=== PATIENT | male | born 1950 | race Caucasian/White ===

== ENCOUNTER 2017-02-25 14:32 | Emergency (ER) | payer OTHER, BC ==
[~2017-02-25] VITALS: Ht 167.6 cm; Wt 87.5 kg
[~2017-02-25 14:32] MED LIST: ACET-2619 PO; CLON0.5T PO; Oxcarbazepine PO; PREG225C PO; RIVA15TA1 PO; TAMS0.4C97 PO; VENL150T PO; ZONI100C5 PO; [UNRECOGNIZED DRUG - CODE] PO; [UNRECOGNIZED DRUG - CODE] PO
[2017-02-25 14:35] VITALS: BP 119/73
[2017-02-25] MEDS ORDERED: ACETAMINOPHEN 325 MG TAB PO ONE (14:55)
[2017-02-25 16:12] VITALS: BP 121/71
== END 2017-02-25 16:11 | disposition home or self-care (01) ==
LOC: MED 14:32
DX: M79.674 Pain in right toe(s) (principal)
CPT/HCPCS: 73630; 99284; Q0092

== ENCOUNTER 2017-03-04 09:45 | Emergency (ER) | payer OTHER, BC ==
[~2017-03-04] VITALS: Ht 167.6 cm; Wt 86.6 kg
[2017-03-04 09:53] VITALS: BP 158/113
--- NOTE | 2017-03-04 10:20 | NUR ---
PT BIB CAREGIVER FOR EVALUATION OF URINARY FREQUENCY X2 DAYS. HX SEIZURE DISORDER, BPH, ANXIETY, GERD, DEPRESSION, DVT RIGHT LEG. DENIES N/V/D; SKIN IS PINK/WARM/DRY; AAOX4 WITH EVEN AND STEADY GAIT; LUNGS CLEAR BL; HR EVEN AND REGULAR; PT DENIES ANY FEVER, CP, SOB, OR COUGH AT THIS TIME; PATIENT STATES PAIN OF 0/10 AT THIS TIME; VSS; PATIENT POSITIONED FOR COMFORT; HOB ELEVATED; BEDRAILS UP X2; BED DOWN. ER MD MADE AWARE OF PT STATUS.
--- NOTE | 2017-03-04 10:22 | NUR ---
DR GARCIA EVALUATING THE PT WITH TRACK HELPER AT BEDSIDE
--- NOTE | 2017-03-04 10:49 | NUR ---
PT TAKEN TO CT VIA [facility]
[2017-03-04 10:52] LABS: BASOPHILS # (AUTO) 0.2 K/uL (0.00-0.22); EOSINOPHILS # (AUTO) 0.5 K/uL (0-0.4); MEAN CORPUSCULAR HEMOGLOBIN 29 pg (27-31)
[2017-03-04 10:57] LABS: BASOPHILS % (AUTO) 2.1 % (0.0-2.0); EOSINOPHILS % (AUTO) 6.9 % (0.0-4.0); HEMATOCRIT 50.7 % (36-52); LYMPHOCYTES # (AUTO) 1.3 K/uL (2.0-11.5); LYMPHOCYTES % (AUTO) 16.2 % (20.5-51.1); MEAN CORPUSCULAR HGB CONC 34 g/dL (33-37); MEAN CORPUSCULAR VOLUME 85 fL (80-94); MONOCYTES # (AUTO) 0.5 K/uL (0.8-1.0); MONOCYTES % (AUTO) 6.6 % (1.7-9.3); NEUTROPHILS # (AUTO) 5.3 K/uL (1.8-7.7); NEUTROPHILS % (AUTO) 68.2 % (42.2-75.2); PLATELET COUNT (AUTO) 193 K/uL (140-450); RED BLOOD CELL COUNT(AUTO) 5.94 MIL/uL (4.20-6.10); RED CELL DISTRIBUTION WIDTH 12.1 % (11.6-13.7)
[2017-03-04 11:06] LABS: ANION GAP 11.1 (8-16); CALCIUM 9.5 mg/dL (8.5-10.1); CARBON DIOXIDE 28.4 mmol/L (21-32); CREATININE 1.3 mg/dL (0.7-1.3); POTASSIUM 3.5 mmol/L (3.5-5.1)
[2017-03-04 11:11] LABS: ALBUMIN 3.9 g/dL (3.4-5.0); INR 1.3 (0.8-1.2); PARTIAL THROMBOPLASTIN TIME 28.8 secs (22-35.6); PROTHROMBIN TIME 12.9 secs (10.8-13.4); TOTAL BILIRUBIN 0.5 mg/dL (0.0-1.0); TOTAL PROTEIN, SERUM 7.2 g/dL (6.4-8.2); WHITE BLOOD COUNT (AUTO) 7.8 K/uL (4.8-10.8)
[2017-03-04 12:07] LABS: APPEARANCE,URINE CLEAR (CLEAR); BILIRUBIN,URINE NEGATIVE (NEGATIVE); BLOOD, URINE NEGATIVE (NEGATIVE); COLOR,URINE YELLOW (YELLOW); LEUKOCYTE ESTERASE ,URINE NEGATIVE (NEGATIVE); NITRITE, URINE NEGATIVE (NEGATIVE); PROTEIN,URINE NEGATIVE (NEGATIVE); UGLUCOSE NEGATIVE (NEGATIVE); UROBILINOGEN,URINE 0.2 EU/dL (0.2 - 1)
[2017-03-04 12:15] VITALS: BP 128/78
--- NOTE | 2017-03-04 12:15 | NUR ---
Patient discharged with v/s stable. Written and verbal after care instructions given and explained. Patient verbalized understanding. Ambulatory with steady gait. All questions addressed prior to discharge. Advised to follow up with PMD.
== END 2017-03-04 12:15 | disposition home or self-care (01) ==
LOC: MED 09:45
DX: R32 Unspecified urinary incontinence (principal); R53.1 Weakness; Z86.718 Personal history of other venous thrombosis and embolism; J45.909 Unspecified asthma, uncomplicated; Z85.828 Personal history of other malignant neoplasm of skin; F03.90 Unspecified dementia, unspecified severity, without behavioral disturbance, psychotic disturbance, mood disturbance, and anxiety
CPT/HCPCS: 36415; 70450; 71010; 80053; 81003; 84484; 85025; 85610; 85730; 93005; 99285; Q0092

== ENCOUNTER 2017-08-25 17:02 | Emergency (ER) | payer OTHER, BC ==
[~2017-08-25] VITALS: Ht 172.7 cm; Wt 85.5 kg
[~2017-08-25 17:02] MED LIST changes: +RISP1TAB PO; -[UNRECOGNIZED DRUG - CODE] PO
[2017-08-25 17:11] VITALS: BP 151/115
[2017-08-25] MEDS ORDERED: ONDANSETRON 4 MG/2 ML VIAL IVP ONE (17:15)
[2017-08-25] MEDS ORDERED: DICYCLOMINE HCL LIQUID 20 MG, ALUMINUM HYD/MAG/SIMETHICONE 30 ML, LIDOCAINE VISCOUS 2% ... PO ONE ×3 (17:15)
[2017-08-25] MEDS ORDERED: FAMOTIDINE 20 MG/2 ML VIAL IVP ONE (17:15)
[2017-08-25] MEDS ORDERED: NITROGLYCERIN 2% 1 GM PKT TP ONE (17:15)
[2017-08-25] MEDS ORDERED: ASPIRIN 325 MG TAB PO ONE (17:15)
[2017-08-25 17:58] LABS: BASOPHILS # (AUTO) 0.3 K/uL (0.00-0.22); EOSINOPHILS # (AUTO) 0.2 K/uL (0-0.4); HEMOGLOBIN 17.2 g/dL (12.0-18.0); LYMPHOCYTES # (AUTO) 0.9 K/uL (2.0-11.5); MEAN CORPUSCULAR HEMOGLOBIN 28 pg (27-31); MEAN CORPUSCULAR HGB CONC 33 g/dL (33-37); MEAN CORPUSCULAR VOLUME 86 fL (80-94); MONOCYTES # (AUTO) 0.2 K/uL (0.8-1.0); NEUTROPHILS # (AUTO) 6.3 K/uL (1.8-7.7); PLATELET COUNT (AUTO) 171 K/uL (140-450); RED BLOOD CELL COUNT(AUTO) 6.18 MIL/uL (4.20-6.10); RED CELL DISTRIBUTION WIDTH 12.4 % (11.6-13.7); WHITE BLOOD COUNT (AUTO) 7.9 K/uL (4.8-10.8)
--- NOTE | 2017-08-25 18:00 | NUR ---
PATIENT IS A 67 MALE BIB SELF FOR CHEST PAIN HAS A [facility] CALLED AND ACCEPTED TRANSFER IS TAKING PLACE AT THIS WRITING.
[2017-08-25 18:08] VITALS: BP 170/104
--- NOTE | 2017-08-25 18:09 | NUR ---
Patient discharged with v/s stable. Written and verbal after care instructions given and explained. Patient verbalized understanding. Ambulance Transport with [facility] TO [facility] All questions addressed prior to discharge. Advised to follow up with PMD.
--- NOTE | 2017-08-25 18:20 | NUR ---
UNABLE TO ESTABLISH IV AFTER SEVERAL ATTEMPTS, ALSO DUE TO TIME CONSTRAINTS NO MEDS WERE GIVEN WE WERE A NURSE SHORT AND I COULD NOT LEAVE PATIENT TO GET MEDS.
[2017-08-25 18:52] LABS: PROTHROMBIN TIME 10.7 secs (10.8-13.4)
== END 2017-08-25 18:20 | disposition short-term general hospital (02) ==
LOC: MED 17:02
DX: I21.3 ST elevation (STEMI) myocardial infarction of unspecified site (principal); Z85.828 Personal history of other malignant neoplasm of skin; F03.90 Unspecified dementia, unspecified severity, without behavioral disturbance, psychotic disturbance, mood disturbance, and anxiety
CPT/HCPCS: 36415; 71045; 83880; 84484; 85025; 85610; 85730; 93005; 99291; Q0092

== ENCOUNTER 2017-09-08 14:36 | Emergency (ER) | payer OTHER, BC ==
[~2017-09-08] VITALS: Ht 172.7 cm; Wt 83.1 kg
[2017-09-08 16:10] VITALS: BP 135/85
--- NOTE | 2017-09-08 18:38 | NUR ---
PATIENT PRESENTS TO ED WITH right dorsal hand skin tear . PT STATES [he almost fell in the restroom while voiding---injured self when breaking fall by holding self against restroom wall] . DENIES N/V/D; SKIN IS PINK/cool/DRY; AAOX4 WITH EVEN AND STEADY GAIT; LUNGS CLEAR BL; HR EVEN AND REGULAR; PT DENIES ANY FEVER, CP, SOB, OR COUGH AT THIS TIME; PATIENT STATES PAIN OF 6/10 AT THIS TIME; VSS; PATIENT POSITIONED FOR COMFORT; HOB ELEVATED; BEDRAILS UP X2; BED DOWN. ER MD MADE AWARE OF PT STATUS.
[2017-09-08] MEDS ORDERED: NEOMYCIN/POLYMYXIN/BACITRACIN 0.9 GM/1 PKT TP ONE (18:45)
--- NOTE | 2017-09-08 19:13 | NUR ---
neosporin applied and gauze placed----
[2017-09-08 19:23] VITALS: BP 122/79
--- NOTE | 2017-09-08 19:23 | NUR ---
Patient discharged with v/s stable. Written and verbal after care instructions given and explained. Patient alert, oriented and verbalized understanding of instructions. Wheel Chair Assisted with to detention. All questions addressed prior to discharge. ID band removed. Patient advised to follow up with PMD. Rx of NEOSPORIN given. Patient educated on indication of medication including possible reaction and side effects. Opportunity to ask questions provided and answered.
== END 2017-09-08 19:23 | disposition home or self-care (01) ==
LOC: MED 14:36
DX: S60.221A Contusion of right hand, initial encounter (principal); I25.2 Old myocardial infarction; Z85.828 Personal history of other malignant neoplasm of skin; W22.01XA Walked into wall, initial encounter; Y93.89 Activity, other specified; Y92.89 Other specified places as the place of occurrence of the external cause; Y99.8 Other external cause status
CPT/HCPCS: 90471; 90715; 99283

== ENCOUNTER 2018-05-23 23:02 | Emergency (ER) | payer OTHER, BC ==
[~2018-05-23] VITALS: Ht 162.6 cm; Wt 77.1 kg
[2018-05-23 23:05] VITALS: BP 134/87
[2018-05-24] MEDS ORDERED: XALOS OP (00:19)
[2018-05-24] MEDS ORDERED: LEVO5TAB32 PO (00:19)
[2018-05-24] MEDS ORDERED: VITE200 PO (00:19)
[2018-05-24] MEDS ORDERED: CALCIUM +D3 (00:19)
[2018-05-24] MEDS ORDERED: FIBER CAPSULE (00:19)
[2018-05-24] MEDS ORDERED: ROSU5TAB PO (00:19)
[2018-05-24] MEDS ORDERED: RANI-485 PO (00:19)
[2018-05-24] MEDS ORDERED: VITD1000 PO (00:19)
[2018-05-24] MEDS ORDERED: TICA90TA PO (00:19)
[2018-05-24] MEDS ORDERED: VITB12 PO (00:19)
[2018-05-24] MEDS ORDERED: DOCU-61 PO (00:19)
[2018-05-24] MEDS ORDERED: RISP0.5T3 PO (00:26)
[2018-05-24] MEDS: NACL 0.9% 1,000 ML IV ONE (01:52)
[2018-05-24 01:53] LABS: HEMATOCRIT 46.5 % (36-52); HEMOGLOBIN 15.7 g/dL (12.0-18.0); MEAN CORPUSCULAR HEMOGLOBIN 30 pg (27-31); MEAN CORPUSCULAR HGB CONC 34 g/dL (33-37); MEAN CORPUSCULAR VOLUME 87.9 fL (80-94); PLATELET COUNT (AUTO) 169 K/uL (140-450); RED BLOOD CELL COUNT(AUTO) 5.28 MIL/uL (4.20-6.10); RED CELL DISTRIBUTION WIDTH 13.3 % (11.6-13.7); WHITE BLOOD COUNT (AUTO) 6.4 K/uL (4.8-10.8)
[2018-05-24 02:04] LABS: EOSINOPHILS % (MANUAL) 3 % (0-4); LYMPHOCYTES % (MANUAL) 27 % (20-46); MONOCYTES % (MANUAL) 9 % (5-12)
[2018-05-24 02:06] LABS: ANION GAP 10.5 (8-16); CARBON DIOXIDE 26.4 mmol/L (21-32); POTASSIUM 4.9 mmol/L (3.5-5.1)
[2018-05-24 02:08] LABS: APPEARANCE,URINE BLOODY (CLEAR); BILIRUBIN,URINE NEGATIVE (NEGATIVE); BLOOD, URINE 3+ (NEGATIVE); COLOR,URINE BLOODY (YELLOW); LEUKOCYTE ESTERASE ,URINE NEGATIVE (NEGATIVE); NITRITE, URINE NEGATIVE (NEGATIVE); PH,URINE 7.5 (5.0-9.0); UGLUCOSE NEGATIVE (NEGATIVE)
[2018-05-24 02:09] LABS: RBC,URINE TOO NUMEROUS TO COUN /HPF (0-5); WBC,URINE 0-5 (RARE) /HPF (0-5)
[2018-05-24 02:13] LABS: ALBUMIN 3.8 g/dL (3.4-5.0); TOTAL BILIRUBIN 0.3 mg/dL (0.0-1.0)
[2018-05-24 03:57] VITALS: BP 164/92
== END 2018-05-24 03:58 | disposition home or self-care (01) ==
LOC: MED 23:02
DX: R31.9 Hematuria, unspecified (principal); N20.0 Calculus of kidney; F03.90 Unspecified dementia, unspecified severity, without behavioral disturbance, psychotic disturbance, mood disturbance, and anxiety; Z85.828 Personal history of other malignant neoplasm of skin; Z79.899 Other long term (current) drug therapy
CPT/HCPCS: 36415; 80053; 81001; 83690; 85025; 99285; C1758; J7030

== ENCOUNTER 2018-06-09 17:58 | Emergency (ER) | payer OTHER, BC ==
[~2018-06-09] VITALS: Ht 177.8 cm; Wt 95.3 kg
[~2018-06-09 17:58] MED LIST changes: +CALCIUM +D3; +DOCU-61 PO; +FIBER CAPSULE; +LEVO5TAB32 PO; +RANI-485 PO; +RISP0.5T3 PO; -RISP1TAB PO; +ROSU5TAB PO; +TICA90TA PO; +VITB12 PO; +VITD1000 PO; +VITE200 PO; +XALOS OP
--- NOTE | 2018-06-09 17:58 | NUR ---
PT BIBA ALS TO BED 7
[2018-06-09 18:06] VITALS: BP 158/100
--- NOTE | 2018-06-09 18:10 | NUR ---
PATIENT BIBA W/C/O "2 SEIZURES TODAY." CAREGIVER STATES THE FIRST ONE WAS WITNESSED BY FAMILY, WAS A GRAN MAL AND LASTED FOR 2 MINS. THE SECOND SEZIURE WAS WITNESSED BY CAREGIVER WHO STATED THE PT WAS STANDING UP, PEEING, AND STARTED TO HAVE A SEZIURE. AND HELPED PT TO THE FLOOR BUT THE PT HIT HIS HEAD TO THE SINK. PT HAS SMALL BUMP ON BACK HEAD. DENIES ANY PAIN, PERRLA INTACT. PT POST ICTAL AT THIS TIME BUT KNOWS HIS NAME, BIRTHDAY AND [facility]. HX: SEZIURES, HTN, [place] IN 2017, DEMENTIA AND BLOOD CLOTS. NKA. DENIES N/V/D; SKIN IS PINK/WARM/DRY; LUNGS CLEAR BL; HR EVEN AND REGULAR; PT DENIES ANY FEVER, CP, SOB, OR COUGH AT THIS TIME; VSS; PATIENT POSITIONED FOR COMFORT; HOB ELEVATED; BEDRAILS UP X2; BED DOWN. ER MD MADE AWARE OF PT STATUS.
--- NOTE | 2018-06-09 18:13 | NUR ---
Patient being evaluated by physician at bedside.
[2018-06-09] MEDS ORDERED: ZONI100C5 PO (18:20)
[2018-06-09] MEDS ORDERED: LORazepam 2 MG/ML VIAL IVP ONE (18:20)
[2018-06-09] MEDS ORDERED: OXCA300T PO (18:20)
--- NOTE | 2018-06-09 18:37 | NUR ---
PT TAKEN TO CT IN [facility]
--- NOTE | 2018-06-09 18:47 | NUR ---
PT RETURNED FROM CT
--- NOTE | 2018-06-09 19:00 | NUR ---
16FR TEMPLE CATHETER INSERTED, PT TOLERATED WELL. URINE COLLECTED AND SENT TO LAB.
[2018-06-09 19:08] LABS: BASOPHILS % (AUTO) 0.2 % (0.0-2.0); EOSINOPHILS % (AUTO) 0.6 % (0.0-4.0); HEMATOCRIT 51.3 % (36-52); HEMOGLOBIN 17.4 g/dL (12.0-18.0); LYMPHOCYTES # (AUTO) 0.4 K/uL (2.0-11.5); LYMPHOCYTES % (AUTO) 6.7 % (20.5-51.1); MEAN CORPUSCULAR HEMOGLOBIN 30 pg (27-31); MEAN CORPUSCULAR HGB CONC 34 g/dL (33-37); MEAN CORPUSCULAR VOLUME 88.1 fL (80-94); MONOCYTES # (AUTO) 0.3 K/uL (0.8-1.0); MONOCYTES % (AUTO) 4.6 % (1.7-9.3); NEUTROPHILS # (AUTO) 5.4 K/uL (1.8-7.7); NEUTROPHILS % (AUTO) 87.9 % (42.2-75.2); PLATELET COUNT (AUTO) 194 K/uL (140-450); RED BLOOD CELL COUNT(AUTO) 5.82 MIL/uL (4.20-6.10); WHITE BLOOD COUNT (AUTO) 6.2 K/uL (4.8-10.8)
--- NOTE | 2018-06-09 19:13 | NUR ---
Patient being evaluated by physician at bedside. Addendum: 06/09/18 at 1914 by LINDSEY GIOVANNY)
--- NOTE | 2018-06-09 19:15 | NUR ---
PT LYING IN BED, STATED HE WAS NOT HAVING PAIN AT THIS TIME. VITALS STABLE.
--- NOTE | 2018-06-09 19:17 | NUR ---
report given to security shift manager nurse for continue of care. pt is resting in bed, no s/s of distress, vss, denies pain.
--- NOTE | 2018-06-09 19:17 | NUR ---
SEIZURE PRECAUTIONS IN PLACE. ER MADE AWARE
[2018-06-09 19:29] LABS: APPEARANCE,URINE HAZY (CLEAR); COLOR,URINE YELLOW (YELLOW)
[2018-06-09 19:30] LABS: BILIRUBIN,URINE NEGATIVE (NEGATIVE); BLOOD, URINE TRACE (NEGATIVE); LEUKOCYTE ESTERASE ,URINE NEGATIVE (NEGATIVE); NITRITE, URINE NEGATIVE (NEGATIVE); UGLUCOSE NEGATIVE (NEGATIVE)
[2018-06-09 19:31] LABS: RBC,URINE 3-10 (FEW) /HPF (0-5); WBC,URINE 0-5 (RARE) /HPF (0-5)
[2018-06-09 19:38] LABS: PROTHROMBIN TIME 12.1 secs (10.8-13.4)
[2018-06-09 20:10] LABS: ANION GAP 12.3 (8-16); ASPARTATE AMINOTRANSFERASE 23 U/L (15-37); CARBON DIOXIDE 25.7 mmol/L (21-32); CHLORIDE 96 mmol/L (98-107); CREATININE 1.2 mg/dL (0.7-1.3); GFR ARICAN-AMERICAN 78 mL/min (>90); GLUCOSE 125 mg/dL (74-106); SODIUM SERUM 130 mmol/L (136-145); TOTAL BILIRUBIN 0.5 mg/dL (0.0-1.0); UREA NITROGEN, BLOOD 12 mg/dL (7-18)
[2018-06-09 20:11] LABS: ACETAMINOPHEN < 0.5 ug/ml (10-30); FREE T4 (FREE THYROXINE) 0.75 ng/dL (0.76-1.46); PHENYTOIN (DILANTIN) < 0.5 ug/ml (10.0-20.0); SALICYLATE < 2.8 mg/dL (2.8-20.0); THYROID STIMULATING HORMONE 5.77 uIU/mL (0.34-3.74)
--- NOTE | 2018-06-09 20:40 | NUR ---
F/C D/C. PT TOLERATED WELL.
[2018-06-09 20:43] VITALS: BP 147/81
--- NOTE | 2018-06-09 20:43 | NUR ---
Patient discharged with v/s stable. Written and verbal after care instructions given and explained. Patient verbalized understanding. Wheel Chair Assisted with by caregiver. All questions addressed prior to discharge. Advised to follow up with PMD.
[2018-06-10 12:53] LABS: T3 UPTAKE 23 % (24-39)
== END 2018-06-09 20:43 | disposition home or self-care (01) ==
LOC: MED 17:58
DX: S09.90XA Unspecified injury of head, initial encounter (principal); G40.909 Epilepsy, unspecified, not intractable, without status epilepticus; F03.90 Unspecified dementia, unspecified severity, without behavioral disturbance, psychotic disturbance, mood disturbance, and anxiety; Z79.899 Other long term (current) drug therapy; Z85.828 Personal history of other malignant neoplasm of skin; W22.03XA Walked into furniture, initial encounter; Y93.89 Activity, other specified; Y92.89 Other specified places as the place of occurrence of the external cause; Y99.8 Other external cause status
CPT/HCPCS: 36415; 70450; 71045; 80053; 80173; 80185; 81001; 82550; 82948; 83605; 83735; 84439; 84443; 84479; 84484; 85025; 85379; 85610; 85730; 96374; 99285; G0480; G0482; J2060

== ENCOUNTER 2018-08-08 16:16 | Inpatient (IN) | payer OTHER, BC ==
[~2018-08-08] VITALS: Ht 165.1 cm; Wt 58.5 kg
[~2018-08-08 16:16] MED LIST changes: +OXCA300T PO
--- NOTE | 2018-08-08 16:20 | NUR ---
nursing students inserted iv right forearm 22ga---pt c/o pain after 10 mins noted infiltration -----heat bad applied; iv d/c'd
[2018-08-08 16:22] VITALS: BP 134/95
--- NOTE | 2018-08-08 16:29 | NUR ---
PT AMBULATES WITH WALKER ASSISTANCE TO BED 11
--- NOTE | 2018-08-08 16:43 | NUR ---
PATIENT PRESENTS TO ED WITH C/O LEFT GREAT TOE INGROWN REDNESS SWELLING TENDER >4 DAYS . DENIES N/V/D; SKIN IS PINK/WARM/DRY; AAOX4 WITH EVEN AND STEADY GAIT; LUNGS CLEAR BL; HR EVEN AND REGULAR; PT DENIES ANY FEVER, CP, SOB, OR COUGH AT THIS TIME; PATIENT STATES PAIN OF 7/10 AT THIS TIME; VSS; PATIENT POSITIONED FOR COMFORT; HOB ELEVATED; BEDRAILS UP X2; BED DOWN. ER MD MADE AWARE OF PT STATUS.
[2018-08-08] MEDS ORDERED: NACL 0.9% 500 ML IV SCH (16:44)
[2018-08-08] MEDS ORDERED: PIPERACILLIN/TAZOBACTAM 3.375 GM in DEXT 5% MINI-BAG PLUS 50 ML IV ONE (16:45)
[2018-08-08] MEDS ORDERED: NEOMYCIN/POLYMYXIN/BACITRACIN 0.9 GM/1 PKT TP ONE (16:45)
[2018-08-08] MEDS ORDERED: ONDANSETRON 4 MG/2 ML VIAL IM/IVP PRN (16:50)
[2018-08-08] MEDS ORDERED: LORazepam 2 MG/ML VIAL IM/IVP PRN (16:50)
[2018-08-08] MEDS ORDERED: ZOLPIDEM 5 MG TAB PO PRN (16:50)
[2018-08-08] MEDS ORDERED: HYDROcodone/APAP 5/325 MG 1 TAB TAB PO PRN (16:50)
[2018-08-08] MEDS ORDERED: ACETAMINOPHEN 325 MG TAB PO PRN (16:50)
[2018-08-08] MEDS ORDERED: DOCUSATE SODIUM 100 MG GELCAP PO PRN (16:50)
[2018-08-08] MEDS ORDERED: INFLUENZA VIRUS VACCINE QUAD 0.5 ML SYR IMVAC PRN (16:55)
[2018-08-08] MEDS ORDERED: PIPERACILLIN/TAZOBACTAM 3.375 GM VIAL IV ONE ×2 (17:06→20:46)
[2018-08-08 17:25] LABS: BASOPHILS # (AUTO) 0.1 K/uL (0.00-0.22); BASOPHILS % (AUTO) 1.3 % (0.0-2.0); EOSINOPHILS # (AUTO) 0.4 K/uL (0-0.4); EOSINOPHILS % (AUTO) 7.2 % (0.0-4.0); HEMATOCRIT 47.9 % (36-52); HEMOGLOBIN 16.1 g/dL (12.0-18.0); LYMPHOCYTES # (AUTO) 0.6 K/uL (2.0-11.5); LYMPHOCYTES % (AUTO) 11.9 % (20.5-51.1); MEAN CORPUSCULAR HEMOGLOBIN 30 pg (27-31); MEAN CORPUSCULAR HGB CONC 34 g/dL (33-37); MEAN CORPUSCULAR VOLUME 88.4 fL (80-94); MONOCYTES # (AUTO) 0.3 K/uL (0.8-1.0); MONOCYTES % (AUTO) 5.7 % (1.7-9.3); NEUTROPHILS # (AUTO) 3.8 K/uL (1.8-7.7); NEUTROPHILS % (AUTO) 73.9 % (42.2-75.2); PLATELET COUNT (AUTO) 195 K/uL (140-450); RED BLOOD CELL COUNT(AUTO) 5.42 MIL/uL (4.20-6.10); RED CELL DISTRIBUTION WIDTH 13.1 % (11.6-13.7); WHITE BLOOD COUNT (AUTO) 5.2 K/uL (4.8-10.8)
--- NOTE | 2018-08-08 17:27 | NUR ---
XRAY AT BEDSIDE
[2018-08-08 17:35] LABS: ANION GAP 12.1 (8-16); CARBON DIOXIDE 27.5 mmol/L (21-32); CREATININE 1.4 mg/dL (0.7-1.3); POTASSIUM 4.6 mmol/L (3.5-5.1)
[2018-08-08 17:40] LABS: MAGNESIUM 2.3 mg/dL (1.8-2.4); TOTAL BILIRUBIN 0.3 mg/dL (0.0-1.0)
[2018-08-08 17:42] LABS: PROTHROMBIN TIME 10.5 secs (10.8-13.4)
[2018-08-08 17:51] LABS: PHOSPHORUS 3.6 mg/dL (2.5-4.9); THYROID STIMULATING HORMONE 2.03 uIU/mL (0.34-3.74)
--- NOTE | 2018-08-08 17:56 | NUR ---
x-rays completed at bedside labs collected samples
--- NOTE | 2018-08-08 18:08 | NUR ---
PT TAKEN TO TELE FLOOR BY SERENA CHACON AND LUCAS MUELLER
[2018-08-08] MEDS: NACL 0.9% 1,000 ML IV SCH (18:20)
--- NOTE | 2018-08-08 18:20 | NUR ---
RECEIVED PT FROM ER NURSE VIA [facility], PT IS AWAKE AND ALERT AND AMBULATED WITH ASSIST TO THE BED, PT USES WALKER, MADE COMFORTABLE ON THE BED, SIDE RAILS UP AND PADDED, CALL LIGHT WITHIN REACH, SEIZURE PRECAUTION ENFORCED. PT HAS AN IV LINE ON THE LEFT HAND G. 22. PT HAS A LEFT BIG TOE WOUND FROM AN INGROWN, SERVICED BY CRIMINAL ANALYST, NO SOB NOTED AND WILL ENDORSE PT TO TRAVELING BUYER NURSE.
--- NOTE | 2018-08-08 18:22 | NUR ---
Pt transferred to Tele via [facility] ROOM 105-A REPORT GIVEN TO RN
--- NOTE | 2018-08-08 18:30 | NUR ---
MRSA SWAB DONE TO PT AND SAMPLE WAS SENT TO LAB. ARM BANDS PLACED AND FALL PRECAUTION INITIATED.
[2018-08-08] MEDS ORDERED: NITROGLYCERIN 0.4 MG TAB SL PRN (19:05)
[2018-08-08] MEDS ORDERED: LORazepam 2 MG/ML VIAL IVP PRN (19:05)
--- NOTE | 2018-08-08 19:25 | NUR ---
ENDORSED PT TO HELICOPTER UTILITY AIRCREWMAN NURSEWILBUR FOR CONTINUITY OF CARE, PT IS STILL EATING HIS DINNER WITH ON THE BEDSIDE. PT IS STABLE.
--- NOTE | 2018-08-08 19:26 | NUR ---
RECEIVED BEDSIDE REPORT. PT IS A&O X4. RESPIRATIONS ARE EQUAL AND UNLABORED. SEIZURE PRECAUTION ENFORCED. MADE COMFORTABLE ON THE BED, SIDE RAILS UP AND PADDED, CALL LIGHT WITHIN REACH. PT HAS AN IV LINE ON THE LEFT HAND G. 22. INFUSING PER ORDERS. PT HAS A LEFT BIG TOE WOUND FROM AN INGROWN, SERVICED BY TAPE RECORDER MECHANIC DONE EARLIER. UA PENDING PT IS AWARE. URINAL AT BEDISDE. PTS JEREMY IS AT BEDSIDE IS CONCERN ABOUT PATIENT RECEIVING ALL HIS HOME MEDS AT NIGHT. WILL FOLLOW UP. SAFETY MEASURES ARE IN PLACE.
[2018-08-08 20:00] VITALS: BP 157/91
[2018-08-08] MEDS: VENLAFAXINE XR 75 MG CAPER PO SCH (20:46)
[2018-08-08] MEDS: risperiDONE 1 MG TAB PO SCH (20:46)
[2018-08-08] MEDS: PREGABALIN 50 MG CAP PO SCH (20:48)
[2018-08-08] MEDS: OXcarbazepine 150 MG TAB PO SCH (20:49)
[2018-08-08] MEDS: METOPROLOL 25 MG TAB PO SCH (20:49)
[2018-08-08] MEDS: PIPER/TAZO 3.375GM/D5W PREMIX 50 ML IV SCH (20:50)
[2018-08-08] MEDS ORDERED: MEMANTINE 10 MG TAB PO ONE (20:55)
[2018-08-08] MEDS ORDERED: ZONISAMIDE 400 MG PO SCH (21:00)
[2018-08-08] MEDS: clonazePAM 0.5 MG TAB PO SCH (21:07)
--- NOTE | 2018-08-08 21:13 | NUR ---
ALL PATIENTS MEDS WERE GIVEN PTS WAS CONCERN THAT HE RECEIVES ZONISAMIDE. IS AWARE PT RECEIVED ALL HIS MEDS. WILL CONTINUE TO MONITOR. ALL NEEDS MET AT THIS TIME.
--- NOTE | 2018-08-08 21:25 | NUR ---
PT'S JEREMY WAS CONCERN ABOUT PT'S MEDICATIONS AT BED TIME SPECIALLY ZONISAMIDE(ZONEGRAN).BECAUSE WE DON'T CARRY THIS MED PHARMACY DIDN'T VERIFY THAT.BUT WE HAD PT'S MED HERE.TALKED W/RESIDENT .SHE SAID BECAUSE PT'S IS SO CONCERN ABOUT THAT GIVE TONIGHT.DOSE FOR TONIGHT GIVEN AND CALLED JEREMY (PT'S )AND TOLD HER THAT MED GIVEN TO PT.
[2018-08-08] MEDS ORDERED: TAMSULOSIN 0.4 MG CAP PO SCH (22:00)
[2018-08-08] MEDS ORDERED: MEMANTINE 10 MG TAB PO SCH (22:00)
--- NOTE | 2018-08-08 22:30 | NUR ---
ASSISTED PT WITH URINAL. UA COLLECTED AND SENT TO LAB. REPOSITION PT FOR COMFORT. ALL NEEDS MET AT THIS TIME. CALL LIGHT WITHIN REACH.
[2018-08-08 23:54] VITALS: BP 131/84
--- NOTE | 2018-08-08 23:57 | NUR ---
VITAL SIGNS ARE WITHIN NORMAL LIMITS. PT DENIES ANY PAIN. SAFETY MEASURES ARE IN PLACE. CALL LIGHT WITHIN REACH
[2018-08-09 01:43] LABS: APPEARANCE,URINE CLEAR (CLEAR); BILIRUBIN,URINE NEGATIVE (NEGATIVE); BLOOD, URINE NEGATIVE (NEGATIVE); COLOR,URINE YELLOW (YELLOW); LEUKOCYTE ESTERASE ,URINE NEGATIVE (NEGATIVE); NITRITE, URINE NEGATIVE (NEGATIVE); PH,URINE 7.5 (5.0-9.0); UGLUCOSE NEGATIVE (NEGATIVE)
[2018-08-09 01:50] LABS: BARBITURATE, URINE NEG. ng/ml (NEG <=200); BENZODIAZEPINE, URINE NEG. ng/mL (NEG <=200); CANNABINOID, URINE NEG. ng/mL (NEG <=50); COCAINE, URINE NEG. ng/mL (NEG <=300); OPIATE, URINE NEG. ng/mL (NEG <=2000); PHENCYCLIDINE SCREEN,URINE NEG. ng/mL (NEG <=25)
[2018-08-09 03:58] VITALS: BP 106/72
--- NOTE | 2018-08-09 04:03 | NUR ---
VITAL SIGNS ARE WITHIN NORMAL LIMITS. ALL NEEDS MET AT THIS TIME. CALL LIGHT WITHIN REACH
[2018-08-09] MEDS: PIPER/TAZO 3.375GM/D5W PREMIX 50 ML IV SCH ×3 (05:54→20:02)
[2018-08-09] MEDS: PANTOPRAZOLE 40 MG TABEC PO SCH (05:54)
--- NOTE | 2018-08-09 05:54 | NUR ---
ZOSYN NOW INFUSING PER ORDERS. DUE MEDICATION GIVEN. PT TOLERATED WELL. ALL NEEDS MET AT THIS TIME. WILL CONTINUE TO MONITOR.
[2018-08-09] MEDS ORDERED: PIPERACILLIN/TAZOBACTAM 3.375 GM VIAL IV ONE (05:58)
--- NOTE | 2018-08-09 06:10 | NUR ---
PATIENT HAS BEEN SCREENED AND CATEGORIZED MODERATE NUTRITION RISK. PATIENT WILL BE SEEN WITHIN 3-5 DAYS OF ADMISSION. 08/11/18-08/14/18 ABHIJEET SHORT MS, RDN
--- NOTE | 2018-08-09 07:26 | NUR ---
ENDORSED PATIENT TO DAY SHIFT RN. PT IN STABLE CONDITION.
[2018-08-09 07:30] LABS: BASOPHILS # (AUTO) 0.1 K/uL (0.00-0.22); BASOPHILS % (AUTO) 1.3 % (0.0-2.0); EOSINOPHILS # (AUTO) 0.3 K/uL (0-0.4); EOSINOPHILS % (AUTO) 6.4 % (0.0-4.0); HEMATOCRIT 44.4 % (36-52); HEMOGLOBIN 14.9 g/dL (12.0-18.0); LYMPHOCYTES # (AUTO) 1.7 K/uL (2.0-11.5); LYMPHOCYTES % (AUTO) 32.5 % (20.5-51.1); MEAN CORPUSCULAR HEMOGLOBIN 30 pg (27-31); MEAN CORPUSCULAR HGB CONC 34 g/dL (33-37); MEAN CORPUSCULAR VOLUME 87.8 fL (80-94); MONOCYTES # (AUTO) 0.5 K/uL (0.8-1.0); MONOCYTES % (AUTO) 8.5 % (1.7-9.3); NEUTROPHILS # (AUTO) 2.7 K/uL (1.8-7.7); NEUTROPHILS % (AUTO) 51.3 % (42.2-75.2); PLATELET COUNT (AUTO) 178 K/uL (140-450); RED BLOOD CELL COUNT(AUTO) 5.06 MIL/uL (4.20-6.10); RED CELL DISTRIBUTION WIDTH 12.7 % (11.6-13.7); WHITE BLOOD COUNT (AUTO) 5.4 K/uL (4.8-10.8)
--- NOTE | 2018-08-09 07:30 | NUR ---
RECEIVED PT FROM FIRST LINE PRODUCTION SUPERVISOR NURSEWILBUR, PT IS AWAKE AND SEATED ON THE BED WITH SIDE RAILS UP, PADDED AND CALL LIGHT WITHIN REACH, FALL AND SEIZURE PRECAUTION PRECAUTION INITIATED, PT HAS AN IV LINE ON THE LEFT HAND G. 22 WITH NS AT 40ML/HR, INFUSING AND INTACT. PT HAS A DRESSING IN PLACE ON THE LEFT FOOT. PT DENIES PAIN AND NO SOB NOTED. WILL CONTINUE TO MONITOR PT.
[2018-08-09 07:41] LABS: ANION GAP 11.3 (8-16); CARBON DIOXIDE 25.7 mmol/L (21-32); CREATININE 1.1 mg/dL (0.7-1.3)
[2018-08-09 07:46] LABS: CHOL/HDL RATIO 2.3 (1-4.5)
[2018-08-09 08:00] VITALS: BP 119/75
--- NOTE | 2018-08-09 08:20 | NUR ---
PT IS AWAKE AND VITAL WERE TAKEN AND IS WITHIN NORMAL LIMIT. NO SIGN OF DISTRESS NOTED AND WILL CONTINUE TO MONITOR PT.
[2018-08-09] MEDS ORDERED: TAMSULOSIN 0.4 MG CAP PO SCH (09:00)
[2018-08-09] MEDS: PREGABALIN 50 MG CAP PO SCH ×2 (09:11→20:04)
[2018-08-09] MEDS: LISINOPRIL 5 MG TAB PO SCH (09:12)
[2018-08-09] MEDS: ECOTRIN 81 MG TABEC PO SCH (09:13)
[2018-08-09] MEDS: ATORVASTATIN 20 MG TAB PO SCH (09:14)
[2018-08-09] MEDS: TAMSULOSIN 0.4 MG CAP PO SCH (09:15)
[2018-08-09] MEDS: METOPROLOL 25 MG TAB PO SCH ×2 (09:15→20:05)
--- NOTE | 2018-08-09 09:15 | NUR ---
PT IS AWAKE AND STILL EATING HIS BREAKFAST, BP WAS CHECKED PRIOR TO MEDICATION ADMINISTRATION AND IS WITHIN NORMAL LIMIT. MEDICATIONS WERE GIVEN AND PT TOLERATED IT. NO SIGN OF DISTRESS NOTED AND WILL CONTINUE TO MONITOR PT.
[2018-08-09] MEDS: clonazePAM 0.5 MG TAB PO SCH ×2 (09:20→20:15)
[2018-08-09] MEDS: OXcarbazepine 150 MG TAB PO SCH ×2 (09:49→20:08)
[2018-08-09 12:00] VITALS: BP 110/62
--- NOTE | 2018-08-09 12:14 | NUR ---
PT IS AWAKE AND SEATED ON THE BED, IV MEDICATION GIVEN VIA PIGGYBACK, PT TOLERATED IT AND NO REACTION NOTED. WILL CONTINUE TO MONITOR PT.
--- NOTE | 2018-08-09 13:40 | NUR ---
PT REFUSES EKG
--- NOTE | 2018-08-09 15:20 | NUR ---
TALKED TO PT AND INFORMED OF THE NEED TO BE REPOSITIONED AND CLEANED BUT THE PT REFUSED AND SAID THAT HE IS FINE AND HE AHD BEEN MOVING BY HIMSELF ON THE BED. INFORMED ACTING FINANCIAL COMPLIANCE OFFICER ON DUTY, DEJON SANCHEZ.
[2018-08-09 16:00] VITALS: BP 102/56
--- NOTE | 2018-08-09 16:15 | NUR ---
PT WAS REPOSITIONED AND ASSISTED TO URINATE BUT NO URINE CAME OUT, ENCOURAGE AND GAVE WATER TO DRINK. WILL MONITOR PT.
[2018-08-09] MEDS ORDERED: MEMANTINE 10 MG TAB PO SCH (17:00)
--- NOTE | 2018-08-09 17:15 | NUR ---
PT IS AWAKE AND ORAL MEDICATION WAS GIVEN AN DPT TOLERATED IT. NO SIGN OF DISTRESS NOTED. WILL MONITOR.
[2018-08-09] MEDS: NACL 0.9% 1,000 ML IV SCH (17:17)
--- NOTE | 2018-08-09 17:30 | NUR ---
PT'S CALLED AND WAS INFORMED TO GET THE PT'S MEDICATIONS AND BRING IT HOME, VERBALIZED THAT SHE WILL COME IN AN HOUR TO SEE THE PT AND GET THE MEDICATIONS.
[2018-08-09] MEDS ORDERED: traZODone 50 MG TAB PO SCH (18:30)
--- NOTE | 2018-08-09 18:45 | NUR ---
PT JUST FINISHED EATING HIS DINNER, ORAL MEDICATION GIVEN AND PT TOLERATED IT. NO SIGN OF DISTRESS NOTED AND WILL CONTINUE TO MONITOR PT.
--- NOTE | 2018-08-09 19:15 | NUR ---
ENDORSED PT TO COSTUME DESIGNER NURSEWILBUR FOR CONTINUITY OF CARE. PT IS STABLE AT THIS TIME.
--- NOTE | 2018-08-09 19:16 | NUR ---
RECEIVED BEDSIDE REPORT. PT IS A&O X4. RESPIRATIONS ARE EQUAL AND UNLABORED. SEIZURE PRECAUTION ENFORCED. MADE COMFORTABLE ON THE BED, SIDE RAILS UP AND PADDED, CALL LIGHT WITHIN REACH. PT HAS AN IV LINE ON THE LEFT HAND G. 22. INFUSING PER ORDERS. PT HAS A LEFT BIG TOE WOUND FROM AN INGROWN NAIL, SERVICED BY ENGINE DESIGNER DONE LAST NIGHT. PT SISTER IN LAW AT BEDSIDE WILL BE TAKING PTS HOME MEDS HOME. PLAN OF CARE DISCUSSED.SAFETY MEASURES ARE IN PLACE.
[2018-08-09 19:55] VITALS: BP 115/71
--- NOTE | 2018-08-09 20:02 | NUR ---
DUE MEDICATIONS GIVEN. PT TOLERATED WELL. VITAL SIGNS ARE WITHIN NORMAL LIMITS. ALL NEEDS MET AT THIS TIME . CALL LIGHT WITHIN REACH.
[2018-08-09] MEDS: risperiDONE 1 MG TAB PO SCH (20:06)
[2018-08-09] MEDS: VENLAFAXINE XR 75 MG CAPER PO SCH (20:07)
[2018-08-09] MEDS ORDERED: ZONISAMIDE 100MG CAP PO SCH (21:00)
--- NOTE | 2018-08-09 21:55 | NUR ---
PT SLEEPING COMFORTABLY IN BED. RESPIRATIONS ARE EQUAL AND UNLABORED. CALL LIGHT WITHIN REACH.
[2018-08-10] VITALS: BP 126/79
--- NOTE | 2018-08-10 00:15 | NUR ---
VITAL SIGNS ARE WITHIN NORMAL LIMITS. PT DENIES ANY SOB OR PAIN AT THIS TIME. ALL NEEDS MET. SAFETY MEASURES ARE IN PLACE. WILL CONTINUE TO MONITOR.
[2018-08-10 04:00] VITALS: BP 107/76
--- NOTE | 2018-08-10 04:00 | NUR ---
VITAL SIGN ARE WITHIN NORMAL LIMITS. NO DISTRESS NOTED. ALL NEEDS MET AT THIS TIME.
[2018-08-10] MEDS: PIPER/TAZO 3.375GM/D5W PREMIX 50 ML IV SCH (04:49)
[2018-08-10] MEDS: PANTOPRAZOLE 40 MG TABEC PO SCH (06:11)
--- NOTE | 2018-08-10 06:16 | NUR ---
DUE MEDICATIONS GIVEN. PT TOLERATED WELL. ASSISTED PT WITH URINAL. SAFETY MEASURES ARE IN PLACE. WILL CONTINUE TO MONITOR.
--- NOTE | 2018-08-10 07:29 | NUR ---
ENDORSED TO RN. PT STABLE CONDITION.
[2018-08-10] MEDS ORDERED: APAP/BUTAL/CAFF 325/50/40 MG 1 TAB PO ONE (07:30)
--- NOTE | 2018-08-10 07:30 | NUR ---
RECEIVED PT AAO WITH PERIODS OF CONFUSION. NO SOB NOTED. NO C/O PAIN AT THIS TIME. IV TO LT FOREARM PATENT AND INTACT. CHEST CLEAR. ABDOMEN SOFT, BOWEL SOUNDS PRESENT. LEFT FOOT WRAPPED WITH GAUZE AND BRYAN BANDAGE, DRESSING DRY AND INTACT. INSTRUCTED PT TO CALL FOR ASSISTANCE, CALL LIGHT WITHIN REACH, VERBALIZED PARTIAL UNDERSTANDING.
[2018-08-10] MEDS ORDERED: SULF-59 PO (07:52)
[2018-08-10] MEDS ORDERED: LACT10CA1 PO (07:53)
[2018-08-10 08:00] VITALS: BP 116/74
--- NOTE | 2018-08-10 09:00 | NUR ---
PT CONSUMED ALMOST 100% OF BREAKFAST SERVED.
[2018-08-10] MEDS: METOPROLOL 25 MG TAB PO SCH (09:16)
[2018-08-10] MEDS: OXcarbazepine 150 MG TAB PO SCH (09:16)
[2018-08-10] MEDS: ECOTRIN 81 MG TABEC PO SCH (09:16)
[2018-08-10] MEDS: ATORVASTATIN 20 MG TAB PO SCH (09:17)
[2018-08-10] MEDS: PREGABALIN 50 MG CAP PO SCH (09:17)
[2018-08-10] MEDS: LISINOPRIL 5 MG TAB PO SCH (09:17)
[2018-08-10] MEDS: clonazePAM 0.5 MG TAB PO SCH (09:18)
[2018-08-10] MEDS: TAMSULOSIN 0.4 MG CAP PO SCH (09:22)
--- NOTE | 2018-08-10 10:00 | NUR ---
SPOKE WITH PT'S JEREMY OVER THE PHONE STATED PT'S BEEF SPECIALIST WILL BE HERE TO TAX STAFF ACCOUNTANT BUT SHE NEEDS TO DROP BY FIRST TO TAX STAFF ACCOUNTANT PT'S DISCHARGE PRESCRIPTIONS THAT WAS ELECTRONICALLY SENT BY DR. NUNEZ'S RESIDENT EARLIER.
--- NOTE | 2018-08-10 11:30 | NUR ---
DISCHARGE INSTRUCTIONS GIVEN TO PT AND ANI (HUMAN SERVICES CASE MANAGER). BOTH VERBALIZED FULL UNDERSTANDING OF THE INSTRUCTIONS GIVEN AND THE NEED TO FOLLOW UP WITH OWN PCP (DR. GARRETT) AND PODIATRY (DR. JEWELL). ARM BANDS AND IV REMOVED, CANNULA TIP INTACT.
--- NOTE | 2018-08-10 11:40 | NUR ---
PT WHEELED TO THE PARKING LOT IN STABLE CONDITION. NO COMPLAINTS MADE. PT IS DISCHARGE HOME WITH PROP WORKER.
--- NOTE | 2018-08-10 14:58 | NUR ---
CHART REVIEW DONE.
== END 2018-08-10 11:40 | disposition home or self-care (01) | DRG 602 ==
LOC: MED 16:16 → MTU 16:52
PROVIDERS: ADMIT General Practice; ATTEND General Practice
PROC: 0HBRXZZ Excision of Toe Nail, External Approach (ICD-10-PCS; principal; 2018-08-08)
PROC: 0HBRXZZ Excision of Toe Nail, External Approach (ICD-10-PCS; 2018-08-08)
PROC: 0HBRXZZ Excision of Toe Nail, External Approach (ICD-10-PCS; 2018-08-08)
PROC: 0HBRXZZ Excision of Toe Nail, External Approach (ICD-10-PCS; 2018-08-08)
PROC: 0HBRXZZ Excision of Toe Nail, External Approach (ICD-10-PCS; 2018-08-08)
PROC: 0HBRXZZ Excision of Toe Nail, External Approach (ICD-10-PCS; 2018-08-08)
PROC: 0HBRXZZ Excision of Toe Nail, External Approach (ICD-10-PCS; 2018-08-08)
PROC: 0HBRXZZ Excision of Toe Nail, External Approach (ICD-10-PCS; 2018-08-08)
PROC: 0HBRXZZ Excision of Toe Nail, External Approach (ICD-10-PCS; 2018-08-08)
PROC: 0HBRXZZ Excision of Toe Nail, External Approach (ICD-10-PCS; 2018-08-08)
PROC: 3E0234Z Introduction of Serum, Toxoid and Vaccine into Muscle, Percutaneous Approach (ICD-10-PCS; 2018-08-08)
DX: L03.032 Cellulitis of left toe (principal); N17.0 Acute kidney failure with tubular necrosis; E87.1 Hypo-osmolality and hyponatremia; G40.909 Epilepsy, unspecified, not intractable, without status epilepticus; F32.9 Major depressive disorder, single episode, unspecified; N40.0 Benign prostatic hyperplasia without lower urinary tract symptoms; L60.0 Ingrowing nail; F03.90 Unspecified dementia, unspecified severity, without behavioral disturbance, psychotic disturbance, mood disturbance, and anxiety; K21.9 Gastro-esophageal reflux disease without esophagitis; E78.00 Pure hypercholesterolemia, unspecified; H40.9 Unspecified glaucoma; E78.5 Hyperlipidemia, unspecified; L60.3 Nail dystrophy; E83.51 Hypocalcemia; Z79.899 Other long term (current) drug therapy; Z85.828 Personal history of other malignant neoplasm of skin; I25.2 Old myocardial infarction; Z95.5 Presence of coronary angioplasty implant and graft; Z86.718 Personal history of other venous thrombosis and embolism; Z87.820 Personal history of traumatic brain injury; Z91.81 History of falling; Z23 Encounter for immunization
CPT/HCPCS: 36415; 71045; 73660; 80048; 80053; 80305; 81003; 83036; 83605; 83690; 83735; 83880; 84100; 84134; 84443; 84484; 85025; 85379; 85610; 85730; 87040; 87081; 87086; 90715; 93005; 99285; J2543; J7030; J7060; Q0092

== ENCOUNTER 2018-10-06 17:38 | Emergency (ER) | payer OTHER, BC ==
[~2018-10-06] VITALS: Ht 167.6 cm; Wt 72.1 kg
[~2018-10-06 17:38] MED LIST changes: +CYAN100T65 PO; +LACT10CA1 PO; -RANI-485 PO; +RANI-745 PO; +SULF-59 PO; -TICA90TA PO; -VITB12 PO
[2018-10-06 17:40] VITALS: BP 119/90
--- NOTE | 2018-10-06 18:20 | NUR ---
PT BIBA TO BED 3 AT THIS TIME.
--- NOTE | 2018-10-06 18:38 | NUR ---
Assumed patient care, nursing assessment completed.
[2018-10-06] MEDS ORDERED: MORPHINE SULFATE 4 MG/ML SYR IM ONE (18:50)
[2018-10-06] MEDS ORDERED: ONDANSETRON 4 MG ODT PO ONE (18:50)
--- NOTE | 2018-10-06 19:10 | NUR ---
IM/PO MEDS GIVEN- NADR AT THIS TIME
--- NOTE | 2018-10-06 19:40 | NUR ---
SEIZURE PRECAUTIONS IN PLACE. AT BEDSIDE. WILL CONTINUE TO MONITOR.
[2018-10-06 20:35] VITALS: BP 141/92
--- NOTE | 2018-10-06 20:35 | NUR ---
Patient discharged with v/s stable. Written and verbal after care instructions given and explained. Patient alert, oriented and verbalized understanding of instructions. Wheel Chair Assisted with to car. All questions addressed prior to discharge. ID band removed. Patient advised to follow up with PMD. Rx of NORCO given. Patient educated on indication of medication including possible reaction and side effects. Opportunity to ask questions provided and answered.
== END 2018-10-06 20:35 | disposition home or self-care (01) ==
LOC: MED 17:38
DX: S42.295A Other nondisplaced fracture of upper end of left humerus, initial encounter for closed fracture (principal); S49.91XA Unspecified injury of right shoulder and upper arm, initial encounter; Z85.828 Personal history of other malignant neoplasm of skin; W10.9XXA Fall (on) (from) unspecified stairs and steps, initial encounter; Y93.89 Activity, other specified; Y92.89 Other specified places as the place of occurrence of the external cause; Y99.8 Other external cause status
CPT/HCPCS: 29105; 73030; 96372; 99283; J2270; Q0162

== ENCOUNTER 2018-11-08 09:32 | Emergency (ER) | payer OTHER, BC ==
[~2018-11-08] VITALS: Ht 165.1 cm; Wt 73.0 kg
[2018-11-08 09:35] VITALS: BP 161/91
--- NOTE | 2018-11-08 09:46 | NUR ---
PATIENT WHEELCHAIR ASSISTED TO BED 8.
--- NOTE | 2018-11-08 09:50 | NUR ---
68/M BIB SISTER IN LAW FROM HOME. PT HAD 3 SEIZURE THIS MORNING. PT AAOX4, SPEECH CLEAR/DELAYED. PER SISTER IN LAW PT NOT AT BASELINE.MEDHX:SEIZURE, STENTS, CRANIOTOMY, HTN,FRACTURE LEFT SHOULDER. PATIENT STATES PAIN OF 0/10 AT THIS TIME. PATIENT POSITIONED FOR COMFORT; HOB ELEVATED; BEDRAILS UP X2; BED DOWN. ER MD MADE AWARE OF PT STATUS.
[2018-11-08] MEDS ORDERED: CLON0.5T PO (09:54)
[2018-11-08] MEDS ORDERED: ZONI100C5 PO (09:54)
[2018-11-08] MEDS ORDERED: OXCA600T2 PO (09:54)
[2018-11-08] MEDS ORDERED: OXCA300T PO (09:54)
[2018-11-08] MEDS ORDERED: ROSU5TAB PO (09:57)
[2018-11-08] MEDS ORDERED: TAMS0.4C96 PO (09:57)
[2018-11-08] MEDS ORDERED: PREG225C PO (09:57)
[2018-11-08] MEDS ORDERED: MEMA10TA PO (09:57)
[2018-11-08] MEDS ORDERED: CLOP75TA55 PO (09:57)
[2018-11-08] MEDS ORDERED: RIVA20TA PO (09:57)
[2018-11-08] MEDS ORDERED: PREG300C PO (09:57)
[2018-11-08] MEDS ORDERED: RISP0.5T3 PO (10:01)
[2018-11-08] MEDS ORDERED: VENL150C1 PO (10:01)
[2018-11-08] MEDS ORDERED: RANI-745 PO (10:01)
[2018-11-08] MEDS ORDERED: LEVO5TAB32 PO (10:01)
[2018-11-08] MEDS ORDERED: VITD1000 PO (10:01)
[2018-11-08] MEDS ORDERED: CYAN25006 PO (10:01)
[2018-11-08] MEDS ORDERED: [UNRECOGNIZED DRUG - CODE] PO (10:04)
[2018-11-08] MEDS ORDERED: ACET-2619 PO (10:04)
[2018-11-08] MEDS ORDERED: VITE200 PO (10:04)
[2018-11-08] MEDS ORDERED: LATA7.5D OP (10:04)
--- NOTE | 2018-11-08 10:46 | NUR ---
PT'S UNABLE TO PROVIDE URINE AT THIS TIME.
[2018-11-08 10:50] LABS: BASOPHILS # (AUTO) 0.1 K/uL (0.00-0.22); BASOPHILS % (AUTO) 1.1 % (0.0-2.0); EOSINOPHILS # (AUTO) 0.1 K/uL (0-0.4); EOSINOPHILS % (AUTO) 2.9 % (0.0-4.0); HEMATOCRIT 45.3 % (36-52); HEMOGLOBIN 15.5 g/dL (12.0-18.0); LYMPHOCYTES # (AUTO) 0.7 K/uL (2.0-11.5); LYMPHOCYTES % (AUTO) 13.7 % (20.5-51.1); MEAN CORPUSCULAR HEMOGLOBIN 30 pg (27-31); MEAN CORPUSCULAR HGB CONC 34 g/dL (33-37); MEAN CORPUSCULAR VOLUME 87.4 fL (80-94); MONOCYTES # (AUTO) 0.4 K/uL (0.8-1.0); MONOCYTES % (AUTO) 7.9 % (1.7-9.3); NEUTROPHILS # (AUTO) 3.7 K/uL (1.8-7.7); NEUTROPHILS % (AUTO) 74.4 % (42.2-75.2); PLATELET COUNT (AUTO) 221 K/uL (140-450); RED BLOOD CELL COUNT(AUTO) 5.18 MIL/uL (4.20-6.10); RED CELL DISTRIBUTION WIDTH 13.4 % (11.6-13.7)
--- NOTE | 2018-11-08 10:59 | NUR ---
X RAY AT BEDSIDE.
[2018-11-08 11:28] LABS: ALBUMIN 3.9 g/dL (3.4-5.0); ANION GAP 18.2 (8-16); CARBON DIOXIDE 22.6 mmol/L (21-32); MAGNESIUM 2.1 mg/dL (1.8-2.4); POTASSIUM 3.8 mmol/L (3.5-5.1); TOTAL BILIRUBIN 0.3 mg/dL (0.0-1.0)
[2018-11-08] MEDS ORDERED: NACL 0.9% 500 ML IV ONE (12:40)
--- NOTE | 2018-11-08 13:12 | NUR ---
Keith paniagua in ED - 11/08/18 at 1316 by MED1 PT TAKEN TO CT VIA [facility], ACCOMPANIED BY SAS DEVELOPER ANALYST.
[2018-11-08 13:16] LABS: APPEARANCE,URINE CLEAR (CLEAR); BILIRUBIN,URINE NEGATIVE (NEGATIVE); BLOOD, URINE NEGATIVE (NEGATIVE); COLOR,URINE YELLOW (YELLOW); LEUKOCYTE ESTERASE ,URINE NEGATIVE (NEGATIVE); NITRITE, URINE NEGATIVE (NEGATIVE); PH,URINE 6.5 (5.0-9.0); UGLUCOSE NEGATIVE (NEGATIVE)
--- NOTE | 2018-11-08 13:16 | NUR ---
PT TAKEN TO CT VIA GURMATI, ACCOMPANIED BY SERAFIN CERDA AND CARLOS ALBERTO EMT.
--- NOTE | 2018-11-08 14:09 | NUR ---
LAB AT BEDSIDE
[2018-11-08 14:32] LABS: POTASSIUM 4.2 mmol/L (3.5-5.1)
[2018-11-08 14:33] LABS: ANION GAP 13.2 (8-16)
--- NOTE | 2018-11-08 15:28 | NUR ---
SPOKE WITH FAMILY TO WASTEWATER TREATMENT PLANT OPERATOR PT. ANI SHOULD BE ON THE WAY.
[2018-11-08 15:33] VITALS: BP 148/92
--- NOTE | 2018-11-08 15:33 | NUR ---
Patient discharged with v/s stable. Written and verbal after care instructions given and explained. Patient verbalized understanding. Ambulatory with ASSISTANCE. All questions addressed prior to discharge. Advised to follow up with PMD.
== END 2018-11-08 15:33 | disposition home or self-care (01) ==
LOC: MED 09:32
DX: G40.909 Epilepsy, unspecified, not intractable, without status epilepticus (principal); F03.90 Unspecified dementia, unspecified severity, without behavioral disturbance, psychotic disturbance, mood disturbance, and anxiety; Z79.1 Long term (current) use of non-steroidal anti-inflammatories (NSAID); Z85.828 Personal history of other malignant neoplasm of skin; Z79.899 Other long term (current) drug therapy; Z79.2 Long term (current) use of antibiotics; Z88.2 Allergy status to sulfonamides
CPT/HCPCS: 36415; 70450; 71045; 80048; 80053; 81003; 82948; 83735; 85025; 99284; Q0092; C1758; J7030

== ENCOUNTER 2018-11-21 16:58 | Emergency (ER) | payer OTHER, BC ==
[~2018-11-21] VITALS: Ht 165.1 cm; Wt 72.6 kg
[~2018-11-21 16:58] MED LIST changes: +CLOP75TA55 PO; +CYAN25006 PO; +LATA7.5D OP; +MEMA10TA PO; +OXCA600T2 PO; +PREG300C PO; +RIVA20TA PO; +TAMS0.4C96 PO; +VENL150C1 PO; +[UNRECOGNIZED DRUG - CODE] PO
[2018-11-21 17:09] VITALS: BP 118/76
--- NOTE | 2018-11-21 17:15 | NUR ---
68 Y MALE BIB WITH C/O BLEEDING IN URINE, STATED INSERTED TEMPLE CATHETER 3 DAYS AGO WHILE AT UROLOGIST, LIGHT RED COLORED URINE NOTED. DENIES PAIN. NO OTHER SYMPTOMS. VSS AT THIS TIME. AT BEDSIDE. BED IS DOWN, LOCKED, BED RAIL X 1, ERMD NOTIFIED. HX OF HEART DISEASE, SEIZURE, KIDNEY STONE, NEURO SURGERY AND HEART SURGERY, FRATURE OF LEFT SHOULDER LAST MONTH.
--- NOTE | 2018-11-21 17:33 | NUR ---
DR SEGURA AT BEDSIDE
[2018-11-21] MEDS ORDERED: LEVOFLOXACIN 500 MG TAB PO ONE (17:40)
--- NOTE | 2018-11-21 17:54 | NUR ---
XRAY AT BEDSIDE
[2018-11-21 18:14] LABS: APPEARANCE,URINE HAZY (CLEAR); BILIRUBIN,URINE NEGATIVE (NEGATIVE); BLOOD, URINE 3+ (NEGATIVE); COLOR,URINE ORANGE (YELLOW); LEUKOCYTE ESTERASE ,URINE 3+ (NEGATIVE); NITRITE, URINE NEGATIVE (NEGATIVE); PH,URINE 6.5 (5.0-9.0); UGLUCOSE NEGATIVE (NEGATIVE)
[2018-11-21 18:22] LABS: RBC,URINE TOO NUMEROUS TO COUN /HPF (0-5); WBC,URINE TOO MANY TO COUNT /HPF (0-5)
--- NOTE | 2018-11-21 19:00 | NUR ---
VSS AT THIS TIME, PT IN BED, AT BEDSIDE
[2018-11-21 19:38] VITALS: BP 118/74
--- NOTE | 2018-11-21 19:38 | NUR ---
Patient discharged with v/s stable. Written and verbal after care instructions given and explained. Patient alert, oriented and verbalized understanding of instructions. Ambulatory with steady gait. All questions addressed prior to discharge. ID band removed. Patient advised to follow up with PMD. Rx of LEVAQUIN given. Patient educated on indication of medication including possible reaction and side effects. Opportunity to ask questions provided and answered.
== END 2018-11-21 19:38 | disposition home or self-care (01) ==
LOC: MED 16:58
DX: N39.0 Urinary tract infection, site not specified (principal); F03.90 Unspecified dementia, unspecified severity, without behavioral disturbance, psychotic disturbance, mood disturbance, and anxiety; Z85.828 Personal history of other malignant neoplasm of skin; Z79.1 Long term (current) use of non-steroidal anti-inflammatories (NSAID); Z79.2 Long term (current) use of antibiotics; Z79.01 Long term (current) use of anticoagulants; Z79.899 Other long term (current) drug therapy; Z88.2 Allergy status to sulfonamides
CPT/HCPCS: 74018; 81001; 87086; 99284; Q0092; 87186

== ENCOUNTER 2018-12-05 13:25 | Emergency (ER) | payer OTHER, BC ==
[~2018-12-05] VITALS: Ht 167.6 cm; Wt 66.2 kg
[2018-12-05 13:32] VITALS: BP 120/80
--- NOTE | 2018-12-05 13:32 | NUR ---
68 Y MALE BIB SISTER C/O UNWITNESSED SEIZURE, PER SISTER PT WAS SWEATING AND INCOTINENT URINATION EVERY MORINING X3 DAYS, AND PT HAD SAME SYMPTOMS FOR PREVIOUS SEIZURE. DENIES ANY INJURY, DENIES SOB, CP, N/V/D. NEURO INTACT. AA0X4. VSS AT THIS TIME. BED IS DOWN, LOCKED, BED RAIL X 1, ERMD TO SEE PT. HX- SEIZURE, KIDNEY STONE, HEART STENT, BRAIN SURGERY RX- SEE MED RECON
--- NOTE | 2018-12-05 13:34 | NUR ---
DR SKELTON BEDSIDE
--- NOTE | 2018-12-05 13:35 | NUR ---
SEIZURE PRECAUTIONS IN PLACE
--- NOTE | 2018-12-05 13:38 | NUR ---
PT PLACED ON MONITOR
--- NOTE | 2018-12-05 13:46 | NUR ---
LAB AT BEDSIDE
[2018-12-05 14:01] LABS: BASOPHILS # (AUTO) 0.1 K/uL (0.00-0.22); BASOPHILS % (AUTO) 1.3 % (0.0-2.0); EOSINOPHILS # (AUTO) 0.1 K/uL (0-0.4); EOSINOPHILS % (AUTO) 3.1 % (0.0-4.0); HEMOGLOBIN 15.7 g/dL (12.0-18.0); LYMPHOCYTES # (AUTO) 0.8 K/uL (2.0-11.5); LYMPHOCYTES % (AUTO) 17.8 % (20.5-51.1); MEAN CORPUSCULAR HEMOGLOBIN 30 pg (27-31); MEAN CORPUSCULAR HGB CONC 34 g/dL (33-37); MEAN CORPUSCULAR VOLUME 86.9 fL (80-94); MONOCYTES # (AUTO) 0.3 K/uL (0.8-1.0); MONOCYTES % (AUTO) 6.2 % (1.7-9.3); NEUTROPHILS # (AUTO) 3.2 K/uL (1.8-7.7); NEUTROPHILS % (AUTO) 71.6 % (42.2-75.2); PLATELET COUNT (AUTO) 214 K/uL (140-450); RED BLOOD CELL COUNT(AUTO) 5.29 MIL/uL (4.20-6.10); RED CELL DISTRIBUTION WIDTH 13.5 % (11.6-13.7); WHITE BLOOD COUNT (AUTO) 4.5 K/uL (4.8-10.8)
[2018-12-05 14:18] LABS: ALBUMIN 3.5 g/dL (3.4-5.0); CARBON DIOXIDE 24.5 mmol/L (21-32); CREATININE 1.1 mg/dL (0.7-1.3); POTASSIUM 3.5 mmol/L (3.5-5.1); TOTAL BILIRUBIN 0.4 mg/dL (0.0-1.0)
[2018-12-05] MEDS ORDERED: CEPH250C16 PO (14:41)
--- NOTE | 2018-12-05 14:56 | NUR ---
VSS AT THIS TIME, AA0X4, PT SITTING IN BED, SISTER BEDSIDE
[2018-12-05 15:07] LABS: APPEARANCE,URINE CLEAR (CLEAR); BILIRUBIN,URINE NEGATIVE (NEGATIVE); BLOOD, URINE NEGATIVE (NEGATIVE); COLOR,URINE YELLOW (YELLOW); LEUKOCYTE ESTERASE ,URINE NEGATIVE (NEGATIVE); NITRITE, URINE NEGATIVE (NEGATIVE); PH,URINE 7.5 (5.0-9.0); UGLUCOSE NEGATIVE (NEGATIVE)
[2018-12-05 15:36] VITALS: BP 128/79
== END 2018-12-05 15:34 | disposition home or self-care (01) ==
LOC: MED 13:25
DX: N39.44 Nocturnal enuresis (principal); Z85.828 Personal history of other malignant neoplasm of skin; F03.90 Unspecified dementia, unspecified severity, without behavioral disturbance, psychotic disturbance, mood disturbance, and anxiety; I10 Essential (primary) hypertension; Z79.899 Other long term (current) drug therapy
CPT/HCPCS: 36415; 80053; 81003; 85025; 99283

== ENCOUNTER 2020-03-14 22:53 | Emergency (ER) | payer OTHER, BC ==
[~2020-03-14] VITALS: Ht 154.9 cm; Wt 59.9 kg
[~2020-03-14 22:53] MED LIST changes: +CEPH250C16 PO; -CYAN25006 PO; -RIVA20TA PO; -TAMS0.4C96 PO; -VENL150C1 PO; -XALOS OP; +ZONI100C22 PO; -ZONI100C5 PO; -[UNRECOGNIZED DRUG - CODE] PO; -[UNRECOGNIZED DRUG - CODE] PO
[2020-03-14 23:14] VITALS: BP 124/72
--- NOTE | 2020-03-14 23:54 | NUR ---
PT IN BED AWAKE AND HE IS HERE FOR ACCIDETALLY BITE HER LT LOWER LIP. BLEEDING CONTROLLED. DR JOSE AT THE BEDSIDE.
--- NOTE | 2020-03-15 | NUR ---
MOUTH CARE DONE AND GAUZE APPLIED TO HER LIP. NO ACTIVE BLEEDING NOTED. PT FOR D/C PER DR JOSE ORDER
[2020-03-15 00:08] VITALS: BP 124/72
--- NOTE | 2020-03-15 00:08 | NUR ---
Patient discharged with v/s stable. Written and verbal after care instructions given and explained. Currently patient alert, oriented and verbalized understanding of instructions. at bedside and also able to verbalize understanding of d/c instructions. signed d/c paperwork to pt having Dementia Dx. Ambulatory with steady gait. All questions addressed prior to discharge. ID band removed. Opportunity to ask questions provided and answered.
== END 2020-03-15 00:08 | disposition home or self-care (01) ==
LOC: MED 22:53
DX: S01.511A Laceration without foreign body of lip, initial encounter (principal); F03.90 Unspecified dementia, unspecified severity, without behavioral disturbance, psychotic disturbance, mood disturbance, and anxiety; I10 Essential (primary) hypertension; I51.89 Other ill-defined heart diseases; R56.9 Unspecified convulsions; Z85.9 Personal history of malignant neoplasm, unspecified; Z85.841 Personal history of malignant neoplasm of brain; Z79.899 Other long term (current) drug therapy; X58.XXXA Exposure to other specified factors, initial encounter; Y93.89 Activity, other specified; Y92.89 Other specified places as the place of occurrence of the external cause; Y99.8 Other external cause status
CPT/HCPCS: 99282

== ENCOUNTER 2020-05-01 14:00 | Emergency (ER) | payer OTHER, BC ==
[~2020-05-01] VITALS: Ht 165.1 cm; Wt 63.0 kg
[~2020-05-01 14:00] MED LIST changes: -CYAN100T65 PO; +VITB12 PO
[2020-05-01 14:07] VITALS: BP 112/66
--- NOTE | 2020-05-01 14:15 | NUR ---
BIB C/O LEFT HAND PAIN & SWELLING X TODAY AND C/O LEFT UPPER ARM LAC WOUND S/P LOSS OF BALANCE & FALL X 4 DAYS. LAST SEIZURE 04/09/20 MED HX: HEART ATTACK & STENT, DEMENTIA, SEIZURE, BLOOD CLOT BOTH LEGS, LEFT SHOULDER FRACTURE
--- NOTE | 2020-05-01 14:19 | NUR ---
Patient being evaluated by DR PRITCHARD at bedside.
--- NOTE | 2020-05-01 14:29 | NUR ---
PT SKIN TEAR CLEANED AND IRRIGATED WITH NORMAL SALINE AND 4X4 GUAZE PADS, DERMABOND APPLIED ON SKIN TEAR PER ERMD ORDERS, ERMD NOTIFIED
--- NOTE | 2020-05-01 14:37 | NUR ---
U/S TECH AT BEDSIDE
--- NOTE | 2020-05-01 15:09 | NUR ---
XRAY AT BEDSIDE
[2020-05-01] MEDS: cephALEXin 500 MG CAP PO ONE (15:56)
[2020-05-01 16:10] VITALS: BP 130/84
--- NOTE | 2020-05-01 16:10 | NUR ---
Patient discharged with v/s stable. Written and verbal after care instructions given and explained. Patient alert, oriented and verbalized understanding of instructions. Wheel Chair Assisted with to car. at side. All questions addressed prior to discharge. ID band removed. Patient advised to follow up with PMD. Rx of Keflex given. Patient educated on indication of medication including possible reaction and side effects. Opportunity to ask questions provided and answered.
--- NOTE | 2020-05-01 17:58 | NUR ---
Cipro 500mg BID x 7 days called to [facility] at [address] [place] [address]. Pt made aware of prescription.
== END 2020-05-01 16:10 | disposition home or self-care (01) ==
LOC: MED 14:00
DX: S50.312D Abrasion of left elbow, subsequent encounter (principal); F03.90 Unspecified dementia, unspecified severity, without behavioral disturbance, psychotic disturbance, mood disturbance, and anxiety; I51.9 Heart disease, unspecified; X58.XXXD Exposure to other specified factors, subsequent encounter
CPT/HCPCS: 73130; 93971; 99284; Q0092

== ENCOUNTER 2020-06-16 23:50 | Emergency (ER) | payer OTHER, BC ==
[~2020-06-16] VITALS: Ht 170.2 cm; Wt 63.0 kg
[2020-06-17 00:04] VITALS: BP 127/83
--- NOTE | 2020-06-17 00:10 | NUR ---
PT TAKEN TO BED 11 VIA WHEELCHAIR.
--- NOTE | 2020-06-17 00:15 | NUR ---
ERMD AT BEDSIDE. PERFORMING ULTRASOUND ON BLADDER. ABOUT 100 MLS VISIBLE.
--- NOTE | 2020-06-17 00:15 | NUR ---
70 YO M BIB WITH C/C OF URINARY RETENTION PER STATEMENT. STATED HE USUALLY URINATES 5XS A DAY, URINATING 2XS A DAY FOR THE PAST 4DAYS. NO VISIBLE DISTENTION OBSERVED. NO DISTENTION PALPATED. PT DENIED PAIN. STATED PT HAS HAD A CATH IN PAST ABOUT 1 YR AGO. BED LOCKED IN LOWEST POSITION, SIDE RAILS X2. AT BEDSIDE. SEIZURE PADS IN PLACE. 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
[2020-06-17 00:54] VITALS: BP 127/83
--- NOTE | 2020-06-17 00:54 | NUR ---
Patient discharged with v/s stable. Written and verbal after care instructions given and explained. Patient verbalized understanding. Wheel Chair Assisted with to car. All questions addressed prior to discharge. Advised to follow up with PMD.
== END 2020-06-17 00:54 | disposition home or self-care (01) ==
LOC: MED 23:50
DX: R39.12 Poor urinary stream (principal); E86.0 Dehydration; N40.0 Benign prostatic hyperplasia without lower urinary tract symptoms; I51.89 Other ill-defined heart diseases; F03.90 Unspecified dementia, unspecified severity, without behavioral disturbance, psychotic disturbance, mood disturbance, and anxiety; Z95.5 Presence of coronary angioplasty implant and graft; Z85.841 Personal history of malignant neoplasm of brain
CPT/HCPCS: 99281

== ENCOUNTER 2020-08-18 21:07 | Inpatient (IN) | payer OTHER, BC, SELFPAY ==
[~2020-08-18] VITALS: Ht 167.6 cm; Wt 65.3 kg
--- NOTE | 2020-08-18 21:09 | NUR ---
PT BIBA TO BED 06.
[2020-08-18 21:14] VITALS: BP 145/88
--- NOTE | 2020-08-18 21:21 | NUR ---
ERMD AT BEDSIDE EVALUATING PT
--- NOTE | 2020-08-18 21:28 | NUR ---
PT TAKEN TO CT SCAN VIA [facility]
--- NOTE | 2020-08-18 21:29 | NUR ---
70 Y/O MALE BIBA PER EMS, PT HAD 3 GRAND MAL SEIZURES THIS AM AND WAS DISCHARGED FROM [facility] WITH A UTI. CALLED , STATES HE IS NOT AT HIS BASELINE. PT IS MUMBLING, CONFUSED. MEDHX: SEIZURES, HEART ATTACK, DEMENTIA, BLOOD CLOTS ALLERGIES: PE Addendum: 08/18/20 at 2134 by [email or web address] ALLERGIES: PENICILLINS, CODEINE, SULFA DRUGS
--- NOTE | 2020-08-18 21:34 | NUR ---
CALLED JEREMY, UPDATED ON PT STATUS [phone]
--- NOTE | 2020-08-18 21:35 | NUR ---
PER , CONCERNED WITH PT'S BILAT DVT. REQUESTING FOR AN ULTRASOUND TO BE DONE. DR MORGAN MADE AWARE.
--- NOTE | 2020-08-18 21:53 | NUR ---
LAB AT BEDSIDE
[2020-08-18 22:13] LABS: BASOPHILS % (AUTO) 0.5 % (0.0-2.0); EOSINOPHILS % (AUTO) 0.2 % (0.0-4.0); HEMOGLOBIN 14.5 g/dL (12.0-18.0); LYMPHOCYTES # (AUTO) 0.5 K/uL (2.0-11.5); LYMPHOCYTES % (AUTO) 9.5 % (20.5-51.1); MEAN CORPUSCULAR HEMOGLOBIN 32 pg (27-31); MEAN CORPUSCULAR HGB CONC 35 g/dL (33-37); MEAN CORPUSCULAR VOLUME 91.5 fL (80-94); MONOCYTES # (AUTO) 0.4 K/uL (0.8-1.0); MONOCYTES % (AUTO) 6.8 % (1.7-9.3); NEUTROPHILS # (AUTO) 4.5 K/uL (1.8-7.7); PLATELET COUNT (AUTO) 163 K/uL (140-450); RED CELL DISTRIBUTION WIDTH 13.1 % (11.6-13.7); WHITE BLOOD COUNT (AUTO) 5.4 K/uL (4.8-10.8)
[2020-08-18 22:25] LABS: APPEARANCE,URINE CLEAR (CLEAR); BILIRUBIN,URINE NEGATIVE (NEGATIVE); BLOOD, URINE 2+ (NEGATIVE); COLOR,URINE YELLOW (YELLOW); LEUKOCYTE ESTERASE ,URINE NEGATIVE (NEGATIVE); NITRITE, URINE NEGATIVE (NEGATIVE); UGLUCOSE NEGATIVE (NEGATIVE)
[2020-08-18 22:32] LABS: ALBUMIN 3.9 g/dL (3.4-5.0); ASPARTATE AMINOTRANSFERASE 35 U/L (15-37); CHLORIDE 96 mmol/L (98-107); GFR ARICAN-AMERICAN 96 mL/min (>90); GLUCOSE 115 mg/dL (74-106); POTASSIUM 3.4 mmol/L (3.5-5.1); SODIUM SERUM 130 mmol/L (136-145); TOTAL BILIRUBIN 0.4 mg/dL (0.0-1.0); UREA NITROGEN, BLOOD 15 mg/dL (7-18)
[2020-08-18 22:37] LABS: BARBITURATE, URINE NEGATIVE ng/ml (NEG <=200); BENZODIAZEPINE, URINE NEGATIVE ng/mL (NEG <=200); CANNABINOID, URINE NEGATIVE ng/mL (NEG <=50); COCAINE, URINE NEGATIVE ng/mL (NEG <=300); OPIATE, URINE NEGATIVE ng/mL (NEG <=2000); PHENCYCLIDINE SCREEN,URINE NEGATIVE ng/mL (NEG <=25)
[2020-08-18 22:40] LABS: WBC,URINE NONE SEEN /HPF (0-5)
[2020-08-18 22:41] LABS: ANION GAP 12.6 (8-16); CARBON DIOXIDE 24.8 mmol/L (21-32)
[2020-08-18 22:45] LABS: VALPROIC ACID < 3 ug/ml (50-100)
[2020-08-18 22:56] LABS: PHENYTOIN (DILANTIN) < 0.5 ug/ml (10.0-20.0)
--- NOTE | 2020-08-18 23:02 | NUR ---
JERAMIE SWAB COLLECTED AND HANDED TO MANAGER RISK MANAGEMENT
--- NOTE | 2020-08-18 23:15 | NUR ---
RECEIVED CALL FROM PT'S , UPDATED ON PT STATUS, ALL QUESTIONS AND CONCERNS ANSWERED AT THIS TIME
[2020-08-18] MEDS ORDERED: PSYL0.529 PO (23:52)
[2020-08-18] MEDS ORDERED: VITA-204 PO (23:52)
[2020-08-18] MEDS ORDERED: VITD400 PO (23:52)
[2020-08-18] MEDS ORDERED: RIVA20TA PO (23:52)
[2020-08-18] MEDS ORDERED: OXCA300S5 PO (23:52)
[2020-08-18] MEDS ORDERED: LEVO5TAB32 PO (23:52)
[2020-08-18] MEDS ORDERED: PREG225C PO (23:52)
--- NOTE | 2020-08-19 01:20 | NUR ---
PT HAS EYES CLOSED, RESPIRATIONS EVEN AND UNLABORED, CHEST RISE IS SYMMETRICAL. WILL CONTINUE TO MONITOR.
[2020-08-19] MEDS ORDERED: LORazepam 2 MG/ML VIAL IVP PRN (01:39)
[2020-08-19] MEDS: NACL 0.9% 1,000 ML IV SCH ×2 (03:10→17:56)
--- NOTE | 2020-08-19 04:02 | NUR ---
PT HAS EYES CLOSED, RESPIRATIONS EVEN AND UNLABORED, CHEST RISE IS SYMMETRICAL. WILL CONTINUE TO MONITOR.
--- NOTE | 2020-08-19 06:53 | NUR ---
S/W JEREMY, WHO STATED PT HAS BEEN COMPLAINING ABOUT BILATERAL LEG PAIN AND HAS HAD PREVIOUS DVTS; THIS BEHAVIOR HAPPENED IN THE PAST AND PATIENT WAS THEN DIAGNOSED WITH DVT. PER JEREMY HER CONCERN IS RECURRENT DVT. ALL THIS INFORMATION RELATED TO PRIMARY RN.
--- NOTE | 2020-08-19 07:01 | NUR ---
PATIENT HAS BEEN SCREENED AND CATEGORIZED LOW NUTRITION RISK. PATIENT WILL BE SEEN WITHIN 7 DAYS OF ADMISSION. 08/27/20 ABHIJEET SHORT MS, RDN
--- NOTE | 2020-08-19 07:21 | NUR ---
REPORT GIVEN TO EULA LYONS FOR CONTINUITY OF CARE
[2020-08-19] MEDS ORDERED: ZOLPIDEM 5 MG TAB PO PRN (08:45)
[2020-08-19] MEDS ORDERED: HYDROcodone/APAP 7.5/325 MG 1 TAB PO PRN (08:45)
[2020-08-19] MEDS ORDERED: ONDANSETRON 4 MG/2 ML VIAL IM/IVP PRN (08:45)
[2020-08-19] MEDS ORDERED: POTASSIUM CHLORIDE 10 MEQ TABER PO PRN (08:45)
[2020-08-19] MEDS ORDERED: ACETAMINOPHEN 325 MG TAB PO PRN (08:45)
[2020-08-19] MEDS ORDERED: guaiFENesin DM 200/20 MG-10 ML 10 ML UDC PO PRN (08:45)
[2020-08-19] MEDS ORDERED: DOCUSATE SODIUM 100 MG GELCAP PO PRN (08:45)
[2020-08-19] MEDS ORDERED: LEVOCETIRIZINE DIHYDROCHLORIDE PO SCH (09:00)
[2020-08-19] MEDS ORDERED: OXcarbazepine 150 MG TAB PO SCH ×2 (09:00→21:00)
[2020-08-19] MEDS ORDERED: levETIRAcetam 100 MG/ML VIAL IV ONE ×2 (09:43→22:48)
[2020-08-19] MEDS: clonazePAM 0.5 MG TAB PO SCH ×2 (09:52→22:56)
[2020-08-19] MEDS: CLOPIDOGREL 75 MG TAB PO SCH (09:52)
[2020-08-19] MEDS: PANTOPRAZOLE 40 MG TABEC PO SCH (09:52)
[2020-08-19] MEDS: risperiDONE 1 MG TAB PO SCH (09:52)
[2020-08-19] MEDS: levETIRAcetam 500 MG in NACL 0.9% 100 ML IV SCH ×2 (09:53→23:02)
[2020-08-19] MEDS: PREGABALIN 50 MG CAP PO SCH ×2 (10:27→23:01)
[2020-08-19 11:09] LABS: PROTHROMBIN TIME 12.8 secs (10.8-13.4)
[2020-08-19 11:23] LABS: FREE T4 (FREE THYROXINE) 0.72 ng/dL (0.76-1.46); MAGNESIUM 2.1 mg/dL (1.8-2.4); PHOSPHORUS 2.7 mg/dL (2.5-4.9); THYROID STIMULATING HORMONE 4.68 uIU/mL (0.34-3.74)
[2020-08-19 11:42] LABS: CHOL/HDL RATIO 1.6 (1-4.5)
--- NOTE | 2020-08-19 15:34 | NUR ---
S/W , JAMEL UPDATED JAMEL ON PTS STATUS. ALSO WAS ABLE TO HAVE PT SPEAK TO JAMEL VIA PHONE; JAMEL STATES SOME RETURN TO COGNITIVE FUNCTION NOTED. PT RESTING COMFORTABLY. VSS, IN NAD, WILL CTM.
--- NOTE | 2020-08-19 15:43 | NUR ---
FAMILY CONTACT INFO JAMEL () [phone]
--- NOTE | 2020-08-19 17:45 | NUR ---
Patient will be admitted to care of [facility]. Admited to TELEMETRY. Will go to room 124-B. Belongings list completed. Report to SERENA ELLISON. ALL QUESTIONS ANSWERED, ENDORSED PT IN STABLE CONDITION, IN NAD, VSS. PTS JAMEL IN AGREEMENT WITH ADMISSION. BELONGINGS TRANSFERRED WITH PT.
--- NOTE | 2020-08-19 17:55 | NUR ---
RECEIVED PATIENT FROM ED NURSE. PATIENT ADMITTED FOR SEIZURE AND ALOC. PATIENT AWAKE AND ALERT, EYE OPENING AND TRACKING. PATIENT ABLE TO RESPOND TO SIMPLE QUESTIONS WITH CLEAR SLOW SPEECH. RESP EVEN AND UNLABORED ON ROOM AIR. DENIED OF PAIN AT THIS TIME. RFA 22G INFUSING NS 60ML/HR. BRUISING NOTED TO ARMS AND LEGS, WITH REDNESS NOTED TO BUTTOCKS. SKIN INTACT. SEIZURE PRECAUTION IN PLACE. MRSA COLLECTED AND SENT TO LAB. HOB ELEVATED. SAFETY MEASURES IN PLACE. CALL LIGHT WITHIN REACH. WILL CONTINUE TO MONITOR.
[2020-08-19 19:02] LABS: BASOPHILS % (AUTO) 0.4 % (0.0-2.0); EOSINOPHILS # (AUTO) 0.1 K/uL (0-0.4); EOSINOPHILS % (AUTO) 1.5 % (0.0-4.0); HEMATOCRIT 40.7 % (36-52); LYMPHOCYTES # (AUTO) 0.9 K/uL (2.0-11.5); LYMPHOCYTES % (AUTO) 18.3 % (20.5-51.1); MEAN CORPUSCULAR HEMOGLOBIN 32 pg (27-31); MEAN CORPUSCULAR HGB CONC 34 g/dL (33-37); MEAN CORPUSCULAR VOLUME 91.6 fL (80-94); MONOCYTES # (AUTO) 0.4 K/uL (0.8-1.0); MONOCYTES % (AUTO) 7.5 % (1.7-9.3); NEUTROPHILS # (AUTO) 3.6 K/uL (1.8-7.7); NEUTROPHILS % (AUTO) 72.3 % (42.2-75.2); PLATELET COUNT (AUTO) 165 K/uL (140-450); RED BLOOD CELL COUNT(AUTO) 4.44 MIL/uL (4.20-6.10); RED CELL DISTRIBUTION WIDTH 13.5 % (11.6-13.7)
[2020-08-19 19:08] LABS: ANION GAP 15.8 (8-16); CARBON DIOXIDE 22.6 mmol/L (21-32); CREATININE 0.7 mg/dL (0.6-1.3); POTASSIUM 3.4 mmol/L (3.5-5.1)
--- NOTE | 2020-08-19 19:45 | NUR ---
ENDORSED PATIENT TO NIGHT NURSE. PATIENT IN STABLE CONDITION.
[2020-08-19] MEDS: TAMSULOSIN 0.4 MG CAP PO SCH (22:55)
[2020-08-19] MEDS: MEMANTINE 10 MG TAB PO SCH (22:55)
[2020-08-20] MEDS ORDERED: PNEUMOCOCCAL VACCINE 23 MCG/0.5 ML VIAL IMVAC SCH (05:05)
[2020-08-20 06:10] LABS: BASOPHILS % (AUTO) 0.3 % (0.0-2.0); EOSINOPHILS % (AUTO) 0.1 % (0.0-4.0); HEMATOCRIT 42.8 % (36-52); HEMOGLOBIN 14.5 g/dL (12.0-18.0); LYMPHOCYTES # (AUTO) 0.6 K/uL (2.0-11.5); MEAN CORPUSCULAR HEMOGLOBIN 31 pg (27-31); MEAN CORPUSCULAR HGB CONC 34 g/dL (33-37); MEAN CORPUSCULAR VOLUME 92.6 fL (80-94); MONOCYTES # (AUTO) 0.5 K/uL (0.8-1.0); MONOCYTES % (AUTO) 6.7 % (1.7-9.3); NEUTROPHILS # (AUTO) 5.8 K/uL (1.8-7.7); PLATELET COUNT (AUTO) 182 K/uL (140-450); RED BLOOD CELL COUNT(AUTO) 4.62 MIL/uL (4.20-6.10); RED CELL DISTRIBUTION WIDTH 13.2 % (11.6-13.7); WHITE BLOOD COUNT (AUTO) 6.8 K/uL (4.8-10.8)
[2020-08-20 06:36] LABS: ANION GAP 15.1 (8-16); CARBON DIOXIDE 22.4 mmol/L (21-32); CREATININE 0.9 mg/dL (0.6-1.3); POTASSIUM 3.5 mmol/L (3.5-5.1)
[2020-08-20 06:40] LABS: LYMPHOCYTES % (AUTO) 8.2 % (20.5-51.1); NEUTROPHILS % (AUTO) 84.7 % (42.2-75.2)
--- NOTE | 2020-08-20 07:25 | NUR ---
RECEIVED PATIENT FROM NIGHT NURSE. PATIENT IN BED SLEEPING, CHEST NOTED RISING. RESP EVEN AND UNLABORED ON ROOM AIR. NO NOTED ACUTE S/S DISTRESS. RFA 22G INFUSING NS 60ML/HR. HOB ELEVATED. SAFETY MEASURES IN PLACE. CALL LIGHT WITHIN REACH. WILL CONTINUE TO MONITOR.
[2020-08-20 08:00] VITALS: BP 128/78
[2020-08-20 08:06] LABS: T4 (THYROXINE) 4.8 ug/dL (4.5-12.0)
[2020-08-20] MEDS ORDERED: OXcarbazepine 150 MG TAB PO SCH (09:00)
[2020-08-20] MEDS: PANTOPRAZOLE 40 MG TABEC PO SCH (09:46)
[2020-08-20] MEDS: levETIRAcetam 500 MG in NACL 0.9% 100 ML IV SCH ×2 (09:46→20:34)
[2020-08-20] MEDS: risperiDONE 1 MG TAB PO SCH (09:46)
[2020-08-20] MEDS: PREGABALIN 50 MG CAP PO SCH ×2 (09:47→20:31)
[2020-08-20] MEDS: CLOPIDOGREL 75 MG TAB PO SCH (09:47)
[2020-08-20] MEDS: clonazePAM 0.5 MG TAB PO SCH ×2 (09:48→20:31)
[2020-08-20] MEDS: NACL 0.9% 1,000 ML IV SCH (09:50)
--- NOTE | 2020-08-20 09:55 | NUR ---
PATIENT IN BED AWAKE AND ALERT, ORIENTED X3. EYE OPENING SPONTANEOUS. RESP EVEN AND UNLABORED ON ROOM AIR. DENIED OF PAIN OR SOB. PATIENT SLEPT THROUGH THE NIGHT. NO REPORTED EPISODES OF SEIZURES. SEIZURE PRECAUTION IN PLACE. RFA 22G INFUSING NS 60ML/HR. MORNING ROUTINE MEDICATIONS GIVEN. PATIENT TOLERATED WELL. FLUIDS GIVEN. HOB ELEVATED. SAFETY MEASURES IN PLACE. PATIENT ABLE TO MAKE NEEDS KNOWN. CALL LIGHT WITHIN REACH. WILL CONTINUE TO MONITOR.
[2020-08-20 12:00] VITALS: BP 134/76
--- NOTE | 2020-08-20 13:15 | NUR ---
SPOKE TO , OFELIA ABOUT PATIENT BASELINE AT HOME. PATIENT MORE RESPONSIVE, TALKATIVE AND ASKING FOR FOOD MORE OFTEN. SPOKE TO PATIENT OVER THE PHONE AND STATED HE IS NOT IN HIS NORMAL BASELINE. PATIENT IS RESPONSIVE WITH SLOWER SPEECH BUT CLEAR. NO NOTED DISTRESS AT THIS TIME. DENIED OF PAIN. ABLE TO MAKE NEEDS KNOWN. CALL LIGHT WITHIN REACH. WILL CONTINUE TO MONITOR.
--- NOTE | 2020-08-20 13:15 | NUR ---
DC PLANIN YRS OLD MALE PATIENT WAS ADMITTED FROM HOME WITH A DX OF ALOC AND SEIZURE. PT HAS A HX OF SEIZURE. CXR SHOWED PNEUMONIA, RAPID COVID TEST NEGATIVE. EEG DONE READ BY DR ALEMAN CHANGED SEIZURE MEDICATION OK TO DC FROM NEURO STANDPOINT AND F/U WITH HIS NEUROLOGIST. DC PLAN AWAITING FOR MENTAL STATUS TO BE IMPROVED CM TO FOLLOW.
--- NOTE | 2020-08-20 15:35 | NUR ---
PATIENT IN BED SLEEPING, CHEST NOTED RISING. NO NOTED ACUTE S/S DISTRESS AT THIS TIME. CALL LIGHT WITHIN REACH. WILL CONTINUE TO MONITOR.
[2020-08-20] MEDS: LEVOTHYROXINE 0.05 MG TAB PO SCH (15:49)
[2020-08-20 16:00] VITALS: BP 141/93
--- NOTE | 2020-08-20 17:20 | NUR ---
PATIENT IN BED SLEEPING. NO NOTED ACUTE S/S DISTRESS. CALL LIGHT WITHIN REACH. WILL CONTINUE TO MONITOR.
--- NOTE | 2020-08-20 19:48 | NUR ---
ENDORSED PATIENT TO NIGHT NURSE. PATIENT IN STABLE CONDITION.
[2020-08-20 20:00] VITALS: BP 160/79
--- NOTE | 2020-08-20 20:10 | NUR ---
RECEIVED REPORT FROM CHARGE NURSE. PT IN BED RESTING. AAOX2-4, WITH MOMENTS OF CONFUSION. RESPIRATIONS ARE EVEN AND UNLABORED TO ROOM AIR. ABDOMEN IS SOFT AND NON-TENDER, ACTIVE BOWEL SOUNDS NOTED. SKIN IS WARM, DRY, AND INTACT. PT NOTED WITH BRUISES ON ARMS. PT WITH IV ACCESS ON RIGHT FOREARM G22 PATENT AND INTACT, IVF INFUSING WELL. PT DENIES ANY PAIN OR DISCOMFORT AT THIS TIME. NO REQUESTS MADE. SAFETY MEASURES IN PLACE, SEIZURE PRECAUTIONS IN PLACE. WILL CONTINUE TO MONITOR.
[2020-08-20] MEDS: TAMSULOSIN 0.4 MG CAP PO SCH (20:28)
[2020-08-20] MEDS: MEMANTINE 10 MG TAB PO SCH (20:30)
[2020-08-20] MEDS: OXcarbazepine 150 MG TAB PO SCH (20:30)
--- NOTE | 2020-08-20 20:34 | NUR ---
VS STABLE. PT IN BED WITH HOB ELEVATED. SCHEDULED MEDS GIVEN ORDERED. NO S/SX OF PAIN NOTED. PT KEPT COMFORTABLE. SAFETY MEASURES IN PLACE. CALL LIGHT WITHIN REACH. WILL CONTINUE TO MONITOR.
[2020-08-21] VITALS: BP 128/73
--- NOTE | 2020-08-21 00:04 | NUR ---
VS STABLE. PT NOT IN DISTRESS. DENIES ANY PAIN AT THIS TIME. PT REPOSITIONED COMFORTABLY IN BED. NO REQUESTS MADE. SAFETY MEASURES IN PLACE. WILL CONTINUE TO MONITOR.
--- NOTE | 2020-08-21 02:12 | NUR ---
PT ASLEEP. PT NOT IN DISTRESS. VISIBLE CHEST RISE AND FALL NOTED. NO S/SX OF PAIN OR DISCOMFORT. SAFETY MEASURES IN PLACE. CALL LIGHT WITHIN REACH. WILL CONTINUE TO MONITOR.
[2020-08-21 04:00] VITALS: BP 144/85
[2020-08-21] MEDS: NACL 0.9% 1,000 ML IV SCH (04:08)
--- NOTE | 2020-08-21 04:23 | NUR ---
VS STABLE. PT IN BED RESTING. PT NOT IN DISTRESS. DENIES ANY PAIN OR DISCOMFORT. PT REPOSITIONED COMFORTABLY IN BED. SAFETY MEASURES IN PLACE. CALL LIGHT WITHIN REACH. WILL CONTINUE TO MONITOR.
[2020-08-21] MEDS: LEVOTHYROXINE 0.05 MG TAB PO SCH (06:10)
[2020-08-21 06:11] LABS: BASOPHILS % (AUTO) 0.4 % (0.0-2.0); EOSINOPHILS # (AUTO) 0.1 K/uL (0-0.4); HEMATOCRIT 37.9 % (36-52); HEMOGLOBIN 13.3 g/dL (12.0-18.0); LYMPHOCYTES # (AUTO) 0.8 K/uL (2.0-11.5); LYMPHOCYTES % (AUTO) 13.8 % (20.5-51.1); MEAN CORPUSCULAR HEMOGLOBIN 32 pg (27-31); MEAN CORPUSCULAR HGB CONC 35 g/dL (33-37); MEAN CORPUSCULAR VOLUME 91.5 fL (80-94); MONOCYTES # (AUTO) 0.5 K/uL (0.8-1.0); MONOCYTES % (AUTO) 8.3 % (1.7-9.3); NEUTROPHILS # (AUTO) 4.7 K/uL (1.8-7.7); NEUTROPHILS % (AUTO) 76.5 % (42.2-75.2); PLATELET COUNT (AUTO) 168 K/uL (140-450); RED BLOOD CELL COUNT(AUTO) 4.14 MIL/uL (4.20-6.10); RED CELL DISTRIBUTION WIDTH 13.2 % (11.6-13.7); WHITE BLOOD COUNT (AUTO) 6.2 K/uL (4.8-10.8)
[2020-08-21 06:45] LABS: ANION GAP 14.7 (8-16); CARBON DIOXIDE 22.5 mmol/L (21-32); CREATININE 0.8 mg/dL (0.6-1.3); POTASSIUM 3.2 mmol/L (3.5-5.1)
--- NOTE | 2020-08-21 07:23 | NUR ---
RECEIVED PT FROM INDUSTRIAL TRACTOR DRIVER NURSE, PT IS RESTING IN BED, ON ROOM AIR, IV NOTED TO RFA RUNNING 60ML/HR WITH NS, SZ PRECAUTIONS IN PLACE, SAFETY AND FALL PRECAUTIONS IN PLACE, WILL CONTINUE TO MONITOR.
--- NOTE | 2020-08-21 07:35 | NUR ---
ENDORSED TO DAY SHIFT NURSE FOR CONTINUITY OF CARE
[2020-08-21 08:00] VITALS: BP 148/84
--- NOTE | 2020-08-21 09:22 | NUR ---
PATIENT HAS BEEN RE-SCREENED AND RE-CATEGORIZED MODERATE NUTRITIONAL RISK. PT WILL BE SEEN WITHIN 3-5 DAYS FROM ADMISSION 08/23/[address]
[2020-08-21] MEDS: risperiDONE 1 MG TAB PO SCH (09:44)
[2020-08-21] MEDS: OXcarbazepine 150 MG TAB PO SCH (09:44)
[2020-08-21] MEDS: PANTOPRAZOLE 40 MG TABEC PO SCH (09:45)
[2020-08-21] MEDS: PREGABALIN 50 MG CAP PO SCH (09:45)
[2020-08-21] MEDS: CLOPIDOGREL 75 MG TAB PO SCH (09:45)
[2020-08-21] MEDS: clonazePAM 0.5 MG TAB PO SCH (09:46)
[2020-08-21] MEDS: levETIRAcetam 500 MG in NACL 0.9% 100 ML IV SCH (09:47)
--- NOTE | 2020-08-21 09:57 | NUR ---
SCHEDULED MEDICATIONS ADMINISTERED, PT VERBALIZED UNDERSTANDING , WILL CONTINUE TO MONITOR.
[2020-08-21] MEDS ORDERED: SYN.05 PO (13:34)
[2020-08-21] MEDS ORDERED: OXCA150T28 PO (13:34)
--- NOTE | 2020-08-21 14:07 | NUR ---
PT STATED HE WAS HUNGRY, DR MONTANA MD ORDER TO BEGIN CARDIAC DIET.
--- NOTE | 2020-08-21 14:22 | NUR ---
SOCIAL WORK NOTE: Patient's Orientation Unable To Assess Information Provided By JEREMY HARRIS - Comments SW WAS UNABLE TO MEET PATIENT AT BEDSIDE. SW COMPLETED ASSESSMENT WITH PATIENT'S . Perioperative Nurse, Realtionship and Phone Number JEREMY VILLASENOR [phone] Healthcare Power of Brewer Helper No Does Patient Have a POLST No Identifying Problems No Social Work Triggers Is A Social Work Consult Needed No Mandate Report Filed No Explanation Of Identifying Problems PATIENT IS A 70-YEAR-OLD MALE ADMITTED FOR SEIZURE AND ALOC. PATIENT HAS PMHX OF SEIZURES. Admitted From Home Pre-Admission Level Of Functioning Status Assist With ADL Prior Resources/Services Used In Last 12 Months No Prior Resources Used Prior DME Walker Dialysis Comments N/A Living Situation House Lives With Spouse Patient Had Caregiver No Home Support No Caregiver Issues Financial Issues No Known Financial Issue Referral To The Financial Counselor Needed No Factors/Needs No D/C Needs Identified Pt/Rep Participated In Discharge Plan Yes Patient/Family Agress With Discharge Plan Yes Discharge Plan Comments TENTATIVE DISCHARGE PLAN IS FOR PATIENT TO RETURN HOME. DC Plan Status Initiated
[2020-08-21 15:56] VITALS: BP 146/92
--- NOTE | 2020-08-21 17:30 | NUR ---
PT DISCHARGED TO HOME WITH , DISCHARGE INSTRUCTIONS PROVIDED.
== END 2020-08-21 17:35 | disposition home or self-care (01) | DRG 101 ==
LOC: MED 21:07 → MTU 08-19 01:40
PROVIDERS: ADMIT Family Medicine; ATTEND Family Medicine
PROC: 4A00X4Z Measurement of Central Nervous Electrical Activity, External Approach (ICD-10-PCS; principal; 2020-08-20)
DX: G40.909 Epilepsy, unspecified, not intractable, without status epilepticus (principal); E87.1 Hypo-osmolality and hyponatremia; Z20.822 Contact with and (suspected) exposure to COVID-19; E78.5 Hyperlipidemia, unspecified; E87.6 Hypokalemia; F03.90 Unspecified dementia, unspecified severity, without behavioral disturbance, psychotic disturbance, mood disturbance, and anxiety; I25.10 Atherosclerotic heart disease of native coronary artery without angina pectoris; F32.9 Major depressive disorder, single episode, unspecified; N40.0 Benign prostatic hyperplasia without lower urinary tract symptoms; Z86.718 Personal history of other venous thrombosis and embolism; Z87.820 Personal history of traumatic brain injury; Z95.5 Presence of coronary angioplasty implant and graft; Z88.5 Allergy status to narcotic agent; Z88.0 Allergy status to penicillin; Z88.2 Allergy status to sulfonamides; Z79.899 Other long term (current) drug therapy
CPT/HCPCS: 36415; 70450; 71045; 80048; 80053; 80185; 80305; 81001; 82140; 82150; 83036; 83690; 83735; 83880; 84100; 84436; 84439; 84443; 84479; 84484; 85025; 85610; 85730; 87081; 93005; 93925; 93970; 97116; 97161-GP; 99285; C1758; G0482; J1953; J7030

== ENCOUNTER 2020-12-29 03:55 | Emergency (ER) | payer OTHER, BC ==
[~2020-12-29] VITALS: Ht 167.6 cm; Wt 57.6 kg
[~2020-12-29 03:55] MED LIST changes: -ACET-2619 PO; -CALCIUM +D3; -CEPH250C16 PO; -FIBER CAPSULE; -LACT10CA1 PO; +OXCA150T28 PO; -OXCA300T PO; -OXCA600T2 PO; -Oxcarbazepine PO; +PSYL0.529 PO; -RIVA15TA1 PO; +RIVA20TA PO; -SULF-59 PO; +SYN.05 PO; +VITA-204 PO; -VITE200 PO
[2020-12-29 04:02] VITALS: BP 135/82
--- NOTE | 2020-12-29 04:26 | NUR ---
Patient being evaluated by physician at bedside.
--- NOTE | 2020-12-29 04:30 | NUR ---
70 Y/O MALE CAME TO THE ED WITH ON BED SIDE C/O RT GROIN PAIN. PT STATED, "IT HURTS (POINTING RT GROIN AREA) SPECIALLY WHEN I STAND." PER , PT RATED SHARP PAIN OF 5/10 THAT IS NON RADIATING. RT GROIN AREA HAS BULGING AND SWELLING HERNIA, BUT NO REDNESS AND IS NOT WARM TO TOUCH. PT IS A&OX4, AMBULATORY WITH ASSISTIVE DEVICE. PMH: HEART ATTACK, ENLARGED PROSTATE, BLOOD CLOTS ON BILATERAL LOWER LEGS, DEMENTIA, SEIZURES ALLERGIES: PENICILLIN, SULFA
[2020-12-29] MEDS ORDERED: ACETAMINOPHEN EXTRA STRENGTH 500 MG TAB PO ONE (04:45)
[2020-12-29 05:44] VITALS: BP 135/82
--- NOTE | 2020-12-29 05:44 | NUR ---
LEFT WITHOUT DISCHARGE PAPERS
== END 2020-12-29 05:44 | disposition home or self-care (01) ==
LOC: MED 03:55
DX: K40.90 Unilateral inguinal hernia, without obstruction or gangrene, not specified as recurrent (principal); F03.90 Unspecified dementia, unspecified severity, without behavioral disturbance, psychotic disturbance, mood disturbance, and anxiety; Z88.0 Allergy status to penicillin; Z88.2 Allergy status to sulfonamides; Z88.5 Allergy status to narcotic agent; Z79.899 Other long term (current) drug therapy
CPT/HCPCS: 99282

== ENCOUNTER 2021-01-19 19:27 | Emergency (ER) | payer OTHER, BC ==
[~2021-01-19] VITALS: Ht 167.6 cm; Wt 60.8 kg
[2021-01-19 19:33] VITALS: BP 155/88
[2021-01-19 20:22] LABS: EOSINOPHILS # (AUTO) 0.2 K/uL (0-0.4); HEMATOCRIT 41.1 % (36-52); HEMOGLOBIN 13.8 g/dL (12.0-18.0); LYMPHOCYTES # (AUTO) 0.6 K/uL (2.0-11.5); LYMPHOCYTES % (AUTO) 18.9 % (20.5-51.1); MEAN CORPUSCULAR HEMOGLOBIN 29 pg (27-31); MEAN CORPUSCULAR HGB CONC 34 g/dL (33-37); MEAN CORPUSCULAR VOLUME 86.6 fL (80-94); MONOCYTES # (AUTO) 0.3 K/uL (0.8-1.0); MONOCYTES % (AUTO) 8.6 % (1.7-9.3); NEUTROPHILS # (AUTO) 2.2 K/uL (1.8-7.7); NEUTROPHILS % (AUTO) 66.5 % (42.2-75.2); PLATELET COUNT (AUTO) 169 K/uL (140-450); RED BLOOD CELL COUNT(AUTO) 4.74 MIL/uL (4.20-6.10); RED CELL DISTRIBUTION WIDTH 14.9 % (11.6-13.7); WHITE BLOOD COUNT (AUTO) 3.2 K/uL (4.8-10.8)
[2021-01-19 20:33] LABS: ANION GAP 20.4 (8-16); CARBON DIOXIDE 22.7 mmol/L (21-32); CREATININE 1.1 mg/dL (0.6-1.3); POTASSIUM 4.1 mmol/L (3.5-5.1)
[2021-01-19 21:37] VITALS: BP 143/93
== END 2021-01-19 21:15 | disposition home or self-care (01) ==
LOC: MED 19:27
DX: R56.9 Unspecified convulsions (principal); F03.90 Unspecified dementia, unspecified severity, without behavioral disturbance, psychotic disturbance, mood disturbance, and anxiety; I11.9 Hypertensive heart disease without heart failure; Z88.2 Allergy status to sulfonamides; Z88.0 Allergy status to penicillin; Z88.5 Allergy status to narcotic agent; Z79.899 Other long term (current) drug therapy
CPT/HCPCS: 36415; 70450; 80048; 81002; 85025; 99284

== ENCOUNTER 2021-04-08 20:38 | Inpatient (IN) | payer OTHER, BC ==
[~2021-04-08] VITALS: Ht 170.2 cm; Wt 54.0 kg
--- NOTE | 2021-04-08 21:07 | NUR ---
PT BIBA FOR CHEST WALL PAIN THAT STARTED 5 DAYS AGO. EKG IN FIELD SHOWED NSR WITH NO ST ELEVATION. PT IS A/O X2 AND SLIGHTLY CONFUSED D/T DEMENTIA. [facility] AND D/CD. PMH- H/A, SZ, DEMENTIA
--- NOTE | 2021-04-08 21:07 | NUR ---
BIBA TO ER BED 4
[2021-04-08] MEDS ORDERED: IBUPROFEN 600 MG TAB PO ONE (21:20)
[2021-04-08 21:31] VITALS: BP 120/74
[2021-04-08 22:13] LABS: BASOPHILS # (AUTO) 0.1 K/uL (0.00-0.22); BASOPHILS % (AUTO) 1.3 % (0.0-2.0); EOSINOPHILS # (AUTO) 0.2 K/uL (0-0.4); EOSINOPHILS % (AUTO) 4.9 % (0.0-4.0); HEMATOCRIT 37.6 % (36-52); HEMOGLOBIN 12.4 g/dL (12.0-18.0); LYMPHOCYTES # (AUTO) 1.1 K/uL (2.0-11.5); LYMPHOCYTES % (AUTO) 22.7 % (20.5-51.1); MEAN CORPUSCULAR HEMOGLOBIN 28 pg (27-31); MEAN CORPUSCULAR HGB CONC 33 g/dL (33-37); MEAN CORPUSCULAR VOLUME 83.3 fL (80-94); MONOCYTES # (AUTO) 0.7 K/uL (0.8-1.0); MONOCYTES % (AUTO) 15.2 % (1.7-9.3); NEUTROPHILS # (AUTO) 2.6 K/uL (1.8-7.7); NEUTROPHILS % (AUTO) 55.9 % (42.2-75.2); PLATELET COUNT (AUTO) 186 K/uL (140-450); RED BLOOD CELL COUNT(AUTO) 4.51 MIL/uL (4.20-6.10); RED CELL DISTRIBUTION WIDTH 14.9 % (11.6-13.7); WHITE BLOOD COUNT (AUTO) 4.7 K/uL (4.8-10.8)
[2021-04-08 22:37] LABS: ALBUMIN 3.1 g/dL (3.4-5.0); ANION GAP 9.7 (8-16); CARBON DIOXIDE 26.7 mmol/L (21-32); POTASSIUM 3.4 mmol/L (3.5-5.1); TOTAL BILIRUBIN 0.2 mg/dL (0.0-1.0)
--- NOTE | 2021-04-08 23:16 | NUR ---
PT SLEEPING IN BED. CHEST RISE AND FALL EVEN AND UNLABORED. NO SIGNS OF DISTRESS
--- NOTE | 2021-04-09 01:37 | NUR ---
PT ASLEEP IN BED. EVEN CHEST RISE AND FALL NOTED
[2021-04-09] MEDS ORDERED: SYN.05 PO (03:54)
[2021-04-09] MEDS ORDERED: OXCA300S PO (03:54)
[2021-04-09] MEDS ORDERED: PREG225C PO (03:54)
[2021-04-09] MEDS ORDERED: CLOP75TA55 PO (03:54)
[2021-04-09] MEDS ORDERED: KEP500 PO (03:54)
[2021-04-09] MEDS ORDERED: PREG300C PO (04:06)
[2021-04-09] MEDS ORDERED: CLON0.5T PO (04:06)
[2021-04-09] MEDS ORDERED: ROSU5TAB PO (04:06)
[2021-04-09] MEDS ORDERED: RISP0.5T3 PO (04:06)
[2021-04-09] MEDS ORDERED: LEVO0.5S3 PO (04:06)
[2021-04-09] MEDS ORDERED: MEMA5TAB PO (04:06)
[2021-04-09] MEDS ORDERED: TAMS0.4C96 PO (04:06)
[2021-04-09] MEDS ORDERED: OXCA600T2 PO (04:06)
[2021-04-09] MEDS ORDERED: RIVA15TA1 PO (04:06)
[2021-04-09] MEDS ORDERED: VENL150C1 PO (04:06)
[2021-04-09] MEDS ORDERED: ZONI100C22 PO (04:06)
[2021-04-09 06:59] LABS: BASOPHILS % (AUTO) 1.1 % (0.0-2.0); EOSINOPHILS # (AUTO) 0.2 K/uL (0-0.4); EOSINOPHILS % (AUTO) 5.7 % (0.0-4.0); HEMATOCRIT 40.4 % (36-52); HEMOGLOBIN 13.3 g/dL (12.0-18.0); LYMPHOCYTES # (AUTO) 1.2 K/uL (2.0-11.5); LYMPHOCYTES % (AUTO) 28.7 % (20.5-51.1); MEAN CORPUSCULAR HEMOGLOBIN 28 pg (27-31); MEAN CORPUSCULAR HGB CONC 33 g/dL (33-37); MONOCYTES # (AUTO) 0.8 K/uL (0.8-1.0); MONOCYTES % (AUTO) 18.3 % (1.7-9.3); NEUTROPHILS # (AUTO) 1.9 K/uL (1.8-7.7); NEUTROPHILS % (AUTO) 46.2 % (42.2-75.2); PLATELET COUNT (AUTO) 182 K/uL (140-450); RED BLOOD CELL COUNT(AUTO) 4.81 MIL/uL (4.20-6.10); RED CELL DISTRIBUTION WIDTH 14.8 % (11.6-13.7); WHITE BLOOD COUNT (AUTO) 4.1 K/uL (4.8-10.8)
--- NOTE | 2021-04-09 07:10 | NUR ---
report and transfer of care recieved from maximo peña.
[2021-04-09] MEDS ORDERED: ONDANSETRON 4 MG/2 ML VIAL IVP PRN (08:25)
[2021-04-09] MEDS ORDERED: ZOLPIDEM 5 MG TAB PO PRN (08:25)
[2021-04-09] MEDS ORDERED: LORazepam 2 MG/ML VIAL IM/IVP PRN (08:25)
[2021-04-09] MEDS ORDERED: MAG SULF 2000 MG/WATER PREMIX 50 ML IV PRN (08:25)
[2021-04-09] MEDS ORDERED: MORPHINE SULFATE 2 MG/ML SYR IVP PRN (08:25)
[2021-04-09] MEDS ORDERED: POTASSIUM CHLORIDE 10 MEQ TABER PO PRN (08:25)
[2021-04-09] MEDS ORDERED: HYDROcodone/APAP 5/325 MG 1 TAB TAB PO PRN (08:25)
[2021-04-09] MEDS ORDERED: SODIUM PHOS / POTASSIUM PHOS 1 PKT PDR PO PRN (08:25)
[2021-04-09] MEDS ORDERED: DOCUSATE SODIUM 100 MG GELCAP PO PRN (08:25)
[2021-04-09 08:33] LABS: ANION GAP 12.2 (8-16); CARBON DIOXIDE 25.5 mmol/L (21-32); POTASSIUM 3.7 mmol/L (3.5-5.1)
[2021-04-09 08:34] LABS: ALBUMIN 3.5 g/dL (3.4-5.0); TOTAL BILIRUBIN 0.2 mg/dL (0.0-1.0)
[2021-04-09] MEDS ORDERED: CYANOCOBALAMIN 100 MCG TAB PO SCH (09:00)
[2021-04-09] MEDS ORDERED: VENLAFAXINE XR 75 MG CAPER PO SCH ×2 (09:00→17:00)
[2021-04-09 09:42] LABS: FREE T4 (FREE THYROXINE) 0.61 ng/dL (0.76-1.46); PHOSPHORUS 2.9 mg/dL (2.5-4.9); THYROID STIMULATING HORMONE 1.83 uIU/mL (0.34-3.74)
--- NOTE | 2021-04-09 10:00 | NUR ---
PATIENT GIVEN MEAL TRAY AT BEDSIDE.
[2021-04-09] MEDS: CLOPIDOGREL 75 MG TAB PO SCH (10:22)
[2021-04-09] MEDS: levETIRAcetam 500 MG TAB PO SCH ×2 (10:22→23:09)
[2021-04-09] MEDS: clonazePAM 0.5 MG TAB PO SCH ×2 (10:22→23:09)
[2021-04-09] MEDS: CHOLECALCIFEROL 1,000 IU TAB PO SCH (10:22)
[2021-04-09] MEDS: NACL 0.9% 1,000 ML IV SCH ×2 (10:22→19:13)
--- NOTE | 2021-04-09 10:22 | NUR ---
PATIENT GIVEN SCHEDULED AM MEDS, TOLERATED WELL. VSS.
[2021-04-09] MEDS: RIVAROXABAN 15 MG TAB PO SCH (11:41)
[2021-04-09] MEDS: OXcarbazepine 150 MG TAB PO SCH ×2 (11:41→23:10)
--- NOTE | 2021-04-09 12:20 | NUR ---
TEMPLE CATHETER INSERTED PER MD ORDER, STERILE TECHNIQUE USED. URINE OUTPUT 700ML.
[2021-04-09 12:56] LABS: APPEARANCE,URINE CLEAR (CLEAR); BILIRUBIN,URINE NEGATIVE (NEGATIVE); BLOOD, URINE NEGATIVE (NEGATIVE); COLOR,URINE YELLOW (YELLOW); LEUKOCYTE ESTERASE ,URINE NEGATIVE (NEGATIVE); NITRITE, URINE NEGATIVE (NEGATIVE); PH,URINE 7.5 (5.0-9.0); UGLUCOSE NEGATIVE (NEGATIVE)
[2021-04-09 13:10] LABS: BARBITURATE, URINE NEGATIVE ng/ml (NEG <=200); BENZODIAZEPINE, URINE NEGATIVE ng/mL (NEG <=200); CANNABINOID, URINE NEGATIVE ng/mL (NEG <=50); COCAINE, URINE NEGATIVE ng/mL (NEG <=300); OPIATE, URINE NEGATIVE ng/mL (NEG <=2000); PHENCYCLIDINE SCREEN,URINE NEGATIVE ng/mL (NEG <=25)
[2021-04-09 13:35] LABS: PROTHROMBIN TIME 10.8 secs (10.8-13.4)
--- NOTE | 2021-04-09 14:28 | NUR ---
Forestry Hunter at bedside.
[2021-04-09] MEDS ORDERED: ACETAMINOPHEN EXTRA STRENGTH 500 MG TAB PO PRN (14:40)
--- NOTE | 2021-04-09 16:06 | NUR ---
PATIENT IN BED RESTING, RR EVEN AND UNLABORED.
--- NOTE | 2021-04-09 16:56 | NUR ---
PER PHARMACY, PLEASE BRING PATIENTS HOME MEDS IN AM THEY ARE WITH PATIENT AT BEDSIDE.
[2021-04-09] MEDS ORDERED: LEVOCETIRIZINE DIHYDROCHLORIDE PO SCH (17:00)
[2021-04-09] MEDS ORDERED: MEMANTINE 10 MG TAB PO SCH ×2 (17:00)
[2021-04-09] MEDS ORDERED: ZONISAMIDE PO SCH (17:00)
[2021-04-09] MEDS ORDERED: CRUSHER, PILL MC ONE (17:36)
[2021-04-09] MEDS: risperiDONE 1 MG TAB PO SCH (17:42)
--- NOTE | 2021-04-09 18:20 | NUR ---
PATIENT GIVEN MEAL TRAY AT BEDSIDE.
--- NOTE | 2021-04-09 18:50 | NUR ---
1,700 ML OF URINE OUTPUT EMPTIED FROM TEMPLE COLLECTION BAG
--- NOTE | 2021-04-09 19:49 | NUR ---
REPORT AND TRANSFER OF CARE GIVEN TO SERENA HUTTON.
[2021-04-09] MEDS ORDERED: NON-FORMULARY ITEM (Ranitidine HCl (Zantac) 1 TAB) PO SCH (21:00)
[2021-04-09] MEDS ORDERED: PREGABALIN 300 MG PO SCH (21:00)
[2021-04-09] MEDS ORDERED: VENLAFAXINE HCL 150 MG PO SCH (21:00)
[2021-04-09] MEDS ORDERED: LATANOPROST OP SCH (21:00)
--- NOTE | 2021-04-09 21:57 | NUR ---
ambulated patient to the bathroom.
--- NOTE | 2021-04-09 22:10 | NUR ---
attempted to call for updates-- no answer at this time
[2021-04-09] MEDS: TAMSULOSIN 0.4 MG CAP PO SCH (23:08)
[2021-04-09] MEDS: PREGABALIN 50 MG CAP PO SCH (23:12)
[2021-04-10] MEDS: NACL 0.9% 1,000 ML IV SCH ×2 (04:25→14:34)
--- NOTE | 2021-04-10 07:10 | NUR ---
Pt report given to Jaylin LYONS. Transfer of care at this time.
--- NOTE | 2021-04-10 07:11 | NUR ---
patient to CT via [facility]
[2021-04-10] MEDS: LEVOTHYROXINE 0.05 MG TAB PO SCH (07:23)
--- NOTE | 2021-04-10 07:23 | NUR ---
patient back from CT
--- NOTE | 2021-04-10 07:29 | NUR ---
report received from maximo bates. transfer of care received
[2021-04-10 07:58] LABS: BASOPHILS % (AUTO) 1.1 % (0.0-2.0); EOSINOPHILS # (AUTO) 0.2 K/uL (0-0.4); EOSINOPHILS % (AUTO) 4.7 % (0.0-4.0); HEMATOCRIT 40.3 % (36-52); HEMOGLOBIN 13.6 g/dL (12.0-18.0); LYMPHOCYTES # (AUTO) 0.9 K/uL (2.0-11.5); LYMPHOCYTES % (AUTO) 22.8 % (20.5-51.1); MEAN CORPUSCULAR HEMOGLOBIN 28 pg (27-31); MEAN CORPUSCULAR HGB CONC 34 g/dL (33-37); MEAN CORPUSCULAR VOLUME 81.2 fL (80-94); MONOCYTES # (AUTO) 0.4 K/uL (0.8-1.0); MONOCYTES % (AUTO) 10.3 % (1.7-9.3); NEUTROPHILS # (AUTO) 2.5 K/uL (1.8-7.7); NEUTROPHILS % (AUTO) 61.1 % (42.2-75.2); PLATELET COUNT (AUTO) 188 K/uL (140-450); RED BLOOD CELL COUNT(AUTO) 4.96 MIL/uL (4.20-6.10); RED CELL DISTRIBUTION WIDTH 14.9 % (11.6-13.7); WHITE BLOOD COUNT (AUTO) 4.1 K/uL (4.8-10.8)
[2021-04-10 08:11] LABS: ALBUMIN 3.2 g/dL (3.4-5.0); ANION GAP 9.8 (8-16); CARBON DIOXIDE 26.2 mmol/L (21-32); CREATININE 0.8 mg/dL (0.6-1.3); MAGNESIUM 1.9 mg/dL (1.8-2.4); TOTAL BILIRUBIN 0.3 mg/dL (0.0-1.0)
[2021-04-10] MEDS ORDERED: PREGABALIN 25 MG CAP ONE (08:19)
[2021-04-10] MEDS: levETIRAcetam 500 MG TAB PO SCH ×2 (08:31→20:40)
[2021-04-10] MEDS: ATORVASTATIN 20 MG TAB PO SCH (08:32)
[2021-04-10] MEDS: clonazePAM 0.5 MG TAB PO SCH ×2 (08:32→20:40)
[2021-04-10] MEDS: FAMOTIDINE 20 MG TAB PO SCH (08:33)
[2021-04-10] MEDS: CLOPIDOGREL 75 MG TAB PO SCH (08:34)
[2021-04-10] MEDS: OXcarbazepine 150 MG TAB PO SCH ×2 (08:35→20:42)
[2021-04-10] MEDS: CHOLECALCIFEROL 1,000 IU TAB PO SCH (08:36)
[2021-04-10] MEDS: RIVAROXABAN 15 MG TAB PO SCH (08:36)
--- NOTE | 2021-04-10 08:55 | NUR ---
2300 ML REMOVED FROM PT TEMPLE BEDSIDE
--- NOTE | 2021-04-10 08:57 | NUR ---
PATIENT HAS BEEN SCREENED AND CATEGORIZED LOW NUTRITION RISK. PATIENT WILL BE SEEN WITHIN 7 DAYS OF ADMISSION. 04/15/[address]
[2021-04-10] MEDS ORDERED: PREGABALIN PO SCH ×2 (09:00)
[2021-04-10] MEDS ORDERED: PREGABALIN 225 MG PO SCH (09:00)
[2021-04-10] MEDS ORDERED: PSYLLIUM HUSK PO SCH (09:00)
[2021-04-10] MEDS ORDERED: NON-FORMULARY ITEM (Rosuvastatin Calcium* (Crestor*) 1 TAB) PO SCH ×2 (09:00)
[2021-04-10] MEDS ORDERED: CYANOCOBALAMIN 1,000 MCG TAB PO SCH (09:33)
[2021-04-10] MEDS ORDERED: VENLAFAXINE XR 75 MG CAPER PO SCH (09:37)
[2021-04-10] MEDS: PATIENTS OWN CAPSULE PO SCH ×3 (10:17→20:41)
[2021-04-10] MEDS ORDERED: IBUP-1842 PO (10:45)
--- NOTE | 2021-04-10 11:54 | NUR ---
TEMPLE CATHETOR REMOVED BEDSIDE. PT HANDLED REMOVAL WELL. 1000 ML REMOVED FROM CATHETOR. URINAL PROVIDED TO PT FOR VOID TRAIL. WILL CONTINUE TO MONITOR
--- NOTE | 2021-04-10 12:00 | NUR ---
PT HAS BEEN PROVIDED WITH LUNCH TRAY BEDSIDE
--- NOTE | 2021-04-10 13:13 | NUR ---
PT BEDSIDE WITH PATIENT
--- NOTE | 2021-04-10 13:40 | NUR ---
PHYSICAL THERAPIST GIANNA HAS RECOMMENDED HOME HEALTH THERAPY FOR PT DUE TO PT WEAKNESS. DR. CASTILLO HAS BEEN MADE AWARE
--- NOTE | 2021-04-10 14:32 | NUR ---
PT CURRENTLY RESTING WITH EYES OPEN AND EATING BREAD FROM LUNCH. VITAL SIGNS CURRENTLY STABLE. PT SILL ON BINGO CHECKER. BED IN LOWEST POSITION WITH SIDERAIL X2 UP. WILL CONTINUE TO MONITOR
--- NOTE | 2021-04-10 14:32 | NUR ---
ASSESSED TO DETERMINE IF PT HAS URINATED. OF RIGHT NOW PT HAS NOT URINATED. WILL CONTINUE TO MONITOR AND ASSESS FOR URINE OUTPUT
--- NOTE | 2021-04-10 16:47 | NUR ---
pt has yet to urinate at this time. bladder scan performed bedside and currently at 307 mL. will continue to monitor
[2021-04-10] MEDS ORDERED: PATIENTS OWN TABLET PO SCH (17:00)
[2021-04-10] MEDS: VENLAFAXINE XR 75 MG CAPER PO SCH (17:44)
[2021-04-10] MEDS: risperiDONE 1 MG TAB PO SCH (17:44)
--- NOTE | 2021-04-10 19:10 | NUR ---
PT PROVIDED WITH DINNER TRAY
--- NOTE | 2021-04-10 19:11 | NUR ---
Pt report given to SERENA GEE. Transfer of care at this time.
--- NOTE | 2021-04-10 19:14 | NUR ---
REPORT RECEIVED FROM SERENA CHAVEZ. TRANSFER OF CARE AT THIS TIME.
--- NOTE | 2021-04-10 19:16 | NUR ---
pt is sitting up in bed eating dinner, offered to help pt, pt stated "im ok thank you very much". pt denied need to urinate at this time. all needs met at this time, bed locked in lowest position side rails x2.
[2021-04-10] MEDS: LATANOPROST 0.005% OP 2.5 ML BTL OP SCH (20:38)
[2021-04-10] MEDS: TAMSULOSIN 0.4 MG CAP PO SCH (20:40)
[2021-04-10] MEDS: PREGABALIN 50 MG CAP PO SCH (20:41)
[2021-04-10] MEDS: ACETAMINOPHEN 325 MG TAB PO PRN (20:45)
--- NOTE | 2021-04-10 21:00 | NUR ---
PT FINISHED DINNER 90% CONSUMED. 200 CC OF FLUIDS.
--- NOTE | 2021-04-10 22:21 | NUR ---
BLADDER SCAN SHOWS 560CC.
--- NOTE | 2021-04-10 22:55 | NUR ---
PT IS RESTING, EQUAL RISE AND FALL OF CHEST WALL. VSS, PT IS IN STABLE CONDITION. ALL NEEDS MET AT THIS TIME. BED LOCKED IN LOWEST POSITION, SIDE RAILS X2.
--- NOTE | 2021-04-10 23:06 | NUR ---
CALLED AND UPDATED ABOUT PT'S STATUS AND ADMISSION.
--- NOTE | 2021-04-10 23:30 | NUR ---
REPORT GIVEN TO SERENA ARROYO.
--- NOTE | 2021-04-10 23:45 | NUR ---
RECEIVED REPORT FROM SAHARA GEE RN FOR ADMIT TO [facility] ROOM 121B. PT ARRIVED AAOX4. NO APPARENT S/S OF ACUTE DISTRESS. BREATHING EVEN AND UNLABORED ON RA WITH O2 SAT OF 100%. NO C/O CP, SOB OR PAIN. R AC 20G INTACT/APTEN Addendum: 04/11/21 at 0714 by Kathy Bahena RN R AC 20G INTACT/PATENT WITH NS@100ML/HR. POC AND WHITE COMMUNICATION BOARD UPDATED. BED IN LOW/LOCKED POSITION. CALL LIGHT WITHIN REACH. PT ENCOURAGED TO CALL FOR ANY NEEDS/ASSISTANCE. WILL CONTINUE TO MONITOR.
--- NOTE | 2021-04-10 23:48 | NUR ---
Patient will be admitted to care of . Admited to TELE. Will go to room 121B. Belongings list completed. Report to SERENA ARROYO.
[2021-04-11] MEDS: NACL 0.9% 1,000 ML IV SCH ×3 (00:25→20:25)
[2021-04-11 00:29] VITALS: BP 119/74
[2021-04-11 04:00] VITALS: BP 139/96
[2021-04-11 06:16] LABS: BASOPHILS # (AUTO) 0.1 K/uL (0.00-0.22); BASOPHILS % (AUTO) 1.2 % (0.0-2.0); EOSINOPHILS # (AUTO) 0.2 K/uL (0-0.4); EOSINOPHILS % (AUTO) 5.5 % (0.0-4.0); HEMATOCRIT 39.3 % (36-52); HEMOGLOBIN 12.9 g/dL (12.0-18.0); LYMPHOCYTES # (AUTO) 1.2 K/uL (2.0-11.5); MEAN CORPUSCULAR HEMOGLOBIN 28 pg (27-31); MEAN CORPUSCULAR HGB CONC 33 g/dL (33-37); MEAN CORPUSCULAR VOLUME 83.8 fL (80-94); MONOCYTES # (AUTO) 0.5 K/uL (0.8-1.0); MONOCYTES % (AUTO) 12.7 % (1.7-9.3); NEUTROPHILS # (AUTO) 2.2 K/uL (1.8-7.7); NEUTROPHILS % (AUTO) 51.6 % (42.2-75.2); PLATELET COUNT (AUTO) 195 K/uL (140-450); RED BLOOD CELL COUNT(AUTO) 4.69 MIL/uL (4.20-6.10); RED CELL DISTRIBUTION WIDTH 14.7 % (11.6-13.7); WHITE BLOOD COUNT (AUTO) 4.2 K/uL (4.8-10.8)
[2021-04-11] MEDS: LEVOTHYROXINE 0.05 MG TAB PO SCH (06:43)
[2021-04-11 07:06] LABS: ALBUMIN 3.1 g/dL (3.4-5.0); ANION GAP 10.8 (8-16); CARBON DIOXIDE 25.2 mmol/L (21-32); CREATININE 0.9 mg/dL (0.6-1.3); TOTAL BILIRUBIN 0.1 mg/dL (0.0-1.0)
--- NOTE | 2021-04-11 07:14 | NUR ---
REPORT GIVEN TO STEPH LYONS FOR CONTINUITY OF CARE. PT SITTING UP AAOX4. NO APPARENT S/S OF ACUTE DISTRESS. BREATHING EVEN AND UNLABORED. BED IN LOW/LOCKED POSITION. CALL LIGHT WITHIN REACH. ALL NEEDS MET AT THIS TIME.
--- NOTE | 2021-04-11 08:05 | NUR ---
RECEIVED REPORT FROM PM RN. PT CURRENTLY SITTING UP IN BED, EYES CLOSED, RESPONDS TO NAME. PT HAS C/O PAIN OR DISCOMFORT AT THIS TIME. A0X3. BED AT LOWEST, CALL LIGHT AT REACH. WILL CONT MONITORING..
[2021-04-11 08:10] VITALS: BP 145/87
[2021-04-11] MEDS: CHOLECALCIFEROL 1,000 IU TAB PO SCH (08:33)
[2021-04-11] MEDS: ATORVASTATIN 20 MG TAB PO SCH (08:34)
[2021-04-11] MEDS: levETIRAcetam 500 MG TAB PO SCH ×2 (08:35→23:04)
[2021-04-11] MEDS: OXcarbazepine 150 MG TAB PO SCH ×2 (08:36→23:13)
[2021-04-11] MEDS: FAMOTIDINE 20 MG TAB PO SCH (08:37)
[2021-04-11] MEDS: clonazePAM 0.5 MG TAB PO SCH ×2 (08:40→21:00)
[2021-04-11] MEDS: CLOPIDOGREL 75 MG TAB PO SCH (08:41)
[2021-04-11] MEDS: RIVAROXABAN 15 MG TAB PO SCH (08:42)
[2021-04-11] MEDS: PATIENTS OWN CAPSULE PO SCH ×3 (09:00→21:00)
--- NOTE | 2021-04-11 09:20 | NUR ---
PTS PREGABALIN MEDICATION FROM HOME WAS NOT GIVEN BECAUSE PER PHARMACY IT WAS GIVEN LAST NIGHT.
[2021-04-11 12:04] VITALS: BP 141/88
[2021-04-11 16:00] VITALS: BP 121/77
--- NOTE | 2021-04-11 16:25 | NUR ---
SPOKE TO JEREMY AND SHE STATED BEING UPSET BECAUSE SHE DOESNT THINK HENRY IS READY TO BE DC'D DUE TO HIM STILL C/O PAIN AND NO SOURCE OF PAIN HAS BEEN FOUND YET. SHE SAID SHE CANNOT TAKE HIM LIKE THAT. SHE BELIEVES HE HAS A FRACTURE SOMEWHERE AND WOULD LIKE FOR A CT OF THE BACK TO BE DONE. SHE ALSO STATED BEING UPSET THAT NO DOCTOR HAS SPOKEN TO HER SINCE HES BEEN HERE. I MADE DR CASTILLO AWARE OF ALL THIS. I ALSO INFORMED PRESIDENT AND CHIEF OPERATING OFFICER. WILL CONT MONITORING.
[2021-04-11] MEDS: ACETAMINOPHEN 325 MG TAB PO PRN (17:32)
[2021-04-11] MEDS: VENLAFAXINE XR 75 MG CAPER PO SCH (17:32)
[2021-04-11] MEDS: risperiDONE 1 MG TAB PO SCH (17:33)
--- NOTE | 2021-04-11 19:11 | NUR ---
PER DR CASTILLO, PT WILL BE STAYING FOR NOW UNTIL TESTS COME BACK NEGATIVE. WILL ENDORSE REPORT TO PM RN
[2021-04-11 20:00] VITALS: BP 131/75
[2021-04-11] MEDS: LATANOPROST 0.005% OP 2.5 ML BTL OP SCH (21:00)
[2021-04-11] MEDS: TAMSULOSIN 0.4 MG CAP PO SCH (23:04)
[2021-04-11] MEDS: PREGABALIN 50 MG CAP PO SCH (23:12)
[2021-04-12] VITALS: BP 115/74
[2021-04-12] MEDS: ACETAMINOPHEN 325 MG TAB PO PRN (00:21)
[2021-04-12] MEDS: NACL 0.9% 1,000 ML IV SCH (05:42)
[2021-04-12] MEDS: LEVOTHYROXINE 0.05 MG TAB PO SCH (05:50)
[2021-04-12 06:23] VITALS: BP 123/68
[2021-04-12 06:55] LABS: BASOPHILS # (AUTO) 0.1 K/uL (0.00-0.22); EOSINOPHILS # (AUTO) 0.2 K/uL (0-0.4); EOSINOPHILS % (AUTO) 3.2 % (0.0-4.0); HEMOGLOBIN 12.7 g/dL (12.0-18.0); LYMPHOCYTES # (AUTO) 0.9 K/uL (2.0-11.5); LYMPHOCYTES % (AUTO) 13.5 % (20.5-51.1); MEAN CORPUSCULAR HEMOGLOBIN 27 pg (27-31); MEAN CORPUSCULAR HGB CONC 33 g/dL (33-37); MEAN CORPUSCULAR VOLUME 81.9 fL (80-94); MONOCYTES # (AUTO) 0.6 K/uL (0.8-1.0); MONOCYTES % (AUTO) 9.6 % (1.7-9.3); NEUTROPHILS # (AUTO) 4.8 K/uL (1.8-7.7); NEUTROPHILS % (AUTO) 72.7 % (42.2-75.2); PLATELET COUNT (AUTO) 198 K/uL (140-450); RED BLOOD CELL COUNT(AUTO) 4.63 MIL/uL (4.20-6.10); RED CELL DISTRIBUTION WIDTH 14.7 % (11.6-13.7); WHITE BLOOD COUNT (AUTO) 6.7 K/uL (4.8-10.8)
--- NOTE | 2021-04-12 07:20 | NUR ---
RECEIVED REPORT FROM ABSORPTION OPERATOR RN. PT LAYING ON BED, NO SIGN OF DISTRESS NOTED, BREATHING EVEN UNLABORED, NO COMPLAINS. A0X2. PT ON CARDIA MONITOR ALL SAFETY MEASURES ON PLACE, CALL LIGHT AT REACH.
[2021-04-12 07:21] LABS: ANION GAP 12.3 (8-16); CARBON DIOXIDE 25.5 mmol/L (21-32); CREATININE 0.9 mg/dL (0.6-1.3); MAGNESIUM 1.8 mg/dL (1.8-2.4); POTASSIUM 3.8 mmol/L (3.5-5.1); TOTAL BILIRUBIN 0.2 mg/dL (0.0-1.0)
[2021-04-12] MEDS: CHOLECALCIFEROL 1,000 IU TAB PO SCH (08:18)
[2021-04-12] MEDS: CLOPIDOGREL 75 MG TAB PO SCH (08:18)
[2021-04-12] MEDS: levETIRAcetam 500 MG TAB PO SCH (08:18)
[2021-04-12] MEDS: ATORVASTATIN 20 MG TAB PO SCH (08:19)
[2021-04-12] MEDS: FAMOTIDINE 20 MG TAB PO SCH (08:19)
[2021-04-12] MEDS: clonazePAM 0.5 MG TAB PO SCH (08:20)
[2021-04-12] MEDS: RIVAROXABAN 15 MG TAB PO SCH (08:21)
[2021-04-12] MEDS: OXcarbazepine 150 MG TAB PO SCH (08:22)
--- NOTE | 2021-04-12 08:41 | NUR ---
PT SITTING ON BED NO COMPLAINS, MORNING MEDICATION ADMINISTRATED, REID.ERATED WELL. PT GOT CHANGED AND CLEANED. ALL SAFETY MEASURES ON PLACE. CALLS LIGHT WITHIN REACH
[2021-04-12] MEDS: PATIENTS OWN CAPSULE PO SCH (09:00)
--- NOTE | 2021-04-12 10:40 | NUR ---
PT SITTING ON BED NO COMPLAINS, PT GOT CHANGED AND CLEANED. ALL SAFETY MEASURES ON PLACE. CALLS LIGHT WITHIN REACH
[2021-04-12 12:00] VITALS: BP 128/73
--- NOTE | 2021-04-12 12:35 | NUR ---
PT SITTING ON BED NO COMPLAINS. PT IS EATING LUNCH. ALL SAFETY MEASURES ON PLACE. CALLS LIGHT WITHIN REACH
--- NOTE | 2021-04-12 12:38 | NUR ---
DC PLANNING: ORDERS RECEIVED TO REFER PATIENT TO A SNF. MD RESIDENT DOCUMENTATION STATES THAT THE PATIENT HAS AGREED TO SNF PLACEMENT FOR THE PATIENT. CM TRIED TO REACH THE PATIENTS AT THE NUMBER LISTED IN THE RESIDENTS DOCUMENTATION, NUMBER HAS BEEN DISCONNECTED ([phone]) ALSO CALLED [phone], NUMBER IS DISCONNECTED. LEFT A MESSAGE FOR HIS ON [phone] ASKING FOR A CALL BACK. INFORMATION FAXED TO [facility]. CM WILL FOLLOW FOR NEEDS. Addendum: 04/12/21 at 1411 by Claudette Han CM DC PLANNING: PATIENT ACCEPTED TO [facility], ROOM 102C. ARRANGED FOR TRANSPORT WITH MEDICAL VAN PATIENT IS MEDICARE WITH BS SECONDARY AND DOES NOT REQUIRE AMBULANCE TRANSPORT. MESSAGE LEFT FOR HIS ENDORSING ABOVE AT [phone], CM ALSO TRIED TO SPEAK WITH THE PATIENT TO CONFIRM HIS 'S PHONE NUMBER, HE SMILED BUT DID NOT RESPOND. CM ALSO CALLED OTHER PHONE NUMBERS LISTED FROM [facility] ER [facility]ISITS, BOTH ARE OUT OF SERVICE. CM WILL FOLLOW FOR NEEDS.
--- NOTE | 2021-04-12 14:13 | NUR ---
PT SITTING ON BED NO COMPLAINS, PT PLAN TO BE DISCHARGE,COVID TEST WAS DONE TODAY ALL SAFETY MEASURES ON PLACE. CALLS LIGHT WITHIN REACH
[2021-04-12 15:05] VITALS: BP 128/73
--- NOTE | 2021-04-12 15:20 | NUR ---
FULL REPORT LOTTIE TO NURSE RAISSA SALINAS FROM [facility]
--- NOTE | 2021-04-12 15:30 | NUR ---
PPT SITTING ON BED NO COMPLAINS,PT GOT TRANSFERED TO [facility], IV REMOVED SKIN INTACT, BLEEDING CONTROLLED.
== END 2021-04-12 15:30 | DRG 205 ==
LOC: MED 20:38 → MTU 04-09 01:39
PROVIDERS: ADMIT Family Medicine; ATTEND Family Medicine
DX: M94.0 Chondrocostal junction syndrome [Tietze] (principal); E43 Unspecified severe protein-calorie malnutrition; N17.0 Acute kidney failure with tubular necrosis; N13.2 Hydronephrosis with renal and ureteral calculous obstruction; I25.110 Atherosclerotic heart disease of native coronary artery with unstable angina pectoris; I31.3 Pericardial effusion (noninflammatory); Z68.1 Body mass index [BMI] 19.9 or less, adult; K44.9 Diaphragmatic hernia without obstruction or gangrene; D72.819 Decreased white blood cell count, unspecified; I12.9 Hypertensive chronic kidney disease with stage 1 through stage 4 chronic kidney disease, or unspecified chronic kidney disease; N18.30 Chronic kidney disease, stage 3 unspecified; E03.9 Hypothyroidism, unspecified; F03.90 Unspecified dementia, unspecified severity, without behavioral disturbance, psychotic disturbance, mood disturbance, and anxiety; N32.89 Other specified disorders of bladder; Z20.822 Contact with and (suspected) exposure to COVID-19; E87.6 Hypokalemia; Z86.718 Personal history of other venous thrombosis and embolism; Z98.61 Coronary angioplasty status; Z88.6 Allergy status to analgesic agent; Z88.0 Allergy status to penicillin; Z88.2 Allergy status to sulfonamides; Z79.01 Long term (current) use of anticoagulants; Z79.899 Other long term (current) drug therapy; I25.2 Old myocardial infarction
CPT/HCPCS: 36415; 71045; 71275; 72125; 72128; 72131; 76770; 80053; 80305; 81003; 82150; 83036; 83690; 83735; 83880; 84100; 84154; 84439; 84443; 84484; 85025; 85610; 85730; 87081; 93005; 97110; 97112; 97116; 97163-GP; 97530; 99285; J3420; Q0092; Q9967

== ENCOUNTER 2021-07-27 15:26 | Emergency (ER) | payer OTHER, BC ==
[~2021-07-27] VITALS: Ht 172.7 cm; Wt 68.0 kg
[~2021-07-27 15:26] MED LIST changes: -CLON0.5T PO; +IBUP-1842 PO; +KEP500 PO; +LEVO0.5S3 PO; -LEVO5TAB32 PO; -MEMA10TA PO; +MEMA5TAB PO; -OXCA150T28 PO; +RIVA15TA1 PO; -RIVA20TA PO
[2021-07-27 15:29] VITALS: BP 146/81
--- NOTE | 2021-07-27 15:40 | NUR ---
71/M BIBA FROM HOME. EMS STATES PATIENTS CALLED 911 STATING PATIENTS RIGHT ANKLE HAS BEEN RED AND TENDER, STATING PATIENT HAS HX OF DVTS AND SHE IS AFRAID HE MAY HAVE ANOTHER ONE DEVELOPING. PATIENT IS AWAKE AND ALERT AND ANSWERING QUESTIONS APPROPRIATELY AT BASE LINE. REPORTS 2/10 RIGHT ANKLE TENDERNESS WHEN TOUCHED, SOME REDNESS NOTED BILATERALLY TO LEGS. DENIES CP, SOB, ABDOMINAL PAIN, N/V/D.
--- NOTE | 2021-07-27 16:25 | NUR ---
ULTRASOUND AT BEDSIDE
[2021-07-27 17:46] VITALS: BP 138/77
--- NOTE | 2021-07-27 17:51 | NUR ---
Patient discharged with v/s stable. Written and verbal after care instructions given FOR CARE PLAN and explained. Patient verbalized understanding. PT W/C ASSISTED to car. All questions addressed prior to discharge. Advised to follow up with PMD.
== END 2021-07-27 17:51 | disposition home or self-care (01) ==
LOC: MED 15:26
DX: L53.9 Erythematous condition, unspecified (principal); F03.90 Unspecified dementia, unspecified severity, without behavioral disturbance, psychotic disturbance, mood disturbance, and anxiety; I10 Essential (primary) hypertension; G40.909 Epilepsy, unspecified, not intractable, without status epilepticus; E03.9 Hypothyroidism, unspecified; Z98.890 Other specified postprocedural states; Z79.899 Other long term (current) drug therapy; Z88.0 Allergy status to penicillin; Z88.2 Allergy status to sulfonamides; Z88.8 Allergy status to other drugs, medicaments and biological substances
CPT/HCPCS: 93970; 99284; Q0092

== ENCOUNTER 2021-10-02 02:39 | Emergency (ER) | payer OTHER, BC ==
[~2021-10-02] VITALS: Ht 162.6 cm; Wt 68.0 kg
[2021-10-02 02:43] VITALS: BP 128/74
--- NOTE | 2021-10-02 02:46 | NUR ---
PT PILO ARORAS. TAKEN TO BED 4
--- NOTE | 2021-10-02 02:46 | NUR ---
71 YO/M BIBA FROM HOME, PER [facility] PT CALLED [facility] B/C PT WAS HAVING R EYE PERIORBITAL SWELLING BEGINNING TODAY. PER [facility] DENIES PT HAVING ANY INJURIES. PT REPORTS COMING TO HOSPITAL FOR ONGOING BLURRY VISION WORSE TO R EYE X SEVERAL WEEKS, + SWELLING TO LOWER EYELID. PT DENIES ANY PAIN, OR INJURY TO FACE/EYE. NO TRAUMA NOTED, MINIMAL SWELLING NOTED TO LOWER EYELID. PUPILS AT 3MM PERRL. PT LAYING IN BED LIOCKED IN LOWEST POSITION W X2 SIDERAILS UP FOR PT SAFETY. VSS. BREATHING EVEN AND UNLABORED. NAD NOTED, WILL CONTINUE TO MONITOR. PMH:DEMENTIA, STEMI 2018 W STENT,EPILEPSY, L TEMPORAL LOBE REMOVAL, HYPOTHYROIDISM (PER [facility]) ALLERGIES: CODEINE, SULFA, PENICILLINS (PER [facility])
--- NOTE | 2021-10-02 03:22 | NUR ---
SPOKE W PT JEREMY. PER PT PT ALSO HAS HX OF ENLARGED PROSTATE. PT COMING IN FOR WATERY EYE DISCHARGE, AND SWELLING TO R LOWER EYE LID X1 WEEK. PT ALSO HAD SURGICAL LENSES PUT IN X6 YRS AGO. PT TOOK KEPPRA 500MG. CLONAZEPAM 0.5MG, LEVOTHYROXINA 75MCG, PREGABALIN 225MG, AND PLAVIX 75MG AT 0200. PT ALSO HAS VERY SLOW SPEECH PER BASELINE.
[2021-10-02] MEDS ORDERED: TOMOMETER 1 DEV DEV MC ONE (03:33)
--- NOTE | 2021-10-02 05:41 | NUR ---
NO CHANGES IN PT STATUS. VSS. NO PAIN. BREATHING EVEN AND UNLABORED. NAD NOTED, WILL CONTINUE TO MONITOR.
[2021-10-02 05:43] LABS: ANION GAP 11.4 (8-16); CARBON DIOXIDE 27.3 mmol/L (21-32); CREATININE 1.1 mg/dL (0.6-1.3); POTASSIUM 3.7 mmol/L (3.5-5.1); TOTAL BILIRUBIN 0.2 mg/dL (0.0-1.0)
[2021-10-02] MEDS: TETRACAINE HCL/PF 0.5% OPTH 4 ML BTL OP ONE (06:10)
[2021-10-02] MEDS: FLUORESCEIN OPTH STRIP 1 MG OP ONE (06:11)
--- NOTE | 2021-10-02 06:22 | NUR ---
PT TAKEN TO CT
[2021-10-02 06:35] LABS: BASOPHILS % (AUTO) 1.1 % (0.0-2.0); EOSINOPHILS # (AUTO) 0.3 K/uL (0-0.4); EOSINOPHILS % (AUTO) 6.9 % (0.0-4.0); HEMATOCRIT 48.4 % (36-52); HEMOGLOBIN 15.8 g/dL (12.0-18.0); LYMPHOCYTES # (AUTO) 1.3 K/uL (2.0-11.5); LYMPHOCYTES % (AUTO) 31.2 % (20.5-51.1); MEAN CORPUSCULAR HEMOGLOBIN 27 pg (27-31); MEAN CORPUSCULAR HGB CONC 33 g/dL (33-37); MEAN CORPUSCULAR VOLUME 82.3 fL (80-94); MONOCYTES # (AUTO) 0.4 K/uL (0.8-1.0); MONOCYTES % (AUTO) 9.6 % (1.7-9.3); NEUTROPHILS # (AUTO) 2.1 K/uL (1.8-7.7); NEUTROPHILS % (AUTO) 51.2 % (42.2-75.2); PLATELET COUNT (AUTO) 149 K/uL (140-450); RED BLOOD CELL COUNT(AUTO) 5.88 MIL/uL (4.20-6.10); RED CELL DISTRIBUTION WIDTH 15.2 % (11.6-13.7); WHITE BLOOD COUNT (AUTO) 4.1 K/uL (4.8-10.8)
--- NOTE | 2021-10-02 06:53 | NUR ---
PT RETURN FROM CT
--- NOTE | 2021-10-02 07:17 | NUR ---
Pt report given to SERENA MONCADA. Transfer of care at this time.
--- NOTE | 2021-10-02 07:30 | NUR ---
PTS AT BEDSIDE, UPDATED ON PLAN OF CARE. PTS VERY UPSET AND VERBALLY AGGRESSIVE WITH RN REGARDING CT RESULTS. PTS STATES "I AM SO TIRED AND I TAKE SEIZURE MEDICATION BUT YOU WOULDNT UNDERSTAND BECAUSE YOU ARE NOT ON SEIZURE MEDICATION". RN MADE AWARE SHE WILL HAVE ER MD SPEAK TO HER.
[2021-10-02] MEDS ORDERED: KETO5SOL7 RIGHT EYE (08:52)
[2021-10-02 09:06] VITALS: BP 108/67
== END 2021-10-02 09:06 | disposition home or self-care (01) ==
LOC: MED 02:39
DX: H53.131 Sudden visual loss, right eye (principal); R53.1 Weakness; F03.90 Unspecified dementia, unspecified severity, without behavioral disturbance, psychotic disturbance, mood disturbance, and anxiety; I10 Essential (primary) hypertension; E03.9 Hypothyroidism, unspecified; Z80.0 Family history of malignant neoplasm of digestive organs; Z88.2 Allergy status to sulfonamides; Z88.5 Allergy status to narcotic agent; Z79.899 Other long term (current) drug therapy
CPT/HCPCS: 36415; 70450; 70496; 70498; 80053; 84484; 85025; 93005; 99285; Q9967

== ENCOUNTER 2021-10-17 23:30 | Emergency (ER) | payer OTHER, BC ==
[~2021-10-17] VITALS: Ht 182.9 cm; Wt 81.6 kg
[~2021-10-17 23:30] MED LIST changes: +KETO5SOL7 RIGHT EYE
[2021-10-17 23:32] VITALS: BP 140/82
--- NOTE | 2021-10-17 23:52 | NUR ---
PT ERAN DAIGLE, VIA GURNEY TO BED 06.
[2021-10-18 00:24] LABS: BASOPHILS # (AUTO) 0.1 K/uL (0.00-0.22); BASOPHILS % (AUTO) 1.2 % (0.0-2.0); EOSINOPHILS # (AUTO) 0.4 K/uL (0-0.4); EOSINOPHILS % (AUTO) 8.1 % (0.0-4.0); HEMATOCRIT 39.9 % (36-52); HEMOGLOBIN 13.3 g/dL (12.0-18.0); LYMPHOCYTES # (AUTO) 1.6 K/uL (2.0-11.5); LYMPHOCYTES % (AUTO) 33.7 % (20.5-51.1); MEAN CORPUSCULAR HEMOGLOBIN 27 pg (27-31); MEAN CORPUSCULAR HGB CONC 33 g/dL (33-37); MEAN CORPUSCULAR VOLUME 81.7 fL (80-94); MONOCYTES # (AUTO) 0.5 K/uL (0.8-1.0); MONOCYTES % (AUTO) 10.1 % (1.7-9.3); NEUTROPHILS # (AUTO) 2.2 K/uL (1.8-7.7); NEUTROPHILS % (AUTO) 46.9 % (42.2-75.2); PLATELET COUNT (AUTO) 159 K/uL (140-450); RED BLOOD CELL COUNT(AUTO) 4.89 MIL/uL (4.20-6.10); RED CELL DISTRIBUTION WIDTH 14.6 % (11.6-13.7); WHITE BLOOD COUNT (AUTO) 4.8 K/uL (4.8-10.8)
[2021-10-18 00:45] LABS: ANION GAP 9.1 (8-16); CARBON DIOXIDE 26.3 mmol/L (21-32); POTASSIUM 3.4 mmol/L (3.5-5.1); TOTAL BILIRUBIN 0.2 mg/dL (0.0-1.0)
[2021-10-18] MEDS: NACL 0.9% 1,000 ML IV ONE (00:47)
--- NOTE | 2021-10-18 00:51 | NUR ---
PT'S OFELIA CALLED AND SPOKE WITH DR. SANTANA.
[2021-10-18 01:21] LABS: APPEARANCE,URINE SL CLOUDY (CLEAR); BILIRUBIN,URINE NEGATIVE (NEGATIVE); BLOOD, URINE 3+ (NEGATIVE); COLOR,URINE YELLOW (YELLOW); LEUKOCYTE ESTERASE ,URINE NEGATIVE (NEGATIVE); NITRITE, URINE NEGATIVE (NEGATIVE); PH,URINE 7.5 (5.0-9.0); UGLUCOSE NEGATIVE (NEGATIVE)
[2021-10-18 01:29] LABS: RBC,URINE 20-50 /HPF (0-5); WBC,URINE 0-5 /HPF (0-5)
[2021-10-18] MEDS ORDERED: NITR100C1 PO (03:53)
[2021-10-18] MEDS ORDERED: cefTRIAXone 1,000 MG VIAL ONE (04:00)
--- NOTE | 2021-10-18 04:50 | NUR ---
Pt was incontinent in urine. pt cleaned and regowned. skin intact.
--- NOTE | 2021-10-18 05:00 | NUR ---
spoke with pt's , Misti, over the phone and gave discharge instructions. Per Misti, pt's friend Cheryl Rajesh will diamond picker pt and will sign discharge paperwork.
--- NOTE | 2021-10-18 05:19 | NUR ---
Pt's friend Cheryl arrived and discharge paperwork given. Pt was able to stand and transfer self to wheelchair with assistance. Copies of results given to Cheryl along with discharge instructions.
[2021-10-18 05:21] VITALS: BP 145/71
--- NOTE | 2021-10-18 05:23 | NUR ---
Patient discharged with v/s stable. Written and verbal after care instructions given and explained. Patient alert, oriented and verbalized understanding of instructions. Wheel Chair Assisted with by pt's friend, Cheryl. All questions addressed prior to discharge. ID band removed. Patient advised to follow up with PMD. Rx of Nitrofurantoin given. Patient educated on indication of medication including possible reaction and side effects. Opportunity to ask questions provided and answered.
== END 2021-10-18 05:19 | disposition home or self-care (01) ==
LOC: MED 23:30
DX: N39.0 Urinary tract infection, site not specified (principal); R53.1 Weakness; I10 Essential (primary) hypertension; F03.90 Unspecified dementia, unspecified severity, without behavioral disturbance, psychotic disturbance, mood disturbance, and anxiety; E03.9 Hypothyroidism, unspecified; Z79.899 Other long term (current) drug therapy; Z88.0 Allergy status to penicillin; Z88.2 Allergy status to sulfonamides; Z88.5 Allergy status to narcotic agent
CPT/HCPCS: 36415; 71045; 80053; 81001; 82550; 84484; 85025; 87086; 87426; 87804; 93005; 96361; 96365; 99285; J0696; J7030; Q0092

== ENCOUNTER 2022-11-03 22:11 | Inpatient (IN) | payer OTHER, BC ==
[~2022-11-03] VITALS: Ht 175.3 cm; Wt 68.0 kg
[~2022-11-03 22:11] MED LIST changes: +CHOL100084 PO; +KETO5DRO68 RIGHT EYE; -KETO5SOL7 RIGHT EYE; +NITR100C1 PO; -VITD1000 PO; -ZONI100C22 PO; +ZONI100C97 PO
[2022-11-03 22:15] VITALS: BP 110/69
--- NOTE | 2022-11-03 22:16 | NUR ---
PT PILO BLS. TAKEN TO BED 8
[2022-11-03] MEDS ORDERED: NACL 0.9% 1,000 ML IV ONE (22:35)
[2022-11-03] MEDS ORDERED: AMPICILLIN/SULBACTAM 3 GM in NACL 0.9% 100 ML IV ONE (22:35)
[2022-11-03] MEDS ORDERED: SODI650T2 PO (22:42)
[2022-11-03] MEDS ORDERED: SYN.075 PO (22:42)
[2022-11-03] MEDS ORDERED: DOCU-61 PO (22:42)
[2022-11-03] MEDS ORDERED: LEVO5TAB32 PO (22:42)
[2022-11-03] MEDS ORDERED: TAMS0.4C96 PO (22:42)
[2022-11-03] MEDS ORDERED: ZINC30TA PO (22:42)
[2022-11-03] MEDS ORDERED: PREG225C PO (22:42)
[2022-11-03] MEDS ORDERED: CALC625T27 PO (22:42)
[2022-11-03] MEDS ORDERED: MEMA5TAB PO (22:42)
[2022-11-03] MEDS ORDERED: OXCA300T PO (22:42)
[2022-11-03] MEDS ORDERED: VENL150C4 PO (22:42)
[2022-11-03] MEDS ORDERED: ROSU5TAB PO (22:42)
[2022-11-03] MEDS ORDERED: CLON0.5T PO (22:42)
[2022-11-03] MEDS ORDERED: FAMO-90 PO (22:42)
[2022-11-03] MEDS ORDERED: ZONI100C97 PO (22:42)
[2022-11-03] MEDS ORDERED: RISP0.5T3 PO (22:42)
--- NOTE | 2022-11-03 22:45 | NUR ---
Med-rec reviewed.
--- NOTE | 2022-11-03 22:51 | NUR ---
X-Ray at bedside.
[2022-11-03] MEDS ORDERED: AMPICILLIN/SULBACTAM 3 GM VIAL ONE (22:57)
[2022-11-03 23:00] LABS: BASOPHILS # (AUTO) 0.1 K/uL (0.00-0.22); BASOPHILS % (AUTO) 1.2 % (0.0-2.0); EOSINOPHILS # (AUTO) 0.5 K/uL (0-0.4); EOSINOPHILS % (AUTO) 6.5 % (0.0-4.0); HEMATOCRIT 45.6 % (36-52); HEMOGLOBIN 15.3 g/dL (12.0-18.0); LYMPHOCYTES # (AUTO) 1.5 K/uL (2.0-11.5); LYMPHOCYTES % (AUTO) 20.3 % (20.5-51.1); MEAN CORPUSCULAR HEMOGLOBIN 29 pg (27-31); MEAN CORPUSCULAR HGB CONC 33 g/dL (33-37); MEAN CORPUSCULAR VOLUME 85.4 fL (80-94); MONOCYTES # (AUTO) 0.7 K/uL (0.8-1.0); MONOCYTES % (AUTO) 9.1 % (1.7-9.3); NEUTROPHILS # (AUTO) 4.5 K/uL (1.8-7.7); NEUTROPHILS % (AUTO) 62.9 % (42.2-75.2); PLATELET COUNT (AUTO) 221 K/uL (140-450); RED BLOOD CELL COUNT(AUTO) 5.34 MIL/uL (4.20-6.10); RED CELL DISTRIBUTION WIDTH 14.7 % (11.6-13.7); WHITE BLOOD COUNT (AUTO) 7.2 K/uL (4.8-10.8)
[2022-11-03 23:16] LABS: ALBUMIN 3.5 g/dL (3.4-5.0); ANION GAP 12.4 (8-16); CARBON DIOXIDE 27.9 mmol/L (21-32); CREATININE 1.3 mg/dL (0.6-1.3); POTASSIUM 3.3 mmol/L (3.5-5.1); TOTAL BILIRUBIN 0.3 mg/dL (0.0-1.0)
--- NOTE | 2022-11-03 23:30 | NUR ---
72 Y/O M BIB [facility] FROM HOME PRESENTS WITH L LEG /FOOT PAIN 01/11. L FOOT APPEARS SWOLLEN AND PAINFUL TO TOUCH. PT STATES HE HAS PAIN IN L FOOT. OF PT STATED HE FELL 3X TODAY AMD HAS A PARTIAL TORN LIGAMENT IN R FOOT. STATED PT HAS SOME WHEEZING AND COUGHING THATS UNUSUAL. ACCORDING TO , PT HAS NO BM X10 DAYS, STOOL SOFTERNS AND PRUNE JUICE WITH NO RELIEF. PT A&OX3, SKIN INTACT, RESPIRATIONS EVEN AND UNLABORED. PMH- DEMENTIA. SEE CHART ALLERGIES- PENICILLINS, SULFA ANTIBIOTICS- SEE CHART MEDICATIONS- SEE CHART
--- NOTE | 2022-11-03 23:37 | NUR ---
PT CALLED, UPDATED. CALL BACK NUMBER [phone] JAMEL.
--- NOTE | 2022-11-04 00:02 | NUR ---
Patient returned back from CT scan.
--- NOTE | 2022-11-04 00:07 | NUR ---
ULTRASOUND AT BEDSIDE
--- NOTE | 2022-11-04 01:10 | NUR ---
STRAIGHT CATH SUCCESSFUL, URINE COLLECTED AND SENT TO LAB
--- NOTE | 2022-11-04 01:25 | NUR ---
COVID-19 swab collected and sent to lab.
--- NOTE | 2022-11-04 01:54 | NUR ---
Spoke with patient's family (-Karol) to update patient's status.
[2022-11-04 02:03] LABS: APPEARANCE,URINE CLEAR (CLEAR); BILIRUBIN,URINE NEGATIVE (NEGATIVE); BLOOD, URINE 3+ (NEGATIVE); COLOR,URINE YELLOW (YELLOW); LEUKOCYTE ESTERASE ,URINE NEGATIVE (NEGATIVE); NITRITE, URINE NEGATIVE (NEGATIVE); UGLUCOSE NEGATIVE (NEGATIVE)
[2022-11-04 02:24] LABS: RBC,URINE TOO NUMEROUS TO COUN /HPF (0-5); WBC,URINE 0-5 /HPF (0-5)
[2022-11-04] MEDS ORDERED: cefTRIAXone 1,000 MG VIAL ONE ×2 (03:18→05:15)
--- NOTE | 2022-11-04 04:36 | NUR ---
pt awake and alert. tolerating food well. awaiting admission
--- NOTE | 2022-11-04 07:30 | NUR ---
Pt report given to Archie LYONS. Transfer of care at this time.
--- NOTE | 2022-11-04 08:38 | NUR ---
Patient will be admitted to care of PACO BRADSHAW. Admited to TELEMETRY. Will go to room 107A. Belongings list completed. Report to ROBERTO LYONS.
[2022-11-04 09:00] VITALS: BP 164/96
--- NOTE | 2022-11-04 09:00 | NUR ---
RECEIVED REPORT FROM ER NURSE FOR CONTINUITY OF CARE. PT WAS STABLE UPON TRANSPORT. PT IS A&OX3 BUT GET CONFUSED AT TIMES, SINUS RHYTHM ON THE MONITOR, ON ROOM AIR, AND IS ON BEDREST. PT HAS AN 22G IN HIS RAC THAT IS PATENT AND INTACT. HIS SKIN IS INTACT BUT HAS SOME BRUISING ON UPPER EXTREMITIES. ALL SAFETY MEASURES IN PLACE INCLUDING BED IN LOW POSITION AND SIDE RAILS PADDED.
--- NOTE | 2022-11-04 09:05 | NUR ---
RECEIVED CALLED FROM PTS AND WE WENT OVER PTS MED LIST AND MADE SURE IT WAS CORRECT. TOLD HER THAT THE DR WAS NOT IN YET.
[2022-11-04 09:10] LABS: ANION GAP 16.2 (8-16); CARBON DIOXIDE 21.7 mmol/L (21-32); POTASSIUM 3.9 mmol/L (3.5-5.1)
--- NOTE | 2022-11-04 09:13 | NUR ---
I MESSAGED THE DR ABOUT THE 'S CONCERN WITH PT NOT RECEIVING MORNING MEDICATION YET.
[2022-11-04] MEDS: NACL 0.9% 1,000 ML IV SCH (10:30)
[2022-11-04] MEDS ORDERED: POTASSIUM CHLORIDE 10 MEQ TABER PO PRN (10:30)
[2022-11-04] MEDS ORDERED: MAG SULF 2000 MG/WATER PREMIX 50 ML IV PRN (10:30)
[2022-11-04] MEDS ORDERED: ONDANSETRON 4 MG/2 ML VIAL IVP PRN (10:30)
[2022-11-04] MEDS ORDERED: ACETAMINOPHEN 325 MG TAB PO PRN (10:30)
--- NOTE | 2022-11-04 11:14 | NUR ---
NOTIFIED THAT PT HAS BLOOD IN HIS URINE.
[2022-11-04 12:00] VITALS: BP 174/99
--- NOTE | 2022-11-04 12:15 | NUR ---
NOTIFIED DR OF PTS BP IS 174/99
--- NOTE | 2022-11-04 13:00 | NUR ---
ASKED VERBALLY IF SHE WANTED TO GIVE A DOES OF KEPPRA TO THE PT TO PREVENT SEIZURES AND SHE STATED NOT AT THIS TIME.
--- NOTE | 2022-11-04 13:22 | NUR ---
PTS CALLED TO CHECK ON PT AND IF HE GET HIS MEDICATION YET. NOTIFIED HER THAT HIS MED HAVE BEEN SCHEDULED FOR CERTAIN TIMES AND HE WILL GET THEM WHEN THEY ARE DUE. ALSO THAT WE ARE DOING ALL THAT WE CAN TO PREVENT HIM FROM HAVING A SEIZURE AT THIS TIME AND ALL SAFETY PRECAUTIONS ARE TAKEN.
--- NOTE | 2022-11-04 13:30 | NUR ---
REMINDED DR OF BP AND RECEIVED ORDER FO HYDRALAZINE 10 MG PRN Q6 FOR SBP ABOVE 160.
[2022-11-04 13:46] LABS: PROTHROMBIN TIME 11.4 secs (10.8-13.4)
[2022-11-04 13:59] LABS: AMYLASE 80 U/L (25-115); CHOL/HDL RATIO 1.6 (1-4.5); FREE T4 (FREE THYROXINE) 0.81 ng/dL (0.76-1.46); HDL CHOLESTEROL 68 mg/dL (40-60); LDL (CALC) 37 mg/dL (60-100); LIPASE 306 U/L (73-393); THYROID STIMULATING HORMONE 1.16 uIU/mL (0.34-3.74); TRIGLYCERIDES 30 mg/dL (30-150)
[2022-11-04] MEDS ORDERED: hydrALAZINE 20 MG/ML VIAL IVP PRN (14:15)
--- NOTE | 2022-11-04 15:54 | NUR ---
PATIENT HAS BEEN SCREENED AND CATEGORIZED MODERATE NUTRITION RISK. PATIENT WILL BE SEEN WITHIN 3-5 DAYS OF ADMISSION. REVIEWED BY ALICIA PARIS RD
[2022-11-04 16:00] VITALS: BP 158/90
--- NOTE | 2022-11-04 17:19 | NUR ---
CALLED AGAIN ASKING IF PT HAD RECEIVED ANY MEDICATION AND I INFORMED HER THAT I WAS IN ANOTHER PTS ROOM AND WOULD CALL HER BACK.
--- NOTE | 2022-11-04 17:30 | NUR ---
I GAVE THE A CALL BACK AND GOT A VOICEMAIL. I LEFT HER A MESSAGE ABOUT WHAT WAS GOING ON.
--- NOTE | 2022-11-04 18:37 | NUR ---
ASKED THE DR IF WE COULD START PT ON A DIET. PT WAS ON CARDIAC DIET WITH NO SUGAR AT HOME. Addendum: 11/04/22 at 1839 by Praveena Crowe RN I ASKED THE DR THIS AT 1124 THIS MORNING
--- NOTE | 2022-11-04 19:30 | NUR ---
RECEIVED REPORT FROM DAY SHIFT NURSE ROBERTO FOR CONTINUITY OF CARE. PATIENT IS A&O X 1-3. PATIENT IS ON ROOM AIR, BREATHING IS NORMAL WITH SYMMETRICAL RISE AND FALL OF CHEST. PATIENT'S IV IS A 22G RAC, RUNNING NS AT 50. PATIENT IS LYING IN SEMI-FOWLERS POSITION. BED IS IN LOWEST POSITION, WHEELS LOCKED, CALL LIGHT IN PLACE. WILL CONTINUE TO OBSERVE PATIENT.
--- NOTE | 2022-11-04 19:34 | NUR ---
ENDORSED PT TO TRANSIT DEPARTMENT CLERK NURSE PAUL Gambino FOR CONTINUITY OF CARE. PT STABLE AT THIS TIME.
[2022-11-04 20:00] VITALS: BP 141/93
[2022-11-04] MEDS ORDERED: KETOTIFEN FUMARATE RIGHT EYE SCH (21:00)
[2022-11-04] MEDS ORDERED: PREGABALIN 225 MG PO SCH (21:00)
[2022-11-04] MEDS ORDERED: LATANOPROST OP SCH (21:00)
[2022-11-04] MEDS ORDERED: PREGABALIN 25 MG CAP ONE (21:32)
[2022-11-04] MEDS ORDERED: PREGABALIN 50 MG CAP ONE (21:33)
[2022-11-04] MEDS: OXcarbazepine 150 MG TAB PO SCH (21:36)
[2022-11-04] MEDS: SODIUM BICARBONATE 650 MG TAB PO SCH (21:38)
[2022-11-04] MEDS: levETIRAcetam 500 MG TAB PO SCH (21:39)
[2022-11-04] MEDS: DOCUSATE SODIUM 100 MG GELCAP PO SCH (21:39)
[2022-11-04] MEDS: PREGABALIN PO SCH ×2 (21:40)
[2022-11-04] MEDS: LATANOPROST 0.005% OP 2.5 ML BTL OP SCH (21:46)
--- NOTE | 2022-11-04 22:15 | NUR ---
SPOKE WITH PATIENT'S (JAMEL) ON PHONE. SHE INQUIRED ABOUT PATIENT'S MEDICATION. WENT OVER MEDS WITH ; SHE STATED THAT THERE ARE SOME MEDS MISSING, BUT I WENT THROUGH DAYTIME MEDS; MISSING MEDICATIONS WERE LISTED FOR THEN. ASKED TO BE NOTIFIED IF PATIENT HAS A SEIZURE AND GAVE ME HER CELL NUMBER ([phone]). ADMINISTERED MEDICATIONS TO PATIENT (PATIENT PREFERS TO RECEIVE 5 PILLS AT A TIME); PATIENT TOLERATED WELL WITHOUT DIFFICULTY OF SWALLOWING. WILL CONTINUE TO OBSERVE PATIENT.
--- NOTE | 2022-11-04 23:08 | NUR ---
PATIENT ASKED ME TO CALL HIS SO HE CAN SPEAK TO HER. CALLED PATIENT'S AND THEY SPOKE ON THE PHONE. PATIENT'S CALLED ME AND INFORMED ME THAT HE SEEMS AGITATED AND SHE ISN'T ABLE TO CALM HIM DOWN. PATIENT'S IS WORRIED HE WILL HAVE A SEIZURE; I TOLD HER I WOULD TALK TO HIM AND SEE IF I CAN CALM HIM DOWN. SPOKE WITH PATIENT; PATIENT STATED HE WANTED TO LEAVE. I EXPLAINED TO PATIENT THAT HE'S SICK RIGHT NOW AND WE NEED TO HELP HIM GET BETTER. PATIENT STILL FELT LIKE HE WANTED TO LEAVE. I ASKED PATIENT IF HE COULD SLEEP HERE TONIGHT AND THEN HE CAN TALK TO THE DOCTOR IN THE MORNING ABOUT HIS ILLNESS AND WHEN HE WOULD BE ABLE TO LEAVE. PATIENT SEEMED OKAY WITH THAT, AND TOLD ME HE THINKS HE PEED AND POOPED. I TOLD HIM THAT WAS OKAY, I CAN CHANGE HIM. PATIENT WAS CHANGED WITH ASSISTANCE FROM SERENA JUAREZ AND BRAD CANDELARIA. PATIENT HAD ONLY VOIDED, NO BM HAD OCCURRED. PATIENT WAS CLEANED AND NEW DIAPER WAS APPLIED TO PATIENT. PATIENT THANKED ME AND SAID HE WOULD GO TO SLEEP. I TOLD HIM TO CALL ME IF HE NEEDS ME.
[2022-11-05] VITALS: BP 146/98
--- NOTE | 2022-11-05 02:20 | NUR ---
PATIENT CALLED AND STATED HE HAD URINATED AGAIN. CHECKED PATIENT, AND PATIENT HAD VOIDED BUT NO BM. CHANGED PATIENT WITH ASSISTANCE FROM SERENA ARGUETA. PATIENT WAS CLEANED AND NEW CHUCKS DIAPER WAS APPLIED. SCANT AMOUNT OF BLOOD WAS PRESENT IN DIAPER. PATIENT TOLERATED CHANGING WELL. ENCOURAGED PATIENT TO GO TO SLEEP, PATIENT STATED HE WOULD. PATIENT'S BREATHING IS NORMAL WITH SYMMETRICAL RISE AND FALL OF CHEST. WILL CONTINUE TO OBSERVE PATIENT.
[2022-11-05 04:00] VITALS: BP 155/103
[2022-11-05] MEDS ORDERED: ceFAZolin 1,000 MG VIAL ONE (05:24)
[2022-11-05] MEDS: LEVOTHYROXINE 0.075 MG TAB PO SCH (05:35)
--- NOTE | 2022-11-05 06:25 | NUR ---
PATIENT CALLED AND STATED HE HAD URINATED AGAIN. PATIENT HAD VOIDED WITH NO BM. PATIENT WAS CHANGED WITH THE ASSISTANCE OF BRAD MILLER. NEW CHUCKS DIAPER WAS APPLIED. PATIENT TOLERATED CHANGE WELL. WILL CONTINUE TO OBSERVE PATIENT.
[2022-11-05] MEDS: NACL 0.9% 1,000 ML IV SCH (06:30)
--- NOTE | 2022-11-05 07:05 | NUR ---
RECEIVED REPORT FROM FORDER OPERATOR NURSE FOR CONTINUITY OF CARE. PT STABLE AT THIS TIME.
[2022-11-05 07:14] LABS: BASOPHILS # (AUTO) 0.1 K/uL (0.00-0.22); BASOPHILS % (AUTO) 0.9 % (0.0-2.0); EOSINOPHILS # (AUTO) 0.3 K/uL (0-0.4); EOSINOPHILS % (AUTO) 4.7 % (0.0-4.0); HEMATOCRIT 42.2 % (36-52); HEMOGLOBIN 14.2 g/dL (12.0-18.0); LYMPHOCYTES # (AUTO) 1.4 K/uL (2.0-11.5); LYMPHOCYTES % (AUTO) 21.3 % (20.5-51.1); MEAN CORPUSCULAR HEMOGLOBIN 28 pg (27-31); MEAN CORPUSCULAR HGB CONC 34 g/dL (33-37); MEAN CORPUSCULAR VOLUME 84.1 fL (80-94); MONOCYTES # (AUTO) 0.6 K/uL (0.8-1.0); MONOCYTES % (AUTO) 9.6 % (1.7-9.3); NEUTROPHILS # (AUTO) 4.1 K/uL (1.8-7.7); NEUTROPHILS % (AUTO) 63.5 % (42.2-75.2); PLATELET COUNT (AUTO) 228 K/uL (140-450); RED BLOOD CELL COUNT(AUTO) 5.02 MIL/uL (4.20-6.10); RED CELL DISTRIBUTION WIDTH 14.9 % (11.6-13.7); WHITE BLOOD COUNT (AUTO) 6.4 K/uL (4.8-10.8)
[2022-11-05 07:18] LABS: ANION GAP 14.6 (8-16); CARBON DIOXIDE 20.7 mmol/L (21-32); CREATININE 0.8 mg/dL (0.6-1.3); POTASSIUM 3.3 mmol/L (3.5-5.1)
--- NOTE | 2022-11-05 07:34 | NUR ---
ENDORSED TO DAY SHIFT NURSE ROBERTO FOR CONTINUITY OF CARE. PATIENT IS STABLE.
[2022-11-05 07:55] LABS: MAGNESIUM 1.8 mg/dL (1.8-2.4); PHOSPHORUS 2.5 mg/dL (2.5-4.9)
[2022-11-05 08:00] VITALS: BP 121/88
[2022-11-05] MEDS: VITAMIN E 400 IU CAPLF PO SCH (09:00)
[2022-11-05] MEDS ORDERED: ZONISAMIDE 400 MG PO SCH (09:00)
[2022-11-05] MEDS ORDERED: ROSUVASTATIN CALCIUM 5 MG PO SCH (09:00)
[2022-11-05] MEDS ORDERED: LEVOCETIRIZINE DIHYDROCHLORIDE 5 MG PO SCH (09:00)
[2022-11-05] MEDS ORDERED: ZINC GLUCONATE 30 MG PO SCH (09:00)
[2022-11-05] MEDS ORDERED: DOCUSATE SODIUM 100 MG GELCAP PO SCH (09:00)
[2022-11-05] MEDS ORDERED: PREGABALIN 25 MG CAP ONE ×2 (09:17→21:24)
[2022-11-05] MEDS ORDERED: PREGABALIN 50 MG CAP ONE ×2 (09:17→21:24)
[2022-11-05] MEDS: PREGABALIN PO SCH ×4 (09:36→21:31)
[2022-11-05] MEDS: VENLAFAXINE XR 75 MG CAPER PO SCH (09:36)
[2022-11-05] MEDS: DOCUSATE SODIUM 100 MG GELCAP PO SCH ×2 (09:37→21:32)
[2022-11-05] MEDS: clonazePAM 0.5 MG TAB PO SCH (09:38)
[2022-11-05] MEDS: ZINC SULF 220 MG CAP PO SCH (09:39)
[2022-11-05] MEDS: PANTOPRAZOLE 40 MG INJ VIAL IVP SCH (09:39)
[2022-11-05] MEDS: CLOPIDOGREL 75 MG TAB PO SCH (09:40)
[2022-11-05] MEDS: OXcarbazepine 150 MG TAB PO SCH ×2 (09:42→21:32)
[2022-11-05] MEDS: ATORVASTATIN 20 MG TAB PO SCH (09:42)
[2022-11-05] MEDS: TAMSULOSIN 0.4 MG CAP PO SCH (09:42)
[2022-11-05] MEDS: LORATADINE 10 MG TAB PO SCH (09:43)
[2022-11-05] MEDS: MEMANTINE 10 MG TAB PO SCH (09:45)
[2022-11-05] MEDS: FAMOTIDINE 20 MG TAB PO SCH (09:45)
[2022-11-05] MEDS: SODIUM BICARBONATE 650 MG TAB PO SCH ×2 (09:45→21:33)
[2022-11-05] MEDS: levETIRAcetam 500 MG TAB PO SCH ×2 (09:45→21:32)
[2022-11-05] MEDS: risperiDONE 1 MG TAB PO SCH (09:47)
[2022-11-05] MEDS: ZONISAMIDE 100 MG CAP PO SCH (09:47)
[2022-11-05] MEDS: CYANOCOBALAMIN 100 MCG TAB PO SCH (09:58)
[2022-11-05 12:00] VITALS: BP 152/80
--- NOTE | 2022-11-05 12:32 | NUR ---
RECEIVED CALL FROM PT CHECKING HOW HE IS DOING. INFORMED HER THAT HE RECEIVED HIS MORNING MEDICATION. SHE ASKED ME IF THE PATIENT HAD A BM AND I STATED I WAS NOR AWARE AT THAT TIME. SHE EXPRESSED HER CONCERN AND I LET HER KNOW THAT I WOULD NOTIFY THE DR. SHE ALSO ASKED IF THE DR COULD GIVE HER A CALL AND I STATED I WOULD PASS ALONG HER NUMBER.
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
[2022-11-05 16:00] VITALS: BP 106/66
--- NOTE | 2022-11-05 17:55 | NUR ---
MESSAGED THAT PT HAS NOT HAD A BOWEL MOVEMENT IN THE LAST TWO DAY AND THE ALSO STATED THAT HE HAS NOT GONE FOR OVER A WEEK AT HOME. RESPONDED WITH AN ORDER FOR LACTULOSE ONCE A DAY TO SEE IF THAT WOULD HELP.
--- NOTE | 2022-11-05 19:43 | NUR ---
ENDORSED PT TO DIRECTOR LIFE INSURANCE NURSE FOR CONTINUITY OF CARE. PT STABLE AT THIS TIME.
--- NOTE | 2022-11-05 19:45 | NUR ---
RECEIVED REPORT FROM DAY SHIFT NURSE FOR CONTINUITY OF CARE. PT STABLE AT THIS TIME. PT AWAKE, ALERT AND ORIENTED X 3. BREATHING EVEN AND UNLABORED, ON ROOM AIR. IV ON L AC G22, RUNNING D5.45 NS @50MLS/HR. NO S/SX OF DISTRESS AT THIS TIME. ALL PRECAUTIONS IN PLACE. CALL LIGHT WITHIN REACH.WILL CONTINUE TO MONITOR.
[2022-11-05 20:00] VITALS: BP 99/75
[2022-11-05] MEDS: LATANOPROST 0.005% OP 2.5 ML BTL OP SCH (21:29)
--- NOTE | 2022-11-05 22:00 | NUR ---
SCHEDULED MEDICATIONS GIVEN. PT TOLERATED WELL. WILL CONTINUE TO MONITOR.
[2022-11-06] VITALS: BP 142/83
--- NOTE | 2022-11-06 01:30 | NUR ---
PT ASLEEP THIS TIME. PT HAS NO S/SX OF DISTRESS. PT'S BREATHING EVEN AND UNLABORED. ALL PRECAUTIONS IN PLACE. CALL LIGHT WITHIN REACH. WILL CONTINUE TO MONITOR.
--- NOTE | 2022-11-06 01:55 | NUR ---
PT HAD A LARGE BOWEL MOVEMENT.NO BLOOD SEEN ON STOOL. PT CLEANED AND REPOSITIONED FOR COMFORT. ALL PRECAUTIONS IN PLACE .CALL LIGHT WITHIN REACH. WILL CONTINUE TO MONITOR.
[2022-11-06] MEDS: NACL 0.9% 1,000 ML IV SCH ×2 (02:30→22:15)
[2022-11-06 04:00] VITALS: BP 145/75
[2022-11-06] MEDS: LEVOTHYROXINE 0.075 MG TAB PO SCH (06:18)
[2022-11-06 06:39] LABS: BASOPHILS # (AUTO) 0.1 K/uL (0.00-0.22); BASOPHILS % (AUTO) 1.1 % (0.0-2.0); EOSINOPHILS # (AUTO) 0.4 K/uL (0-0.4); EOSINOPHILS % (AUTO) 5.5 % (0.0-4.0); HEMOGLOBIN 13.5 g/dL (12.0-18.0); LYMPHOCYTES # (AUTO) 1.6 K/uL (2.0-11.5); LYMPHOCYTES % (AUTO) 23.9 % (20.5-51.1); MEAN CORPUSCULAR HEMOGLOBIN 28 pg (27-31); MEAN CORPUSCULAR HGB CONC 34 g/dL (33-37); MEAN CORPUSCULAR VOLUME 83.5 fL (80-94); MONOCYTES # (AUTO) 0.6 K/uL (0.8-1.0); NEUTROPHILS # (AUTO) 3.9 K/uL (1.8-7.7); NEUTROPHILS % (AUTO) 60.5 % (42.2-75.2); PLATELET COUNT (AUTO) 185 K/uL (140-450); RED BLOOD CELL COUNT(AUTO) 4.78 MIL/uL (4.20-6.10); RED CELL DISTRIBUTION WIDTH 14.7 % (11.6-13.7); WHITE BLOOD COUNT (AUTO) 6.5 K/uL (4.8-10.8)
--- NOTE | 2022-11-06 06:39 | NUR ---
PT IS STABLE. NO ACUTE EVENTS THROUGHOUT THE NIGHT. NO S/SX OF DISTRESS OF THE MOMENT. NO COMPLAINS OF PAIN. ALL PRECAUTIONS IN PLACE. CALL LIGHT WITHIN REACH. WILL ENDORSE TO DAY SHIFT NURSE.
[2022-11-06 06:51] LABS: ANION GAP 13.3 (8-16); CARBON DIOXIDE 23.2 mmol/L (21-32); CREATININE 0.9 mg/dL (0.6-1.3); POTASSIUM 3.5 mmol/L (3.5-5.1)
[2022-11-06 07:00] LABS: MAGNESIUM 1.7 mg/dL (1.8-2.4); PHOSPHORUS 2.3 mg/dL (2.5-4.9)
--- NOTE | 2022-11-06 07:30 | NUR ---
RECEIVED REPORT FROM INDUCTION COORDINATION ENGINEER FOR CONTINUITY OF CARE. PATIENT LYING DOWN IN BED, NO DISTRESS NOTED. DENIES ANY PAIN. IV SITE INTACT, PATENT, INFUSING IVF PER MD ORDERS. REVIEWED PLAN OF CARE WITH PATIENT. SAFEY MEASURES IN PLACE, CALL LIGHT WITHIN REACH. WILL CONTINUE TO MONITOR.
[2022-11-06 08:00] VITALS: BP 123/83
[2022-11-06] MEDS ORDERED: PREGABALIN 25 MG CAP ONE ×2 (09:06→20:09)
[2022-11-06] MEDS ORDERED: PREGABALIN 50 MG CAP ONE ×2 (09:07→20:10)
[2022-11-06] MEDS: OXcarbazepine 150 MG TAB PO SCH ×2 (09:10→20:33)
[2022-11-06] MEDS: VENLAFAXINE XR 75 MG CAPER PO SCH (09:10)
[2022-11-06] MEDS: clonazePAM 0.5 MG TAB PO SCH (09:11)
[2022-11-06] MEDS: CLOPIDOGREL 75 MG TAB PO SCH (09:12)
[2022-11-06] MEDS: PREGABALIN PO SCH ×2 (09:12)
[2022-11-06] MEDS: levETIRAcetam 500 MG TAB PO SCH ×2 (09:13→20:32)
[2022-11-06] MEDS: LORATADINE 10 MG TAB PO SCH (09:13)
[2022-11-06] MEDS: ATORVASTATIN 20 MG TAB PO SCH (09:14)
[2022-11-06] MEDS: MEMANTINE 10 MG TAB PO SCH (09:14)
[2022-11-06] MEDS: FAMOTIDINE 20 MG TAB PO SCH (09:14)
[2022-11-06] MEDS: SODIUM BICARBONATE 650 MG TAB PO SCH ×2 (09:15→20:33)
[2022-11-06] MEDS: risperiDONE 1 MG TAB PO SCH (09:15)
[2022-11-06] MEDS: DOCUSATE SODIUM 100 MG GELCAP PO SCH ×2 (09:15→20:32)
[2022-11-06] MEDS: ZINC SULF 220 MG CAP PO SCH (09:16)
[2022-11-06] MEDS: TAMSULOSIN 0.4 MG CAP PO SCH (09:16)
[2022-11-06] MEDS: LACTULOSE 20 GM/30 ML UDC PO SCH (09:19)
[2022-11-06] MEDS: ZONISAMIDE 100 MG CAP PO SCH (09:20)
[2022-11-06] MEDS: VITAMIN E 400 IU CAPLF PO SCH (09:21)
[2022-11-06] MEDS: CYANOCOBALAMIN 100 MCG TAB PO SCH (09:25)
[2022-11-06] MEDS: PANTOPRAZOLE 40 MG INJ VIAL IVP SCH (09:25)
--- NOTE | 2022-11-06 09:28 | NUR ---
SCHEDULED MEDICATIONS DUE GIVEN. WILL CONTINUE TO MONITOR.
[2022-11-06] MEDS ORDERED: LEVO-481 PO (10:58)
--- NOTE | 2022-11-06 11:25 | NUR ---
RECEIVED ORDER OF HOSPICE JACK. DR DIAL SPOKE WITH [phone] WHO WAS AGREEABLE WITH HOSPICE. FAXED ALL PAPERWORK TO THE [facility] . WILL FOLLOW UP ONCE FAX CONFIRMATION IS RECEIVED. Addendum: 11/06/22 at 1158 by ROGER REINA CM PATIENT WAS ACCEPTED BY THE [facility] THEY ARE RUNNING ELIGIBILITY AND THEN WILL BE CONTACTING THE FAMILY DIRECTLY. JEREMY IS AWARE OF THE ABOVE INFORMATION.
[2022-11-06 12:00] VITALS: BP 125/80
--- NOTE | 2022-11-06 13:14 | NUR ---
SCHEDULED MEDICATIONS DUE GIVEN. WILL CONTINUE MONITOR.
[2022-11-06 16:00] VITALS: BP 147/77
--- NOTE | 2022-11-06 18:03 | NUR ---
DECATUR FITNESS SUPERVISOR ON UNIT EVALUATING PATIENT. ANSWERED ALL OF ALEC'S QUESTIONS. ALEC TALKED TO [facility]EARCH CENTER PARTNER ZAKIA. HE WILL FOLLOW-UP WITH [facility] TOMORROW FOR DISCHARGE.
--- NOTE | 2022-11-06 19:15 | NUR ---
GAVE REPORT TO SHIRRING MACHINE OPERATOR NURSE FOR CONTINUITY OF CARE.
--- NOTE | 2022-11-06 19:20 | NUR ---
RECEIVED PATIENT LYING ON THE BED, IS AWAKE, ALERT X3, IN NO SIGNS OF ACUTE DISTRESS, PATIENT DENIES PAIN/DISCOMFORT. ALL SAFETY MEASURES IN PLACE.
[2022-11-06 20:00] VITALS: BP 91/63
[2022-11-06] MEDS: LATANOPROST 0.005% OP 2.5 ML BTL OP SCH (20:54)
--- NOTE | 2022-11-06 21:00 | NUR ---
SCHEDULED MEDICATIONS GIVEN ORDERED.
--- NOTE | 2022-11-06 23:18 | NUR ---
PATIENT IS ASLEEP, NO SIGNS OF DISTRESS NOTED, NO SIGNS OF PAIN NOTED. ALL SAFETY MEASURES IN PLACE.
[2022-11-07] VITALS: BP 103/68
--- NOTE | 2022-11-07 00:30 | NUR ---
VITALS T 98.0, P 72, BP 103/68, RESP 16 AND O2 SATS 99% ON ROOM AIR. ALL SAFETY MEASURES IN PLACE.
[2022-11-07 04:00] VITALS: BP 133/79
--- NOTE | 2022-11-07 04:00 | NUR ---
BEDSIDE CARE DONE, NO SIGNS OF DISTRESS NOTED, PATIENT DENIES PAIN. CALL LIGHT WITHIN REACH.
--- NOTE | 2022-11-07 04:11 | NUR ---
SCHEDULED IV ANTIBIOTIC GIVEN ORDERED.
[2022-11-07] MEDS: LEVOTHYROXINE 0.075 MG TAB PO SCH (05:32)
[2022-11-07 07:07] LABS: BASOPHILS # (AUTO) 0.1 K/uL (0.00-0.22); BASOPHILS % (AUTO) 1.4 % (0.0-2.0); EOSINOPHILS # (AUTO) 0.4 K/uL (0-0.4); EOSINOPHILS % (AUTO) 9.5 % (0.0-4.0); HEMATOCRIT 38.2 % (36-52); HEMOGLOBIN 12.8 g/dL (12.0-18.0); LYMPHOCYTES # (AUTO) 1.5 K/uL (2.0-11.5); LYMPHOCYTES % (AUTO) 31.9 % (20.5-51.1); MEAN CORPUSCULAR HEMOGLOBIN 28 pg (27-31); MEAN CORPUSCULAR HGB CONC 34 g/dL (33-37); MEAN CORPUSCULAR VOLUME 83.8 fL (80-94); MONOCYTES # (AUTO) 0.4 K/uL (0.8-1.0); MONOCYTES % (AUTO) 9.4 % (1.7-9.3); NEUTROPHILS # (AUTO) 2.2 K/uL (1.8-7.7); NEUTROPHILS % (AUTO) 47.8 % (42.2-75.2); PLATELET COUNT (AUTO) 180 K/uL (140-450); RED BLOOD CELL COUNT(AUTO) 4.55 MIL/uL (4.20-6.10); RED CELL DISTRIBUTION WIDTH 14.5 % (11.6-13.7); WHITE BLOOD COUNT (AUTO) 4.6 K/uL (4.8-10.8)
--- NOTE | 2022-11-07 07:16 | NUR ---
PATIENT IS IN STABLE CONDITION. ENDORSED TO DAY NURSE FOR CONTINUITY OF CARE.
--- NOTE | 2022-11-07 07:50 | NUR ---
RECEIVED PATIENT FROM PM SHIFT NURSE FOR CONTINUITY OF CARE. PATIENT SEEN ASLEEP ON BED, NORMAL RISE AND FALL OF CHEST.
[2022-11-07 08:00] VITALS: BP 151/82
[2022-11-07 08:44] LABS: ANION GAP 13.8 (8-16); CARBON DIOXIDE 24.4 mmol/L (21-32); CREATININE 0.9 mg/dL (0.6-1.3); MAGNESIUM 2.2 mg/dL (1.8-2.4); PHOSPHORUS 2.8 mg/dL (2.5-4.9); POTASSIUM 3.2 mmol/L (3.5-5.1)
[2022-11-07] MEDS: ZONISAMIDE 100 MG CAP PO SCH (09:00)
[2022-11-07] MEDS: VITAMIN E 400 IU CAPLF PO SCH (09:00)
[2022-11-07] MEDS: TAMSULOSIN 0.4 MG CAP PO SCH (09:00)
[2022-11-07] MEDS ORDERED: PREGABALIN PO SCH ×2 (09:00)
[2022-11-07] MEDS: CYANOCOBALAMIN 100 MCG TAB PO SCH (09:00)
[2022-11-07] MEDS ORDERED: PREGABALIN 25 MG CAP ONE (09:44)
[2022-11-07] MEDS ORDERED: PREGABALIN 50 MG CAP ONE (09:45)
[2022-11-07] MEDS: ZINC SULF 220 MG CAP PO SCH (10:19)
[2022-11-07] MEDS: VENLAFAXINE XR 75 MG CAPER PO SCH (10:19)
[2022-11-07] MEDS: MEMANTINE 10 MG TAB PO SCH (10:21)
[2022-11-07] MEDS: ATORVASTATIN 20 MG TAB PO SCH (10:22)
[2022-11-07] MEDS: LORATADINE 10 MG TAB PO SCH (10:23)
[2022-11-07] MEDS: OXcarbazepine 150 MG TAB PO SCH (10:24)
[2022-11-07] MEDS: CLOPIDOGREL 75 MG TAB PO SCH (10:24)
[2022-11-07] MEDS: DOCUSATE SODIUM 100 MG GELCAP PO SCH (10:24)
[2022-11-07] MEDS: FAMOTIDINE 20 MG TAB PO SCH (10:25)
[2022-11-07] MEDS: risperiDONE 1 MG TAB PO SCH (10:25)
[2022-11-07] MEDS: SODIUM BICARBONATE 650 MG TAB PO SCH (10:25)
[2022-11-07] MEDS: clonazePAM 0.5 MG TAB PO SCH (10:27)
[2022-11-07] MEDS: levETIRAcetam 500 MG TAB PO SCH (10:28)
[2022-11-07] MEDS: PANTOPRAZOLE 40 MG INJ VIAL IVP SCH (10:31)
[2022-11-07] MEDS: LACTULOSE 20 GM/30 ML UDC PO SCH (10:31)
[2022-11-07 12:20] VITALS: BP 120/73
[2022-11-07 12:27] VITALS: BP 120/73
--- NOTE | 2022-11-07 15:49 | NUR ---
DISCHARGED PATIENT TO TRANSPORT. GOING HOME FOR HOSPICE CARE.
[2022-11-08] MEDS ORDERED: CYANOCOBALAMIN 1,000 MCG TAB PO SCH (09:00)
== END 2022-11-07 14:45 | disposition hospice, home (50) | DRG 603 ==
LOC: MED 22:11 → MTU 11-04 03:41
DX: L03.116 Cellulitis of left lower limb (principal); E87.0 Hyperosmolality and hypernatremia; N39.0 Urinary tract infection, site not specified; D68.59 Other primary thrombophilia; K86.2 Cyst of pancreas; E87.6 Hypokalemia; N20.0 Calculus of kidney; F32.A Depression, unspecified; E03.9 Hypothyroidism, unspecified; K59.00 Constipation, unspecified; F03.90 Unspecified dementia, unspecified severity, without behavioral disturbance, psychotic disturbance, mood disturbance, and anxiety; K31.89 Other diseases of stomach and duodenum; K42.9 Umbilical hernia without obstruction or gangrene; I25.10 Atherosclerotic heart disease of native coronary artery without angina pectoris; N43.3 Hydrocele, unspecified; Z20.822 Contact with and (suspected) exposure to COVID-19; G40.909 Epilepsy, unspecified, not intractable, without status epilepticus; I25.2 Old myocardial infarction; Z86.718 Personal history of other venous thrombosis and embolism; Z88.2 Allergy status to sulfonamides; Z88.0 Allergy status to penicillin
CPT/HCPCS: 36415; 71045; 76770; 80048; 80053; 81001; 82140; 82150; 83036; 83605; 83690; 83735; 83880; 84100; 84439; 84443; 84484; 85025; 85610; 85730; 87040; 87081; 87086; 93005; 93971; 96365; 96367; 97110; 97112; 97163-GP; 97530; 99285; C9113; J0295; J0360; J0690; J0696; J1644; J3475; J7060; Q0092

== ENCOUNTER 2022-12-10 21:40 | Emergency (ER) | payer OTHER, BC ==
[~2022-12-10] VITALS: Ht 175.3 cm; Wt 68.0 kg
[~2022-12-10 21:40] MED LIST changes: +CALC625T27 PO; -CHOL100084 PO; +CLON0.5T PO; +FAMO-90 PO; -IBUP-1842 PO; +LEVO-481 PO; -LEVO0.5S3 PO; +LEVO5TAB32 PO; -NITR100C1 PO; +OXCA300T PO; -PREG300C PO; -PSYL0.529 PO; -RANI-745 PO; -RIVA15TA1 PO; -SYN.05 PO; +SYN.075 PO; +TAMS0.4C96 PO; -TAMS0.4C97 PO; +VENL150C4 PO; -VENL150T PO; +ZINC30TA PO
[2022-12-10 21:44] VITALS: BP 119/71
--- NOTE | 2022-12-10 21:45 | NUR ---
PT PILO ALS. TAKEN TO BED 9
--- NOTE | 2022-12-10 21:55 | NUR ---
Dr. Soliz examining patient.
--- NOTE | 2022-12-10 21:59 | NUR ---
PT TAKEN TO CT
--- NOTE | 2022-12-10 22:12 | NUR ---
PT RETURN FROM CT
[2022-12-10] MEDS ORDERED: TRAM50TA3 PO (22:15)
[2022-12-10] MEDS ORDERED: [UNRECOGNIZED DRUG - CODE] PO (22:15)
[2022-12-10] MEDS ORDERED: RIVA15TA1 PO (22:15)
[2022-12-10] MEDS ORDERED: MELA3TER PO (22:15)
[2022-12-10] MEDS ORDERED: ZINC50CA3 PO (22:15)
[2022-12-10] MEDS ORDERED: PREG225C PO (22:15)
[2022-12-10] MEDS ORDERED: MEMA5TAB PO (22:15)
[2022-12-10] MEDS ORDERED: SODI650T2 PO (22:15)
[2022-12-10] MEDS ORDERED: METH-1213 PO (22:15)
--- NOTE | 2022-12-10 22:51 | NUR ---
HAIM BRADSHAW at bedside to staple patient's wound.
--- NOTE | 2022-12-10 23:31 | NUR ---
provided pericare for patient. no open wounds noted patient able to turn with some assistance. pt tolerated well. safety measures are in place.
--- NOTE | 2022-12-10 23:39 | NUR ---
at bedside with seemingly having a conversation
--- NOTE | 2022-12-10 23:44 | NUR ---
assisted patient on a bed flores due to stating, "He needs to poop he needs a bed flores i can't do it myself." Patient able to tolerate being on a bedpan. safety measures are in place.
[2022-12-11 00:06] VITALS: BP 118/70
--- NOTE | 2022-12-11 00:06 | NUR ---
Patient discharged. Written and verbal after care instructions given and explained to Karol SHIELDS. Karol verbalized understanding. Wheel Chair Assisted to car. All questions addressed prior to discharge. Advised to follow up with PMD.
== END 2022-12-11 00:06 | disposition home or self-care (01) ==
LOC: MED 21:40
DX: S01.01XA Laceration without foreign body of scalp, initial encounter (principal); Z88.0 Allergy status to penicillin; Z88.5 Allergy status to narcotic agent; Z88.2 Allergy status to sulfonamides; Z79.899 Other long term (current) drug therapy; I25.10 Atherosclerotic heart disease of native coronary artery without angina pectoris; F03.90 Unspecified dementia, unspecified severity, without behavioral disturbance, psychotic disturbance, mood disturbance, and anxiety; E03.9 Hypothyroidism, unspecified; E78.00 Pure hypercholesterolemia, unspecified; W18.30XA Fall on same level, unspecified, initial encounter; Y93.89 Activity, other specified; Y92.89 Other specified places as the place of occurrence of the external cause; Y99.8 Other external cause status
CPT/HCPCS: 12001; 70450; 72125; 99284